=== PATIENT | female | born 1975 | race African-American/Black ===

== ENCOUNTER → 2020-09-08 17:55 | Outpatient (CLI) | payer OTHER, SELFPAY ==
--- NOTE | ~2020-09-08 | MM_ITS ---
EXAMINATION: MM screening [facility] HISTORY: Screening TECHNIQUE: Craniocaudal and mediolateral oblique 3-D tomosynthesis images were obtained and synthetic 2-D images were generated. CAD analysis was submitted and interpreted. COMPARISON: Comparison to multiple prior studies sequentially, with oldest reviewed study dated 06/30. BREAST PARENCHYMAL COMPOSITION: There are scattered areas of fibroglandular density. FINDINGS: There is no evidence of suspicious mass, calcification, or architectural distortion to sugg est malignancy in either breast. There has been no suspicious interval change. IMPRESSION: 1. No mammographic evidence of malignancy. 2. Recommend routine screening mammography in one year. BI-RADS Category 1: Negative Reviewed, dictated and finalized at location A. 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
== END ==
PROVIDERS: PCP Internal Medicine; Visit Provider Obstetrics & Gynecology
DX: Z12.31 Encounter for screening mammogram for malignant neoplasm of breast (principal)
CPT/HCPCS: 77063; 77067

== ENCOUNTER 2021-06-16 19:36 | Emergency (ER) | payer OTHER, SELFPAY ==
[2021-06-16 19:46] VITALS: BP 132/91; PULSE 75; RESP 16; TEMP 36.4; O2SAT 100
[2021-06-16 20:06] LABS: Basophils Percent Auto 0.2 % (0.2-1.2); Eosinophils Percent Auto 0.9 % (0-4.4); Hematocrit 37.8 % (37.0-47.0); Hemoglobin 12.2 g/dL (12.0-15.0); Immature Granulocyte Absolute 0.01 K/mm3 (0.00-0.031); Immature Granulocyte Percent A 0.2 % (0-0.5); Lymphocytes Absolute Auto 1.72 K/mm3 (0.9-3.2); Mean Corpuscular HGB Conc 32.3 g/dl (32-36); Mean Corpuscular Hemoglobin 28.8 pg (26-34); Mean Corpuscular Volume 89.2 fl (80-100); Mean Platelet Volume 10.1 fl (7.4-10.4); Monocytes Absolute Auto 0.5 K/mm3 (0.1-0.6); Monocytes Percent Auto 12.6 % (2.6-8.5); Neutrophils Percent Auto 46.1 % (45.5-73.1); Platelet Count Result 240 k/mm3 (150-375); Red Blood Count 4.24 M/mm3 (4.2-5.4); Red Cell Distribution Width 13.4 % (11.5-14.5); White Blood Count 4.3 K/mm3 (4.5-10.0)
[2021-06-16 20:18] LABS: Alanine Aminotransferase 14 U/L (4-35); Albumin Level 3.9 g/dL (3.5-5.1); Alkaline Phosphatase 72 U/L (38-126); Anion Gap 5 mmol/L (8-16); Aspartate Amino Transferase 19 U/L (14-36); Bilirubin,Total 0.3 mg/dL (0.2-1.3); Blood Urea Nitrogen 12 mg/dL (7-17); Calcium 9.4 mg/dL (8.4-10.2); Carbon Dioxide 25 mmol/L (22-30); Chloride 106 mmol/L (98-107); Estimated CRCL calculation 88 ml/min; Estimated Glomerular Filt Rate > 60; Glucose 99 mg/dL (65-110); Potassium 4.4 mmol/L (3.4-5.0); Sodium 136 mmol/L (137-145)
[2021-06-16 20:57] LABS: INR 0.9
[2021-06-16 20:58] LABS: Partial Thromboplastin Time 25.6 SECONDS (22.3-36.8)
--- NOTE | 2021-06-16 21:57 | ED.GIBLEED ---
HPI - GI Bleed History of Present Illness HPI Narrative: 45 yo female presents to the ED with multiple complaints. She reports that she had unprotected anal sex a few days ago. Since that time she has had rectal pain and some blood in her stools. She also had vaginal intercourse at the same time. She use a condom for this. She is concerned that she may have an STD. No vaginal discharge. Related Data Allergies Allergy/AdvReac Type Severity Reaction Status Date / Time metronidazole Allergy Intermediate Rash Verified 02/15/19 08:55 fluconazole Allergy Unknown Rash Verified 02/15/19 08:55 Penicillins Allergy Unknown Verified 02/15/19 08:55 Review of Systems Review of Systems: All systems reviewed & are unremarkable except as noted in HPI and below Constitutional: Constitutional: Denies fever(s) ENT: Denies dizziness Cardiovascular: Cardiovascular: Denies chest pain Respiratory: Respiratory: Denies dyspnea Gastrointestinal: Gastrointestinal: Denies abdominal pain, Denies nausea and Denies vomiting Genitourinary: Genitourinary: Denies abnormal vaginal bleeding, Denies hematuria, Denies dysuria, Reports pelvic pain and Denies vaginal discharge Neurologic: Denies numbness and Denies weakness [facility] Social History Social History (Updated 06/24/21 @ 14:56 by Jed Houston MD) Gender identity (if verbalized by the patient): Female Sexual Orientation (if Verbalized by the Patient): Straight or Heterosexual Exam Const: General: healthy appearing, no acute distress and alert Orientation/consciousness: patient oriented x3 HENMT: Head: normal to inspection Neck: Neck: normal visual inspection Resp: Effort & Inspection: normal respiratory effort Auscultation: clear to auscultation bilaterally, no rales, no rhonchi and no wheezes Cardio: Jugular venous distension: no JVD Rate: regular rate Rhythm: regular rhythm Heart sounds: no murmurs GI: Inspection: non-distended GI Palp: Yes Soft to palpation and No Tenderness to palpation present (GI) Rectal Exam: No heme positive stool : Speculum Exam - Vagina: abnormal vaginal discharge guan Skin: General skin exam: normal color Neuro: General: patient oriented x3 and moves all extremities Speech: normal speech Extrem: General: no edema Psych: Appearance: well kempt Affect: normal affect Course Vital Signs Vital signs: Vital Signs Temperature 36.4 C L 06/16/21 19:46 Pulse Rate 75 06/16/21 19:46 Respiratory Rate 16 06/16/21 19:46 Blood Pressure 132/91 H 06/16/21 19:46 Pulse Oximetry 100 06/16/21 19:46 Temperature 36.6 C 06/16/21 22:58 Pulse Rate 80 06/17/21 04:11 Respiratory Rate 18 06/17/21 04:11 Blood Pressure 110/80 06/17/21 04:11 Pulse Oximetry 99 06/17/21 04:11 MDM - GI Bleed MDM Narrative Medical decision making narrative: I will treat empirically for STDs. Medical Records Attestation: I reviewed the patient's medical records. Lab Data Attestation: I reviewed the patient's lab results. Result diagrams: 06/16/21 19:59 06/16/21 19:59 Labs: Lab Results 06/16/21 06/16/21 06/16/21 Range/Units 19:59 19:59 19:59 WBC 4.3 L (4.5-10.0) K/mm3 RBC 4.24 (4.2-5.4) M/mm3 Hgb 12.2 (12.0-15.0) g/dL Hct 37.8 (37.0-47.0) % MCV 89.2 (80-100) fl MCH 28.8 (26-34) pg MCHC 32.3 (32-36) g/dl RDW 13.4 (11.5-14.5) % Plt Count 240 (150-375) k/mm3 MPV 10.1 (7.4-10.4) fl Immature Gran % (Auto) 0.2 (0-0.5) % Neut % (Auto) 46.1 (45.5-73.1) % Lymph % (Auto) 40.0 (18.3-44.2) % [place] % (Auto) 12.6 H (2.6-8.5) % Eos % (Auto) 0.9 (0-4.4) % Baso % (Auto) 0.2 (0.2-1.2) % Lymph # (Auto) 1.72 (0.9-3.2) K/mm3 [place] # (Auto) 0.5 (0.1-0.6) K/mm3 Eos # (Auto) 0.0 (0-0.3) K/mm3 Baso # (Auto) 0.0 (0.0-0.1) K/mm3 Abs Immat Gran (auto) 0.01 (0.00-0.031) K/mm3 Absolute Neuts (auto) 2.0 (1.3-6.7) K/mm3 Abs
[2021-06-16 22:58] VITALS: BP 114/77; PULSE 62; RESP 18; TEMP 36.6; O2SAT 99
[2021-06-17 00:18] VITALS: BP 100/58; PULSE 67; RESP 18; O2SAT 99
--- NOTE | 2021-06-17 00:30 | PC.NURSE ---
pelvic setup done by this rn at this time. pt states shes getting antsy. this rn informed pt that the doctor will be in as soon as he can to do the pelvic. md notified.
[2021-06-17 01:45] VITALS: BP 99/58; PULSE 71; RESP 18; O2SAT 100
--- NOTE | 2021-06-17 01:45 | PC.NURSE ---
pt states she still is antsy due to the wait time. states shes nervous. this RN apologized for the wait, updated pt on lab work, informed her all we are waiting on is the pelvic which doctor will do as soon as he can.
--- NOTE | 2021-06-17 02:49 | PC.NURSE ---
Pt up to the desk asking for an update pt states I have been here since seven last night and nothing has been done for me. Do you know me from somewhere or does someone that is working her know me and have a vendetta against me? Is that why nothing has been done? Pt assured that that is not the case and that her lab work is all back and we have been very busy. Pt continues to state she is worried we aren't taking care of her because we know her.
[2021-06-17 03:00] VITALS: BP 102/70; PULSE 80; RESP 18; O2SAT 99
--- NOTE | 2021-06-17 03:00 | PC.NURSE ---
this rn went into room to check on pt, pt angry at this time, asking me for my last name. this rn again apologized for the wait but explains weve been busy. pt states i dont care about the wait. i just dont know why you're treating me this way. do you have a personal vendetta against me? do you know me or something? this rn apologizes to pt, tells her that md will be in as soon as he can. instructs her to use call light if she needs something.
[2021-06-17] MEDS: cefTRIAXone 1 GM VIAL 0.5 GM IM (03:56)
[2021-06-17] MEDS: LIDOCAINE HCL 1% LOCAL INJ 20 ML VIAL (03:56)
[2021-06-17] MEDS: DOXYCYCLINE HYCLATE 100 MG TABLET PO (03:56)
--- NOTE | 2021-06-17 04:02 | PC.NURSE ---
this RN in room 10 giving meds. pt apologizes to this rn for the way she acted. she states a lot of people are mad at me right now and im just paranoid that everyone is mad at me. this rn assures pt that im not mad at her and that theres no reason to apologize.
[2021-06-17 04:11] VITALS: BP 110/80; PULSE 80; RESP 18; O2SAT 99
== END 2021-06-17 04:12 | disposition home or self-care (01) ==
PROVIDERS: Emergency Provider Emergency Medicine; PCP Internal Medicine
DX: N72 Inflammatory disease of cervix uteri (principal); K62.5 Hemorrhage of anus and rectum
CPT/HCPCS: 36415; 80053; 85025; 85610; 85730; 86850; 86900; 86901; 87070; 87491; 87591; 87808; 96372; 99284; A9270; J0696

== ENCOUNTER → 2021-09-10 16:40 | Outpatient (CLI) | payer OTHER, SELFPAY ==
--- NOTE | ~2021-09-10 | MM_ITS ---
EXAMINATION: MM screening [facility] w [facility] HISTORY: Screening TECHNIQUE: Craniocaudal and mediolateral oblique 3-D tomosynthesis images were obtained and synthetic 2-D images were generated. CAD analysis was submitted and interpreted. COMPARISON: Comparison to multiple prior studies sequentially, with oldest reviewed study dated 06/30. BREAST PARENCHYMAL COMPOSITION: There are scattered areas of fibroglandular density. FINDINGS: There is no evidence of suspicious mass, calcification, or architectural distortion to sugg est malignancy in either breast. There has been no suspicious interval change. IMPRESSION: 1. No mammographic evidence of malignancy. 2. Recommend routine screening mammography in one year. BI-RADS Category 1: Negative. Reviewed, dictated and finalized at location A.
== END ==
PROVIDERS: PCP Internal Medicine; Visit Provider Obstetrics & Gynecology
DX: Z12.31 Encounter for screening mammogram for malignant neoplasm of breast (principal)
CPT/HCPCS: 77063; 77067

== ENCOUNTER 2022-05-27 12:26 | Emergency (ER) | payer OTHER, SELFPAY ==
[2022-05-27] VITALS (14 sets, daily range): BP systolic 116–134; BP diastolic 62–81; PULSE 77–88; RESP 16–23; TEMP 36.3; O2SAT 99–100
--- NOTE | ~2022-05-27 | XR_ITS ---
EXAMINATION: XR chest 2V DATE: 05/27/2022 12:58 INDICATION: Chest pain. Shortness of breath. Cough. TECHNIQUE: Frontal and lateral views of the chest were obtained. COMPARISON: Chest 2 views 01/06/2018 FINDINGS: The chest demonstrates clear lungs without pneumonia, pleural effusion, or pneumothorax. Th e heart size is normal. IMPRESSION: 1. No acute cardiopulmonary disease. Reviewed, dictated and finalized at location A.
--- NOTE | 2022-05-27 12:29 | ECG_ITS ---
Measurements Intervals [place] Rate: 82 P: 58 VT: 167 QRS: 13 QRSD: 78 T: 40 QT: 366 QTc: 429 Interpretive Statements SINUS RHYTHM VOLTAGE CRITERIA FOR LVH BASELINE WANDER- V6 BORDERLINE ECG Electronically Signed On 05-27-2022 18:37:51 CDT by Jeremiah Benitez D.O.
[2022-05-27 12:55] LABS: Basophils Percent Auto 0.3 % (0.2-1.2); Eosinophils Percent Auto 0.7 % (0-4.4); Hematocrit 36.5 % (37.0-47.0); Hemoglobin 11.7 g/dL (12.0-15.0); Immature Granulocyte Absolute 0.02 K/mm3 (0.00-0.031); Immature Granulocyte Percent A 0.3 % (0-0.5); Lymphocytes Absolute Auto 1.97 K/mm3 (0.9-3.2); Lymphocytes Percent Auto 33.1 % (18.3-44.2); Mean Corpuscular HGB Conc 32.1 g/dl (32-36); Mean Corpuscular Hemoglobin 28.6 pg (26-34); Mean Corpuscular Volume 89.2 fl (80-100); Mean Platelet Volume 10.5 fl (7.4-10.4); Monocytes Absolute Auto 0.4 K/mm3 (0.1-0.6); Monocytes Percent Auto 7.1 % (2.6-8.5); Neutrophils Absolute Auto 3.5 K/mm3 (1.3-6.7); Neutrophils Percent Auto 58.5 % (45.5-73.1); Platelet Count Result 235 k/mm3 (150-375); Red Blood Count 4.09 M/mm3 (4.2-5.4); Red Cell Distribution Width 13.5 % (11.5-14.5)
[2022-05-27 12:59] LABS: Alanine Aminotransferase 13 U/L (6-35); Albumin Level 4.2 g/dL (3.5-5.1); Alkaline Phosphatase 63 U/L (38-126); Anion Gap 5 mmol/L (8-16); Aspartate Amino Transferase 23 U/L (14-36); Bilirubin,Total 0.5 mg/dL (0.2-1.3); Blood Urea Nitrogen 9 mg/dL (7-17); Calcium 8.5 mg/dL (8.4-10.2); Carbon Dioxide 26 mmol/L (22-30); Chloride 104 mmol/L (98-107); Estimated CRCL calculation 90 ml/min; Estimated Glomerular Filt Rate > 60; Glucose 88 mg/dL (65-110); Lipase 56 U/L (23-300); Potassium 3.7 mmol/L (3.4-5.0); Sodium 135 mmol/L (137-145)
[2022-05-27 13:00] LABS: Partial Thromboplastin Time 26.5 SECONDS (22.3-36.8); Prothrombin Time 12.9 Seconds (11.1-14.7)
[2022-05-27 13:11] LABS: Troponin I < 0.012 ng/mL (0.000-0.034)
[2022-05-27 16:16] LABS: Troponin I < 0.012 ng/mL (0.000-0.034)
--- NOTE | 2022-05-27 16:43 | ED.GENADULT ---
HPI - General Adult General Chief complaint: Chest Pain Stated complaint: shortness of breath Time Seen by Provider: 05/27/22 15:40 History of Present Illness HPI narrative: 46-year-old female presenting to the emergency department for evaluation of intermittent shortness of breath and left-sided chest pain. That has been going on for approximately 1 week. Patient states she is also had intermittent lower extremity swelling. Patient states that her legs were swollen yesterday but have improved. Patient has no current leg swelling. Patient does have intermittent cough as well. Patient describes the left-sided chest pain as short and brief. Patient stated is not worsened with cough is not worsened with deep inspiration and she is unable to do any activities to induce it. She states it happens multiple times a day and is very short lasting. Patient denies any prior history of IN. Patient denies any prior history of PE or DVT. Related Data Allergies Allergy/AdvReac Type Severity Reaction Status Date / Time metronidazole Allergy Intermediate Rash Verified 02/15/19 08:55 fluconazole Allergy Unknown Rash Verified 02/15/19 08:55 Penicillins Allergy Unknown Verified 02/15/19 08:55 Review of Systems Review of Systems: CONSTITUTIONAL: Denies fever, chills, or sweats. EYES: Denies visual changes, redness, or discharge. ENT: Denies rhinorrhea, congestion, sore throat, or otalgia. CARDIOVASCULAR: See HPI RESPIRATORY: See HPI GASTROINTESTINAL: Denies abdominal pain, nausea, vomiting, or diarrhea. GENITOURINARY: Denies dysuria or hematuria. SKIN: Denies rash or itching. MUSCULOSKELETAL: Denies back pain, joint pain, or myalgia. NEUROLOGIC: Denies headache, numbness, or weakness. [facility] Social History Social History (Updated 06/24/21 @ 14:56 by Jed Houston MD) Gender identity (if verbalized by the patient): Female Sexual Orientation (if Verbalized by the Patient): Straight or Heterosexual Exam Narrative: APPEARANCE: Well appearing, no pain, no distress, well-nourished. HEAD: normocephalic, atraumatic. EYES: PERRLA/EOMI, conjunctivae clear. NOSE: Normal no drainage THROAT: Pharynx clear, no exudate. NECK: Supple. No adenopathy, no masses. RESPIRATORY: Airway patent, respirations nonlabored. Clear to auscultation bilaterally, no rales, rhonchi, wheezing. CARDIOVASCULAR: Regular rate and rhythm without murmurs rubs or gallops. ABDOMINAL: Soft, nontender, nondistended, normal bowel sounds MUSCULOSKELETAL: Moves all extremities. Strength/ROM intact, No edema, No calf tenderness. NEURO: Alert. Cranial nerves II through XII intact. Grossly intact SKIN: Warm, dry. Normal Color Course Course Emergency Course: EKG showed normal sinus rhythm with no acute abnormality. Chest x-ray showed no acute cardiopulmonary disease. Patient had negative serial troponins. Patient's D-dimer was not elevated. Patient had no lower extremity edema or tenderness. Patient was afebrile with no leukocytosis. Electrolytes are within normal limits. Vital Signs Vital signs: Vital Signs Temperature 97.4 F L 05/27/22 12:46 Pulse Rate 86 05/27/22 12:46 Respiratory Rate 16 05/27/22 12:46 Blood Pressure 116/81 05/27/22 12:46 Pulse Oximetry 100 05/27/22 12:46 Oxygen Delivery Room Air 05/27/22 12:46 Temperature 97.4 F L 05/27/22 12:46 Pulse Rate 81 05/27/22 17:30 Respiratory Rate 20 05/27/22 17:30 Blood Pressure 130/62 05/27/22 17:30 Pulse Oximetry 99 05/27/22 17:30 Oxygen Delivery Room Air 05/27/22 12:46 Medical Decision Making Vital Signs Vital Signs: Vital Signs Temperature 97.4 F L 05/27/22 12:46 Pulse Rate 86 05/27/22 12:46 Respiratory Rate 16 05/27/22 12:46 Blood Pressure 116/81 05/27/22 12:46 Pulse Oximetry 100 05/27/22 12:46 Oxygen Delivery Room Air 05/27/22 12:46 Temperature 97.4 F L 05/27/22 12:46 Pulse Rate 81 05/27/22 17:30 Respiratory Rate 20 05/27/22
[2022-05-27 17:06] LABS: D Dimer 0.23 ug/mL (<0.48)
== END 2022-05-27 18:07 | disposition home or self-care (01) ==
PROVIDERS: Emergency Provider Emergency Medicine
DX: R07.89 Other chest pain (principal); R94.31 Abnormal electrocardiogram [ECG] [EKG]
CPT/HCPCS: 36415; 71046; 80053; 83690; 84484; 85025; 85380; 85610; 85730; 93005; 99284

== ENCOUNTER 2022-10-20 04:38 | Emergency (ER) | payer OTHER, SELFPAY ==
[2022-10-20 04:43] VITALS: BP 128/72; PULSE 82; RESP 18; TEMP 36.6; O2SAT 100
[2022-10-20 06:51] LABS: Influenza A QL RT-PCR Negative (Negative); Influenza B QL RT-PCR Negative (Negative); SARS-CoV-2 RNA PCR Negative
--- NOTE | 2022-10-20 07:44 | ED.URI ---
HPI - URI/Sore Throat General Chief Complaint: Upper Respiratory Infection Stated Complaint: sore throat, sinus Time Seen by Provider: 10/20/22 07:01 History of Present Illness HPI Narrative: This is a 46-year-old female who denies past medical history, presenting to the emergency department with complaints of sore throat, nasal congestion and diffuse myalgias for the past 2 days. She states her son's classmates have had similar symptoms. She has tried home remedies without significant improvement. She denies nausea vomiting or diarrhea. Related Data Allergies Allergy/AdvReac Type Severity Reaction Status Date / Time metronidazole Allergy Intermediate Rash Verified 02/15/19 08:55 fluconazole Allergy Unknown Rash Verified 02/15/19 08:55 Penicillins Allergy Unknown Verified 02/15/19 08:55 Review of Systems Review of Systems: CONSTITUTIONAL: Denies fever, chills, or sweats. EYES: Denies visual changes, redness, or discharge. ENT: Rhinorrhea, congestion, sore throat, otalgia CARDIOVASCULAR: Denies chest pain, palpitations, or edema. RESPIRATORY: Denies cough or dyspnea. GASTROINTESTINAL: Denies abdominal pain, nausea, vomiting, or diarrhea. GENITOURINARY: Denies dysuria or hematuria. SKIN: Denies rash or itching. MUSCULOSKELETAL: Myalgias denies back pain, joint pain, NEUROLOGIC: Denies headache, numbness, dizziness, or weakness. PSYCHIATRIC: Denies anxiety or depression. [facility] Social History Social History Gender identity (if verbalized by the patient): Female Sexual Orientation (if Verbalized by the Patient): Straight or Heterosexual Exam Narrative: GENERAL: Well-developed, well-nourished, appears uncomfortable HEAD: Normocephalic, atraumatic. EYES: PERRLA and EOMI. ENT: Nares clear, no rhinorrhea or epistaxis. Mucous membranes moist. Oropharynx without tonsillar hypertrophy exudate or other lesions. Right TM with clear fluid and small amount of bulging without purulence or significant erythema, left TM pearly guan nonbulging NECK: Supple. No adenopathy or masses. No carotid bruits or JVD CHEST: Clear to auscultation. No respiratory distress. No wheezes rales or rhonchi HEART: Regular rate and rhythm. No murmur heard. Normal peripheral pulses. ABDOMEN: Soft, nontender, nondistended, normal active bowel sounds. EXTREMITIES: Normal range of motion. No edema. SKIN: Warm, dry, no rash. NEURO: No focal deficits. Alert and oriented x3. PSYCH: Normal mood and affect. Course Course Emergency Course: 09:12 - COVID flu and strep swabs negative. Discussed findings with the patient and recommendations for symptomatic management at home. Discussed return emergent precautions including signs/symptoms of respiratory distress and intractable vomiting. The patient voiced understanding and is comfortable with the plan. All questions answered to her satisfaction. Vital Signs Vital signs: Vital Signs Temperature 97.9 F 10/20/22 04:43 Pulse Rate 82 10/20/22 04:43 Respiratory Rate 18 10/20/22 04:43 Blood Pressure 128/72 10/20/22 04:43 Pulse Oximetry 100 10/20/22 04:43 Oxygen Delivery Room Air 10/20/22 04:43 Temperature 98.3 F 10/20/22 08:42 Pulse Rate 82 10/20/22 04:43 Respiratory Rate 18 10/20/22 04:43 Blood Pressure 128/72 10/20/22 04:43 Pulse Oximetry 100 10/20/22 04:43 Oxygen Delivery Room Air 10/20/22 04:43 MDM - URI/Sore Throat MDM Narrative Medical decision making narrative: Plan: Labs, pain control, reassess Differential Diagnosis Differential diagnosis: Likely upper respiratory infection, influenza and other (COVID, other) Lab Data Labs: Lab Results 10/20/22 10/20/22 Range/Units 06:09 08:10 Influenza A (RT-PCR) Negative (Negative) Influenza B (RT-PCR) Negative (Negative) SARS-CoV-2 RNA (RT-PCR) Negative Group A Strep (PCR) Not detected (Negative) UCG Bedside Result
[2022-10-20 08:04] VITALS: TEMP 36.8
[2022-10-20] MEDS: LIDOCAINE HCL 2% VISC SOLN 15 ML UDC PO (08:12)
[2022-10-20] MEDS: ACETAMINOPHEN 500 MG TABLET 1000 MG PO (08:12)
[2022-10-20 08:42] VITALS: TEMP 36.8
[2022-10-20 08:46] LABS: Strep Group A RT-PCR NOT DETECTED (Negative)
== END 2022-10-20 09:40 | disposition home or self-care (01) ==
PROVIDERS: Emergency Medicine; Emergency Provider Preventive Medicine Aerospace Medicine; PCP Internal Medicine
DX: J06.9 Acute upper respiratory infection, unspecified (principal); H92.01 Otalgia, right ear; Z20.822 Contact with and (suspected) exposure to COVID-19
CPT/HCPCS: 81025; 87636; 87651; 99283; A9270

== ENCOUNTER → 2022-10-23 16:07 | Outpatient (CLI) | payer OTHER, SELFPAY ==
--- NOTE | ~2022-10-23 | MM_ITS ---
EXAMINATION: MM screening [facility] BI w [facility] HISTORY: Screening TECHNIQUE: Craniocaudal and mediolateral oblique 3-D tomosynthesis images were obtained and synthetic 2-D images were generated. CAD analysis was submitted and interpreted. COMPARISON: Comparison to multiple prior studies sequentially, with oldest reviewed study dated 06/30. BREAST PARENCHYMAL COMPOSITION: There are scattered areas of fibroglandular density. FINDINGS: There is no evidence of suspicious mass, calcification, or architectural distortion to sugg est malignancy in either breast. There has been no suspicious interval change. IMPRESSION: 1. No mammographic evidence of malignancy. 2. Recommend routine screening mammography in one year. BI-RADS Category 1: Negative Reviewed, dictated and finalized at location B. 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
== END ==
PROVIDERS: PCP Obstetrics & Gynecology; Visit Provider Obstetrics & Gynecology
DX: Z12.31 Encounter for screening mammogram for malignant neoplasm of breast (principal)
CPT/HCPCS: 77063; 77067

== ENCOUNTER 2023-03-09 18:04 | Emergency (ER) | payer OTHER, SELFPAY ==
[2023-03-09 18:18] VITALS: BP 105/76; PULSE 89; RESP 18; TEMP 36.4; O2SAT 99
--- NOTE | 2023-03-09 18:43 | ED.GENADULT ---
HPI - General Adult General Chief complaint: Upper Respiratory Infection Stated complaint: Sore Throat/Ears Irritation Time Seen by Provider: 03/09/23 18:43 Source: patient, RN notes reviewed and old records reviewed Mode of arrival: ambulatory Limitations: no limitations History of Present Illness HPI narrative: 47-year-old female presents to the [facility] with complaints of a sore throat and right ear discomfort since yesterday. No treatment prior to arrival. Son started with similar symptoms on Friday, 4 days ago. Diagnosed with a virus. Onset (ago): day(s) (1) Related Data Home Medications Medication Instructions Recorded Confirmed epinephrine 0.3 mg/0.3 mL 03/09/23 injection, auto-injector escitalopram oxalate 10 mg tablet mg 03/09/23 mometasone 0.1 % topical ointment topical 03/09/23 Allergies Allergy/AdvReac Type Severity Reaction Status Date / Time metronidazole Allergy Intermediate Rash Verified 02/15/19 08:55 fluconazole Allergy Unknown Rash Verified 02/15/19 08:55 Penicillins Allergy Unknown Unknown Verified 03/09/23 18:17 shellfish derived Allergy Unknown Verified 03/09/23 18:17 Review of Systems Review of Systems: All systems reviewed & are unremarkable except as noted in HPI and below Constitutional: Constitutional: Reports no additional constitutional complaints Eyes: Eyes: Reports no additional eye complaints ENT: Reports as per HPI, Reports otalgia and Reports sore throat Cardiovascular: Cardiovascular: Reports no additional cardiovascular complaints, Denies chest pain and Denies dyspnea Respiratory: Respiratory: Reports no additional respiratory complaints, Denies chest congestion, Denies cough and Denies dyspnea Gastrointestinal: Gastrointestinal: Reports no additional gastrointestinal complaints, Denies abdominal pain, Denies nausea and Denies vomiting Musculoskeletal: Musculoskeletal: Reports no additional musculoskeletal complaints Integumentary/Breasts: Skin/Breast: Reports system reviewed and no additional complaints, except as docu Neurologic: Reports system reviewed and no additional complaints, except as documented Psychiatric: Psychiatric: Reports no additional psychiatric complaints Allergic/Immunologic: Allergic/Immunologic: Reports no additional allergic/immunologic complaints PMFSH Social History Social History Gender identity (if verbalized by the patient): Female Sexual Orientation (if Verbalized by the Patient): Straight or Heterosexual Comments At the time of my signature, I reviewed and agree with the nursing past medical, surgical, social, and family history. There is no relevant family history pertinent to the patient complaint. Exam Const: General: cooperative, healthy appearing, comfortable, no acute distress, well developed, alert and well nourished Nutritional Appearance: well nourished Orientation/consciousness: patient oriented x3 Limitations: no limitations HENMT: Head: normal to inspection Ears: hearing grossly normal bilaterally, external ears normal, EAC's normal and TM abnormal bulging on the right Face/Nose/Sinus: Normal external nose present, Normal nares present, Normal nasal mucous membranes and turbinates present and normal facial exam Face and sinus: normal facial exam, sinuses nontender and face symmetric Mouth: Yes Normal oral and palatal mucosa present, Yes lip normal and Yes moist mucous membranes Throat: posterior oropharynx normal, uvula midline and postnasal drainage Eyes: General: appearance normal, both eyes and all related structures Alignment and Position: alignment normal Periorbital: periorbital findings normal Conjunctivae: conjunctivae normal Pupils: Equal, round and reactive pupils present EOM: EOMs intact bilaterally Neck: Neck: normal visual inspection, full ROM, no lymphadenopathy and no meningeal signs Chest: Chest palpation & inspection: norm
== END 2023-03-09 19:04 | disposition home or self-care (01) ==
PROVIDERS: Emergency Provider Nurse Practitioner; PCP Internal Medicine
DX: J06.9 Acute upper respiratory infection, unspecified (principal); H65.01 Acute serous otitis media, right ear
CPT/HCPCS: 87081; 87880; 99213; G0463

== ENCOUNTER 2023-10-05 04:35 | Emergency (ER) | payer OTHER, SELFPAY ==
[2023-10-05 04:36] VITALS: BP 117/77; PULSE 104; RESP 16; TEMP 36.7; O2SAT 98
--- NOTE | 2023-10-05 05:46 | PC.NURSE ---
Pt approached triage desk and states that she is going to home to lay down and does not want to be seen. Pt ambulated out of ED with steady gait
== END 2023-10-05 06:33 | disposition left against medical advice (07) ==
LOC: ANHED 05:53
PROVIDERS: PCP Internal Medicine
DX: R10.32 Left lower quadrant pain (principal)
CPT/HCPCS: 99199

== ENCOUNTER 2024-01-20 17:57 | Emergency (ER) | payer OTHER, SELFPAY ==
[2024-01-20 18:09] VITALS: BP 131/82; PULSE 95; RESP 16; TEMP 37; O2SAT 99
--- NOTE | 2024-01-20 18:21 | ED.EXTPRO ---
HPI - Extremity Problem General Chief complaint: Extremity Problem,Nontraumatic Stated complaint: Left Ankle Irritation Time Seen by Provider: 01/20/24 18:21 Source: patient Mode of arrival: ambulatory Limitations: no limitations History of Present Illness HPI Narrative: 48 y/o female presented for c/o possible insect bite to the left ankle last night. Endorses improvement in the swelling since last night, but it is not fully resolved and she reports a small black dot and is concerned for insect implanting eggs into her skin. she has applied rubbing alcohol to the site. She has been able to walk on the leg without difficulty today. She has not taken anything for pain. Denies numbness, tingling, weakness or discoloration of the foot. Related Data Home Medications Medication Instructions Recorded Confirmed No Home Medications 01/20/24 01/20/24 Allergies Allergy/AdvReac Type Severity Reaction Status Date / Time metronidazole Allergy Intermediate Rash Verified 01/20/24 18:25 fluconazole Allergy Unknown Rash Verified 01/20/24 18:25 Penicillins Allergy Unknown Unknown Verified 01/20/24 18:25 shellfish derived Allergy Unknown Verified 01/20/24 18:25 Review of Systems Review of Systems: CONSTITUTIONAL: Denies body aches, fever, chills, or sweats. EYES: Denies visual changes, redness, or discharge. ENT: Denies rhinorrhea, congestion CARDIOVASCULAR: Denies chest pain, palpitations, or edema. RESPIRATORY: Denies cough or dyspnea. GASTROINTESTINAL: Denies abdominal pain, nausea, vomiting, or diarrhea. SKIN: reports left ankle swelling, black spot at center MUSCULOSKELETAL: Denies back pain, joint pain, or myalgia. NEUROLOGIC: Denies headache, numbness, tingling, or weakness. [facility] Social History Social History Gender identity (if verbalized by the patient): Female Sexual Orientation (if Verbalized by the Patient): Straight or Heterosexual Comments At time of signature, I have reviewed and agree with nursing past medical, surgical, social and family history unless otherwise noted. Please see nursing chart for further information. There is no relevant family history pertinent to the presenting complaint Exam Narrative: GENERAL: Well-appearing ENT: Mucous membranes moist. Oropharynx without edema, erythema or lesions. NECK: Supple. No lymphadenopathy CHEST: Clear to auscultation. HEART: Regular rate and rhythm. SKIN: Warm, dry. Left lateral ankle with minimal localized swelling, flat darkened round pinpoint lesion at the center; nontender, no warmth, induration or erythema. Full ROM to ankle. Ambulates with steady gait. NEURO: Alert and oriented x3. Extrem: Ankle/foot/toe images: 1. left lateral ankle localized swelling Course Course Emergency Course: Patient is aware of diagnosis, understands and agrees to treatment plan. Anticipatory guidance given. Patient agrees to follow-up as directed and is aware of reasons to seek care at the emergency department. Portions of this record may have been created with voice recognition software Level of Care: Express Care Visit Vital Signs Vital signs: Vital Signs Temperature 98.6 F 01/20/24 18:09 Pulse Rate 95 01/20/24 18:09 Respiratory Rate 16 01/20/24 18:09 Blood Pressure 131/82 01/20/24 18:09 Pulse Oximetry 99 01/20/24 18:09 Oxygen Delivery Room Air 01/20/24 18:09 Temperature 98.6 F 01/20/24 18:09 Pulse Rate 95 01/20/24 18:09 Respiratory Rate 16 01/20/24 18:09 Blood Pressure 131/82 01/20/24 18:09 Pulse Oximetry 99 01/20/24 18:09 Oxygen Delivery Room Air 01/20/24 18:09 Reviewed MDM - Extremity (Nontraumatic) MDM Narrative Medical decision making narrative: Discussed physical exam findings; no signs of infection or indication for abx. Advised supportive measures and signs/symptoms to go to the ER. Pt is appropriate for outpt treatment
== END 2024-01-20 18:35 | disposition home or self-care (01) ==
PROVIDERS: Emergency Provider Nurse Practitioner Family; PCP Internal Medicine
DX: S90.562A Insect bite (nonvenomous), left ankle, initial encounter (principal); W57.XXXA Bitten or stung by nonvenomous insect and other nonvenomous arthropods, initial encounter
CPT/HCPCS: 99211; G0463

== ENCOUNTER 2024-01-26 17:48 | Emergency (ER) | payer OTHER, SELFPAY ==
--- NOTE | ~2024-01-26 | CT_ITS ---
EXAMINATION: CT soft tissue neck w con DATE: 01/26/2024 21:51 INDICATION: Fever, throat pain, evaluate for peritonsillar or retropharyngeal abscess. TECHNIQUE: Computed tomography (CT) of the neck was performed with 75 mL Omnipaque-350 intravenous co ntrast. The dose-length product was 445.12 mGy-cm. COMPARISON: None FINDINGS: Enlarged thyroid gland, no significant nodules. Normal parotid glands. Prominent bilateral submandi bular glands. There is no cervical lymphadenopathy. There are no masses identified. The superior mediastinum is unremarkable. The airway is unremarkable. Parapharyngeal and pre-glottic fat plan es are preserved. Normal enhancing neck vessels. The orbits are unremarkable. Visualized sinuses and mastoid air cells are well aerated. There are lungs. Normal regional bones. IMPRESSION: Mildly enlarged bilateral submandibular glands. Otherwise normal CT soft tissue neck findings. Reviewed, dictated and finalized at location K.
--- NOTE | ~2024-01-26 | CT_ITS ---
EXAMINATION: CTA chest PE protocol DATE: 01/26/2024 21:52 INDICATION: chest pain, eval for PE TECHNIQUE: Computed tomography angiography (CTA) of the chest was performed with 100 mL Omnipaque-350 intravenous contrast timed to evaluate the pulmonary arteries. Coronal maximum intensity projection 3D-reconstructions were created by the technologist. The dose-length product (DLP) was 465.38 mGy-cm. Automated exposure control and iterative reconstruction technique were employed. COMPARISON: X-ray chest, same date. FINDINGS: Lung parenchyma and airways: Clear. Pleura: Unremarkable. Thoracic inlet, axillae and chest wall: Enlarged thyroid. Thoracic aorta: No significant dilation. No dissection. Mediastinum: Normal. Heart and pericardium: Normal. Coronary artery calcifications: Absent. Upper abdomen: No significant finding. Bones: No acute osseous finding. Pulmonary arteries: Study quality: Adequate. No pulmonary emboli detected. IMPRESSION: No CT evidence of acute pulmonary embolus. No acute process detected in the chest. Thyroid goiter. Reviewed, dictated and finalized at location K.
--- NOTE | ~2024-01-26 | XR_ITS ---
EXAMINATION: XR chest 2V Exam Date/Time: 01/26/2024 18:00 CDT HISTORY: dyspnea, COUGH, ELEVATED HR Comparison: 05/28/2022. RESULT: Lines, tubes, and devices: None. Lungs and pleura: Clear. Cardiomediastinal silhouette: Stable. Other: No acute osseous or upper abdominal finding. IMPRESSION: No acute cardiopulmonary process. Reviewed, dictated and finalized at location K.
--- NOTE | 2024-01-26 17:49 | ECG_ITS ---
Measurements Intervals [place] Rate: 116 P: 51 IA: 154 QRS: 6 QRSD: 77 T: 39 QT: 302 QTc: 420 Interpretive Statements SINUS TACHYCARDIA DELAYED PRECORDIAL R/S TRANSITION VOLTAGE CRITERIA FOR LVH ABNORMAL ECG COMPARED TO ECG 05/27/2022 12:33:58 SINUS TACHYCARDIA NOW PRESENT Electronically Signed On 01-26-2024 19:29:26 CDT by Jeremiah Benitez D.O.
[2024-01-26 18:46] VITALS: BP 131/81; PULSE 118; RESP 20; TEMP 38.7; O2SAT 99
--- NOTE | 2024-01-26 18:52 | ED.GENADULT ---
HPI - General Adult General Chief complaint: Chest Pain <Mireya Godfrey, PIN DRAFTING MACHINE TENDER - Last Filed: 01/26/24 19:01> Stated complaint: chest pain, dyspnena <Mireya Godfrey, PIN DRAFTING MACHINE TENDER - Last Filed: 01/26/24 19:01> Time Seen by Provider: 01/26/24 18:52 <Mireya Godfrey, PIN DRAFTING MACHINE TENDER - Last Filed: 01/26/24 19:01> Focused HPI: Rachel Maki is a 48 y/o female who presents with complaints of productive cough/ sore throat / chest pain that started 2-3 days ago. Chest pain is constant to mid chest/ it woke her up out of her sleep last night. She also feels SOB + febrile / + tachycardic went to the and was sent to ER for cardiac work up and told her she might have a blood clot. GENERAL: in no acute distress. HEAD: Normocephalic, atraumatic. CHEST: Clear to auscultation. ?No respiratory distress. HEART: Regular rate and rhythm.? NEURO: ?Alert and oriented x3. Patient screened in triage and initial orders placed.? ?Additional care and disposition to be based upon?diagnostic testing and treatment. <Mireya Mcguire March, PIN DRAFTING MACHINE TENDER - Last Filed: 01/26/24 19:01> History of Present Illness HPI narrative: Patient is a 48-year-old female who presents emergency department with chief complaint of cough sore throat and chest pain. Patient reports been ongoing for about 2-3 days reports that the cough has been getting worse reports he has been having fevers and reports Dr. Primary care provider told her to come to the emergency department the patient then went to urgent care who told her to come to the emergency department the patient reports she feels miserable as body aches and reports that her symptoms have not been improved by anything. <Washington Avalos MD - Last Filed: 01/26/24 22:34> Related Data Allergies/adverse reactions: Allergies Allergy/AdvReac Type Severity Reaction Status Date / Time metronidazole Allergy Intermediate Rash Verified 01/26/24 20:21 fluconazole Allergy Unknown Rash Verified 01/26/24 20:21 Penicillins Allergy Unknown Unknown Verified 01/26/24 20:21 shellfish derived Allergy Unknown Verified 01/26/24 20:21 <Mireya Godfrey APRN - Last Filed: 01/26/24 19:01> Review of Systems Review of Systems: A 10 system review of systems was completed on the patient and is negative except for what is stated in the HPI. Nursing and ancillary documentation was reviewed. <Washington Avalos MD - Last Filed: 01/26/24 22:34> PMFSH Social History Social History: Social History Gender identity (if verbalized by the patient): Female Sexual Orientation (if Verbalized by the Patient): Straight or Heterosexual <Mireya Godfrey APRN - Last Filed: 01/26/24 19:01> Exam Narrative: GENERAL: Well-appearing, well-nourished, and in no acute distress. HEAD: Normocephalic, atraumatic. EYES: PERRLA and EOMI. ENT: Nares clear, no rhinorrhea or epistaxis. Mucous membranes moist. NECK: Supple. CHEST: Clear to auscultation. No respiratory distress. HEART: Regular rate and rhythm. No murmur heard. Normal peripheral pulses. ABDOMEN: Soft, nontender, nondistended, normal active bowel sounds. EXTREMITIES: Normal range of motion. No edema. SKIN: Warm, dry, no rash. NEURO: No focal deficits. Alert and oriented x3. PSYCH: Normal mood and affect. <Washington Avalos MD - Last Filed: 01/26/24 22:34> Course Vital Signs Vital signs: Vital Signs Temperature 38.7 C H 01/26/24 18:46 Pulse Rate 118 H 01/26/24 18:46 Respiratory Rate 20 01/26/24 18:46 Blood Pressure 131/81 01/26/24 18:46 Pulse Oximetry 99 01/26/24 18:46 Temperature 38.7 C H 01/26/24 18:46 Pulse Rate 118 H 01/26/24 18:46 Respiratory Rate 20 01/26/24 18:46 Blood Pressure 131/81 01/26/24 18:46 Pulse Oximetry 99 01/26/24 18:46 Oxygen Delivery Room Air 01/26/24 20:20 <Mireya Godfrey APRN - Last Filed: 01/26/24 19:01> Vital Signs Temperatur
[2024-01-26 18:54] LABS: Basophils Percent Auto 0.1 % (0.2-1.2); Eosinophils Absolute Auto 0.1 K/mm3 (0-0.3); Eosinophils Percent Auto 0.9 % (0-4.4); Hematocrit 37.5 % (37.0-47.0); Hemoglobin 12.3 g/dL (12.0-15.0); Immature Granulocyte Absolute 0.01 K/mm3 (0.00-0.031); Immature Granulocyte Percent A 0.1 % (0-0.5); Lymphocytes Absolute Auto 0.85 K/mm3 (0.9-3.2); Lymphocytes Percent Auto 12.4 % (18.3-44.2); Mean Corpuscular HGB Conc 32.8 g/dl (32-36); Mean Corpuscular Hemoglobin 28.7 pg (26-34); Mean Corpuscular Volume 87.4 fl (80-100); Mean Platelet Volume 9.8 fl (7.4-10.4); Monocytes Absolute Auto 0.4 K/mm3 (0.1-0.6); Monocytes Percent Auto 6.3 % (2.6-8.5); Neutrophils Absolute Auto 5.5 K/mm3 (1.3-6.7); Neutrophils Percent Auto 80.2 % (45.5-73.1); Platelet Count Result 221 k/mm3 (150-375); Red Blood Count 4.29 M/mm3 (4.2-5.4); Red Cell Distribution Width 13.8 % (11.5-14.5); White Blood Count 6.8 K/mm3 (4.5-10.0)
[2024-01-26 19:04] LABS: Prothrombin Time 13.1 Seconds (11.1-14.7)
[2024-01-26 19:05] LABS: Alanine Aminotransferase 13 U/L (6-35); Albumin Level 4.1 g/dL (3.5-5.1); Alkaline Phosphatase 67 U/L (38-126); Anion Gap 6 mmol/L (8-16); Aspartate Amino Transferase 19 U/L (14-36); Bilirubin,Total 0.5 mg/dL (0.2-1.3); Blood Urea Nitrogen 10 mg/dL (7-17); Calcium 9.2 mg/dL (8.4-10.2); Carbon Dioxide 25 mmol/L (22-30); Chloride 103 mmol/L (98-107); Estimated CRCL calculation 90 ml/min; Estimated Glomerular Filt Rate > 60; Glucose 107 mg/dL (65-110); Lipase 60 U/L (23-300); Partial Thromboplastin Time 27.1 Seconds (22.3-36.8); Potassium 3.8 mmol/L (3.4-5.0); Sodium 134 mmol/L (137-145)
[2024-01-26 19:16] LABS: Troponin I < 0.012 ng/mL (0.000-0.034)
[2024-01-26 19:20] LABS: Strep Group A RT-PCR NOT DETECTED (Negative)
[2024-01-26 19:32] LABS: Influenza A QL RT-PCR Negative (Negative); Influenza B QL RT-PCR Negative (Negative); RSV RNA, RT-PCR Negative (Negative); SARS-CoV-2 RNA PCR Negative (Negative)
[2024-01-26] MEDS: ACETAMINOPHEN 500 MG TABLET 1000 MG PO (20:22)
--- NOTE | 2024-01-26 20:35 | ECG_ITS ---
Measurements Intervals [place] Rate: 115 P: 58 IA: 161 QRS: 9 QRSD: 76 T: 45 QT: 342 QTc: 474 Interpretive Statements SINUS TACHYCARDIA POSSIBLE LEFT ATRIAL ENLARGEMENT ABNORMAL ECG COMPARED TO ECG 01/26/2024 18:37:28 NO SIGNIFICANT CHANGES Electronically Signed On 01-27-2024 6:24:29 CDT by Jeremiah Benitez D.O.
[2024-01-26 21:23] LABS: D Dimer 0.31 ug/mL (<0.48)
[2024-01-26] MEDS: SODIUM CHLORIDE 0.9% IV 1,000 ML 999 ML IV CONT (21:23)
[2024-01-26 22:43] VITALS: BP 130/70; PULSE 101; RESP 20; TEMP 37.3; O2SAT 99
== END 2024-01-26 22:53 | disposition home or self-care (01) ==
PROVIDERS: Emergency Medicine; Nurse Practitioner Family; Emergency Provider Emergency Medicine; PCP Internal Medicine
DX: K11.20 Sialoadenitis, unspecified (principal); Z20.822 Contact with and (suspected) exposure to COVID-19; R00.0 Tachycardia, unspecified; R94.31 Abnormal electrocardiogram [ECG] [EKG]
CPT/HCPCS: 36415; 70491; 71046; 71275; 80053; 83690; 84484; 85025; 85380; 85610; 85730; 87637; 87651; 93005; 96360; 99284; A9270; J7030; Q9967

== ENCOUNTER 2024-02-21 07:59 | Outpatient (CLI) | payer OTHER, SELFPAY ==
--- NOTE | ~2024-02-21 | MM_ITS ---
EXAMINATION: MM screening bashir BI w scott HISTORY: Screening TECHNIQUE: Craniocaudal and mediolateral oblique 3-D tomosynthesis images were obtained and synthetic 2-D images were generated. CAD analysis was submitted and interpreted. COMPARISON: Comparison to multiple prior studies sequentially, with oldest reviewed study dated 11/2020. BREAST PARENCHYMAL COMPOSITION: Not dense: There are scattered areas of fibroglandular density. FINDINGS: There is no evidence of suspicious mass, calcification, or architectural distortion to sugg est malignancy in either breast. There has been no suspicious interval change. IMPRESSION: 1. No mammographic evidence of malignancy. 2. Recommend routine screening mammography in one year. BI-RADS Category 1: Negative Reviewed, dictated and finalized at location A.
== END 2024-02-21 08:00 ==
LOC: MICIMG 08:00
PROVIDERS: PCP Obstetrics & Gynecology; Visit Provider Obstetrics & Gynecology
DX: Z12.31 Encounter for screening mammogram for malignant neoplasm of breast (principal)
CPT/HCPCS: 77063; 77067

== ENCOUNTER 2024-06-02 08:51 | Emergency (ER) | payer OTHER, SELFPAY ==
[2024-06-02] VITALS (24 sets, daily range): BP systolic 113–142; BP diastolic 75–92; PULSE 70–106; RESP 9–28; TEMP 36.6–36.8; O2SAT 97–100
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
--- NOTE | 2024-06-02 08:53 | ECG_ITS ---
Test Date: 2024-06-02 08:58:10 Measurements Intervals [place] Rate: 75 P: 53 MA: 156 QRS: 4 QRSD: 78 T: 29 QT: 378 QTc: 422 Interpretive Statements SINUS RHYTHM VOLTAGE CRITERIA FOR LVH BORDERLINE ST-T WAVE ABNORMALITY- INFERIOR LEADS BORDERLINE ECG No previous ECG available for comparison Electronically Signed On 06-02-2024 09:01:09 CDT by Jeremiah Benitez D.O.
[2024-06-02 09:02] LABS: Glucose Point of Care 108 mg/dl (65-105)
--- NOTE | 2024-06-02 09:13 | ED.SYNCOPE ---
HPI - Syncope General Chief Complaint: Syncope Stated Complaint: syncope Time Seen by Provider: 06/02/24 09:07 Source: patient Mode of arrival: wheelchair Limitations: other (Patient does not fully remember incident) History of Present Illness HPI narrative: This is a 48-year-old female that presents to the emergency department after a syncopal episode. 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 She was talking with 1 of her coworkers. She started to feel very lightheaded as if she was going to pass out. She believes her co-worker helped her onto the grass. Reports brief loss of consciousness. Reports currently she feels weird . Otherwise has no complaints. Denies chest pain, shortness of breath, palpitations. Related Data Allergies Allergy/AdvReac Type Severity Reaction Status Date / Time metronidazole Allergy Intermediate Rash Verified 01/26/24 20:21 fluconazole Allergy Unknown Rash Verified 01/26/24 20:21 Penicillins Allergy Unknown Unknown Verified 01/26/24 20:21 shellfish derived Allergy Unknown Verified 01/26/24 20:21 Review of Systems Review of Systems: CONSTITUTIONAL: Denies fever EYES: Denies visual changes, CARDIOVASCULAR: Denies chest pain, palpitations RESPIRATORY: Denies dyspnea. GASTROINTESTINAL: Denies vomiting NEUROLOGIC: Denies numbness, or weakness. All systems reviewed & are unremarkable except as noted in HPI and below PMFSH Past Medical History Medical History (Updated 06/02/24 @ 12:17 by Johana Chicas PA-C) No active medical problems Social History Social History (Updated 06/02/24 @ 09:24 by Johana Chicas PA-C) Smoking status: Never smoker Gender identity (if verbalized by the patient): Female Sexual Orientation (if Verbalized by the Patient): Straight or Heterosexual Exam Narrative: GENERAL: Well-appearing, well-nourished, and in no acute distress. HEAD: Normocephalic, atraumatic. EYES: PERRLA and EOMI. ENT: Nares clear, no rhinorrhea or epistaxis. Mucous membranes moist. Oropharynx without tonsillar hypertrophy exudate or other lesions. Bilateral TMs pearly guan non-bulging NECK: Supple. No adenopathy or masses. CHEST: Clear to auscultation. No respiratory distress. No wheezes rales or rhonchi HEART: Regular rate and rhythm. No murmur heard. Normal peripheral pulses. EXTREMITIES: Normal range of motion. No edema. Strength equal in bilateral upper and lower extremities (5/5) SKIN: Warm, dry, no rash. NEURO: No focal deficits. Alert and oriented x3. Cranial nerves 2-12 grossly intact PSYCH: Normal mood and affect Course Course Emergency Course: Patient updated on workup and agrees with plan of care. Vital Signs Vital signs: Vital Signs Temperature 98.3 F 06/02/24 08:57 Pulse Rate 74 06/02/24 08:57 Respiratory Rate 16 06/02/24 08:57 Blood Pressure 133/80 06/02/24 08:57 Pulse Oximetry 100 06/02/24 08:57 Oxygen Delivery Room Air 06/02/24 08:57 Temperature 97.8 F 06/02/24 10:30 Pulse Rate 91 06/02/24 11:49 Respiratory Rate 22 H 06/02/24 11:49 Blood Pressure 133/75 06/02/24 11:49 Pulse Oximetry 100 06/02/24 11:49 Oxygen Delivery Room Air 06/02/24 08:57 MDM - Syncope MDM Narrative Medical decision making narrative: Patient presents to the emergency department after syncopal episode at work today. She is afebrile and nontoxic appearing. Her vitals are stable. She is neurologically intact. Cbc without leukocytosis. Hemoglobin is normal. Metabolic panel without concerning findings. EKG without concerning changes in baseline troponin is negative. UA without evidence of infection. Chest x-ray without acute cardiopulmonary abnormality. CT brain is normal. A [place] syncope risk score of make her very low risk. Patient is updated on her workup and agrees with plan of care. Ambulating in the ED with a steady gait. She is instructed to follow up with her primary provider. She was given warnings to return to the ER Different
[2024-06-02 09:20] LABS: Basophils Percent Auto 0.6 % (0.2-1.2); Eosinophils Absolute Auto 0.1 K/mm3 (0-0.3); Eosinophils Percent Auto 1.7 % (0-4.4); Hematocrit 37.4 % (37.0-47.0); Hemoglobin 12.4 g/dL (12.0-15.0); Immature Granulocyte Absolute 0.02 K/mm3 (0.00-0.031); Immature Granulocyte Percent A 0.4 % (0-0.5); Lymphocytes Absolute Auto 1.48 K/mm3 (0.9-3.2); Lymphocytes Percent Auto 31.4 % (18.3-44.2); Mean Corpuscular HGB Conc 33.2 g/dl (32-36); Mean Corpuscular Hemoglobin 29.2 pg (26-34); Mean Platelet Volume 10.5 fl (7.4-10.4); Monocytes Absolute Auto 0.3 K/mm3 (0.1-0.6); Monocytes Percent Auto 7.2 % (2.6-8.5); Neutrophils Absolute Auto 2.8 K/mm3 (1.3-6.7); Neutrophils Percent Auto 58.7 % (45.5-73.1); Platelet Count Result 208 k/mm3 (150-375); Red Blood Count 4.25 M/mm3 (4.2-5.4); Red Cell Distribution Width 13.8 % (11.5-14.5); White Blood Count 4.7 K/mm3 (4.5-10.0)
[2024-06-02 09:40] LABS: Alanine Aminotransferase 12 U/L (6-35); Alkaline Phosphatase 57 U/L (38-126); Anion Gap 8 mmol/L (4-12); Aspartate Amino Transferase 18 U/L (14-36); Bilirubin,Total 0.6 mg/dL (0.2-1.3); Blood Urea Nitrogen 8 mg/dL (7-17); Calcium 8.6 mg/dL (8.4-10.2); Carbon Dioxide 25 mmol/L (22-30); Chloride 102 mmol/L (98-107); Creatine Kinase 70 U/L (30-135); Estimated CRCL calculation 105 ml/min; Estimated Glomerular Filt Rate > 60; Glucose 100 mg/dL (65-110); Potassium 3.7 mmol/L (3.4-5.0); Sodium 135 mmol/L (137-145)
[2024-06-02] MEDS: SODIUM CHLORIDE 0.9% IV 1,000 ML 999 ML IV CONT (09:46)
[2024-06-02 09:51] LABS: Troponin I < 0.012 ng/mL (0.000-0.034)
[2024-06-02 10:12] LABS: Appearance Urine Clear (Clear); Bacteria Urine None Seen /hpf; Bilirubin Urine Negative (Negative); Blood Urine 1+ (Negative); Color Urine Yellow (Yellow); Glucose Urine UA Negative (Negative); Ketones Urine Negative (Negative); Leukocyte Esterase Ur Negative LEU/UL (Negative); Nitrate Urine Negative (Negative); Non Pathogenic Casts 0-2; Protein Urine Negative (Negative); RBC Urine 0-2 /hpf (0-2); Specific Grav Ur 1.006 (1.001-1.035); Squamous Epithelial Cell Urine None Seen /hpf (Few); Urobilinogen Urine 0.2 mg/dL (<2.0); WBC Urine 0-5 /hpf (0-3); pH Urine 6.5 (5.0-9.0)
[2024-06-02 10:15] LABS: Add Urine Microscopic? YES
[2024-06-02 10:22] LABS: Benzodiazepines Screen Urine Negative (Negative); Ethanol < 10 mg/dL (<10)
[2024-06-02 10:26] LABS: Amphetamine Screen Urine Negative (Negative); Cannabinoid Screen Urine Negative (Negative)
[2024-06-02 10:46] LABS: Phencyclidine Screen Urine Negative (Negative)
[2024-06-02 10:55] LABS: Barbiturate Screen Urine Negative (Negative)
[2024-06-02 11:01] LABS: Methadone Screen Urine Negative (Negative); Opiate Screen Urine Negative (Negative)
[2024-06-02 11:27] LABS: Cocaine Screen Urine Negative (Negative)
--- NOTE | 2024-06-02 11:45 | PC.NURSE ---
patient ambulated to the bathroom- patient was steady although weak and states feeling off
--- NOTE | 2024-06-02 12:11 | PC.NURSE ---
pt sister (chema) called for an update on the patient, discussed this with the patient who stated that it was okay to discuss treatment and updates with sister chema sister phone number [phone]
[2024-06-02 17:04] LABS: BEDSIDEPREGUCG Negative
== END 2024-06-02 12:50 | disposition home or self-care (01) ==
PROVIDERS: Emergency Medicine; Emergency Provider Physician Assistant; PCP Obstetrics & Gynecology
DX: R55 Syncope and collapse (principal); R94.31 Abnormal electrocardiogram [ECG] [EKG]
CPT/HCPCS: 36415; 70450; 71046; 80053; 80307; 81001; 81025; 82550; 82948; 84484; 85025; 93005; 96360; 96361; 99284; J7030

== ENCOUNTER 2024-09-18 10:35 | Emergency (ER) | payer OTHER, SELFPAY ==
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
[2024-09-18 10:39] VITALS: BP 98/65; PULSE 81; RESP 20; TEMP 36.6; O2SAT 98
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
== END 2024-09-18 13:01 | disposition home or self-care (01) ==
PROVIDERS: Emergency Provider Emergency Medicine
DX: S29.012A Strain of muscle and tendon of back wall of thorax, initial encounter (principal); M19.022 Primary osteoarthritis, left elbow; M47.814 Spondylosis without myelopathy or radiculopathy, thoracic region; V40.5XXA Car driver injured in collision with pedestrian or animal in traffic accident, initial encounter
CPT/HCPCS: 71046; 71100; 72072; 73080; 73110; 99284

== ENCOUNTER 2024-11-28 06:22 | Emergency (ER) | payer OTHER, SELFPAY ==
--- NOTE | ~2024-11-28 | XR_ITS ---
CHEST RADIOGRAPH CLINICAL HISTORY: SOB/COVID . COMPARISON: None available TECHNIQUE: Single portable view of the chest. FINDINGS The cardiomediastinal silhouette is unremarkable. The lungs are clear. Visualized osseous structures and soft tissues are unremarkable. IMPRESSION: No focal infiltrate or effusion. Reviewed, dictated and finalized at location A. [employer]PRES[employer]ATIVE
[2024-11-28 06:32] VITALS: BP 111/71; PULSE 97; RESP 15; TEMP 36.6; O2SAT 96
[2024-11-28 06:38] VITALS: PULSE 92; O2SAT 96
[2024-11-28 06:41] VITALS: O2SAT 97
[2024-11-28 07:42] LABS: Strep Group A RT-PCR NOT DETECTED (Negative)
--- NOTE | 2024-11-28 08:23 | ED.GENADULT ---
HPI - General Adult General Chief complaint: Upper Respiratory Infection Stated complaint: Shortness of breath, COVID +11/22/24 Time Seen by Provider: 11/28/24 06:52 History of Present Illness HPI narrative: 48-year-old female presents to the emergency department for evaluation for ear pain, sinus congestion, shortness of breath and body aches after being diagnosed with COVID. Patient was diagnosed with COVID on Friday but was concerned because she is still having symptoms. Related Data Home Medications ?Medication ?Instructions ?Recorded ?Confirmed ?Last Taken ?Type benzonatate 200 mg capsule mg PO 11/28/24 11/28/24 History Allergies Allergy/AdvReac Type Severity Reaction Status Date / Time metronidazole Allergy Intermediate Rash Verified 11/28/24 06:36 fluconazole Allergy Unknown Rash Verified 11/28/24 06:36 Penicillins Allergy Unknown Unknown Verified 11/28/24 06:36 shellfish derived Allergy Unknown Verified 11/28/24 06:36 Review of Systems Review of Systems: All systems reviewed & are unremarkable except as noted in HPI and below PMFSH Past Medical History Medical History No active medical problems Social History Social History Smoking status: Never smoker Gender identity (if verbalized by the patient): Female Sexual Orientation (if Verbalized by the Patient): Straight or Heterosexual Exam Narrative: APPEARANCE: Well appearing, no pain, no distress, well-nourished. HEAD: normocephalic, atraumatic. Mouth: Multiple fractured teeth with poor dentition EYES: PERRLA/EOMI, conjunctivae clear. NOSE: Normal no drainage EARS: Bilateral TM erythema THROAT: Pharynx clear, no exudate. NECK: Supple. No adenopathy, no masses. RESPIRATORY: Airway patent, respirations nonlabored. Clear to auscultation bilaterally, no rales, rhonchi, wheezing. CARDIOVASCULAR: Regular rate and rhythm without murmurs rubs or gallops. ABDOMINAL: Soft, nontender, nondistended, normal bowel sounds MUSCULOSKELETAL: Moves all extremities. Strength/ROM intact, No edema, No calf tenderness. NEURO: Alert. Cranial nerves II through XII intact. Good gait. Good coordination SKIN: Warm, dry. Normal Color Course Vital Signs Vital signs: Vital Signs Temperature 97.8 F 11/28/24 06:32 Pulse Rate 97 11/28/24 06:32 Respiratory Rate 15 11/28/24 06:32 Blood Pressure 111/71 11/28/24 06:32 Pulse Oximetry 96 11/28/24 06:32 Oxygen Delivery Room Air 11/28/24 06:32 Temperature 97.9 F 11/28/24 09:33 Pulse Rate 76 11/28/24 09:33 Respiratory Rate 16 11/28/24 09:33 Blood Pressure 118/68 11/28/24 09:33 Pulse Oximetry 100 11/28/24 09:33 Oxygen Delivery Room Air 11/28/24 06:41 Medical Decision Making MDM Narrative Medical decision making narrative: 48-year-old female presents to the emergency department for evaluation sinus pressure and ear pain. Patient was started on Augmentin in the emergency department for suspected otitis media and patient will be provided medication for pain control. Differential Diagnosis Differential Diagnosis: Abscess, dental fractures, dental caries, gingivitis Vital Signs Vital Signs: Vital Signs Temperature 97.8 F 11/28/24 06:32 Pulse Rate 97 11/28/24 06:32 Respiratory Rate 15 11/28/24 06:32 Blood Pressure 111/71 11/28/24 06:32 Pulse Oximetry 96 11/28/24 06:32 Oxygen Delivery Room Air 11/28/24 06:32 Temperature 97.9 F 11/28/24 09:33 Pulse Rate 76 11/28/24 09:33 Respiratory Rate 16 11/28/24 09:33 Blood Pressure 118/68 11/28/24 09:33 Pulse Oximetry 100 11/28/24 09:33 Oxygen Delivery Room Air 11/28/24 06:41 Lab Data Lab results reviewed: Yes I reviewed the patient's lab results. Labs: Lab Results 11/28/24 Range/Units 06:49 Group A Strep (PCR) Not detected (Negative) Discharge Plan Discharge Clinical Impression: COVID, Otitis media Patient Disposition: Home, Self-Care Condition: Stable Instructions: Antibiotic Form, Ear Infection (ED), Viral Syndrome (ED) Additional Instructions: Antibiotic as directed until completed. Tylenol for pain control. For additional pain control replace the Tylenol with [place]. Do not take Tylenol and [place] at the same time as both contain acetaminophen. Have close follow-up with your primary care physician. Drink plenty of fluids. Patient Language: Hebrew Prescriptions: New benzonatate 100 mg capsule 100 mg PO TID PRN (Reason: cough) Qty: 14 0RF albuterol sulfate 90 mcg/actuation HFA aerosol inhaler 1 puff inhalation QID Qty: 6.7 0RF amoxicillin-pot clavulanate 875-125 mg tablet 1 tablet PO Q12H 7 Days Qty: 14 0RF No Action benzonatate 200 mg capsule PO Follow-up/Referrals: PHYSICIAN NOT ON STAFF,NONSTAFF [Primary Care Provider] -
[2024-11-28] MEDS: HYDROcodone/acetaminophen (*CRX) 5-325 MG TABLET 1 TAB PO (08:37)
[2024-11-28] MEDS: AMOXICILLIN/CLAVULANATE K 875-125 MG TAB 1 TABLET PO (08:37)
[2024-11-28] MEDS: ONDANSETRON HCL ODT 4 MG TABLET PO (08:37)
[2024-11-28] MEDS: ALBUTEROL SULFATE NEB 2.5 MG/3 ML INH INHALATION (08:45)
[2024-11-28 08:47] VITALS: PULSE 78; RESP 18
[2024-11-28 08:53] VITALS: PULSE 74; RESP 18
[2024-11-28 09:33] VITALS: BP 118/68; PULSE 76; RESP 16; TEMP 36.6; O2SAT 100
--- OUTSIDE RECORDS SUMMARY | 2024-12-02 09:56 | XMS_ITS | Clinical Summary ---
Author Organization [facility] [employer] Address [address] [place] [address] Care Team Providers Care Cytogenetic Technologist Name Role Phone Unavailable Primary Care Provider Unavailabl e Source Comments [facility],non-owned Affiliates and Associated Physician Practices is amultiple site organization consisting of ambulatory clinics and hospital sitesin [place], [place], [place] and [place]. This disclosure is being madepursuant to the Care Everywhere program and may not contain all information available regarding this patient. Last updated 18.[facility] [employer] Social History Tobacco Use Types Packs/Day Years Used Date Smoking Tobacco: Never Assessed Sex and Gender Information Value Date Recorded Sex Assigned at Not on file Gender Identity Not on file Sexual Orientation Not on file Plan of Treatment Health Maintenance Due Date Last Done Comments COLOGUARD (AGES 45-75) - COL ON CA SCREENING 1973 COLON MONITORING 1973 COLONOSCOPY - COLON CA SCREENING 1973 CT COLONOGRAPHY - COLON CA SCREENING 1973 Colorectal Cancer Screening 1973 FIT - COLON CA SCREENING 1973 FLEX SIG - COLON CA SCREENING 1973 LIPID TESTING 1973 MAMMOGRAM 1973 PAP SMEAR 1973 HIV SCREENING 1988 HEPATITIS C SCREENING 12/19/1991 DTAP/TDAP/TD VACCINES (1 - Tdap) 1992 HEPATITIS B VACCINE (1 of 3 - 19+ 3-dose series) 1992 PNEUMOCOCCAL VACCINE 50+ (1 of 1 - PCV) 2023 ZOSTER VACCINE (1 of 2) 2023 COVID-19 VACCINE (1 - 2023-2 5 season) 2024 INFLUENZA VACCINE (#1) 2024 DEPRESSION SCREENING 11/10/2024 HIB VACCINE Aged Out No longer eligi ble based on patient's age to complete this topic HPV VACCINE Aged Out No longer eligi ble based on patient's age to complete this topic MENINGOCOCCAL (Group B) VACCINE Aged Out No longer eligible based on patient's age to complete this topic MENINGOCOCCAL VACCINE Aged Out No isaías alea eligible based on patient's age to complete this topic PNEUMOCOCCAL VACCINE Aged Out No long er eligible based on patient's age to complete this topic
--- OUTSIDE RECORDS SUMMARY | 2024-12-02 09:56 | XMS_ITS | Referral Summary ---
Author Organization [facility] Address [address] [place] [address] Care Team Providers Care Entry Level Accounting Clerk Name Role Phone Desiree Moody MD Primary Care Provider [phone] Romel Marrero MD Unavailable [phone] Vladislav Nieves MD Unavailable [phone] Nakul Fisher MD Unavailable [phone] Juan Noyola MD Unavailable [phone] Dylan Christine DPM Unavailable [phone] Encounters Date Type Department Care Team Description 11/24/2024 11:15 AM SUSTAINABLE DEVELOPMENT POLICY ANALYST Telemedicine [address] [phone] Chayo Osborne NP COVID-19 (Primary Dx) 11/24/2024 Nurse Triage [facility] Primary Care [address] [place] [phone] Desiree Moody MD 11/01/2024 4:45 PM SUSTAINABLE DEVELOPMENT POLICY ANALYST Office Visit [facility] Care at [address] [phone] Joanie Vasquez NP Onychomycosis (Primary Dx) 10/11/2024 4:32 PM SUSTAINABLE DEVELOPMENT POLICY ANALYST - 10/11/2024 11:59 PM SUSTAINABLE DEVELOPMENT POLICY ANALYST Hospital [facility] [address] [place] [address] Nontoxic single thyroid nodule Discharge Disposition: Discharge to home or self care 09/06/2024 8:16 AM CDT - 09/06/2024 11:59 PM CDT Hospital Encounter [facility] [address] [place] [address] Lumbar pain Discharge Disposition: Discharge to home or self care 09/06/2024 8:30 AM CDT Office Visit [facility] Orthopedics and Sports Medicine [facility] [address] [place] [phone] Christine Goetz, VALDEZ Chronic bilateral low back pain with right-sided sciatica; Lumbar facet arthropathy, moderate inferior; Retrolisthesis of lumbar vertebrae,mild L5 on S1; It band syndrome, right; Myalgia, other site from Last 3 Months Allergies Active Allergy Reactions Criticality Noted Date Comments Metronidazole Hives Medium 06/16/2019 Nsaids (Non-Steroidal Anti-Inflammatory Drug) Stomach upset Low 11/17/2016 GI upset Penicillins Rash Medium 11/17/2016 Reaction: Rash, ?? Rash Shrimp Rash Medium 03/18/2019 rash, swelling Medications valACYclovir (VALTREX) 500 mg tabletIndications :HSV (herpes simplex virus) anogenital infection Take 1 tablet (500 mg total) by mouth daily as needed (outbreak) 30 tablet 2 0 Active cetirizine (ZyrTEC) 10 mg tabletIndications :Wasp sting, accidental or unintentional, initial encounter Take 1 tablet (10 mg total) by mouth daily 30 tablet 4 025 Active EPINEPHrine 0.3 mg/0.3 mL auto-injection syringeIndication s:Anaphylaxis Inject 0.3 mL (0.3 mg total) into the muscle as instructed as needed for anaphylaxis Call 911 after use. 1 each 1 4 025 Active albuterol HFA (PROVENTIL HFA,VENTOLIN HFA,PROAIR HFA) 90 mcg/actuation inhalerIndication s:Acute Asthma Attack Inhale 2 puffs every 4 (four) hours as needed for wheezing 6.7 g 3 4 Active methocarbamoL (ROBAXIN) 500 mg tabletIndications :Chronic bilateral low back pain with right-sided sciatica Take 1 tablet (500 mg total) by mouth nightly as needed for muscle spasms 30 tablet 4 Active efinaconazole 10 % solution with applicatorIndicat ions:toenail onychomycosis Apply 1 Application topically daily 8 mL 4 Active Active Problems Problem Noted Date Diagnosed Date Allergy to shellfish 07/19/2024 Assessment & Plan (07/19/2024 7:59 AM CDT): EpiPen prescription provided Acute pain of right knee 07/19/2024 Assessment & Plan (07/19/2024 8:03 AM CDT): New problem, over 3 wks now, nki Affecting her gait, limping Worse when sits too long and tries to get up it catches her step due to pain Prob has a meniscus tear or early stages of arthritis Xray R knee Family history of colon cancer in mother 024 Overview (07/19/2024): Colonoscopy 11/2023 Dr Noyola, due q 5 yrs Assessment & Plan (07/19/2024 8:18 AM CDT): Under care of GI Get colonoscopy q 5 yr intervals Recurrent herpes simplex 07/19/2024 Assessment & Plan (07/19/2024 8:24 AM CDT): Gets oral sores, rectal sores and genital sores, flares up intermittently Cont valacyclovir daily for suppression Family history of breast cancer in mother 2023 Assessment & Plan (07/19/2024 8:17 AM CDT): At risk for breast cancer Cont annual mammogram screenings 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 Work on wt loss Assessment & Plan (04/12/2024 5:16 PM CDT): At risk for breast cancer Work on wt loss Diverticulitis of colon 08/26/2023 Overview (08/26/2023): 06/2012 flare up, Dr Dennys DAY 08/19/2023 flare up, in ER, CT confirmed, did ff up with Dr Noyola Assessment & Plan (08/26/2023 10:34 AM CDT): 2011 flare up, Dr Dennys DAY 08/19/2023 flare up, in ER, CT confirmed, did ff up with Dr Noyola Diverticulosis diet: find triggers prob corn and maybe peanuts/nuts Keep bowels moving, daily metamucil, hydration and dulcolax 2 tabs tonight (oxycodone constipated her) Change avelox to levaquin instead due to persistent pain and for better coverage ER if sx worsens, high fever, worsening abd pains Thyroid nodule 07/24/2023 Overview (07/24/2023): US: Right lobe demonstrates a 1.9 cm nodule with biopsy suggested per guidelines. Acute bilateral low back pain without sciatica 0 03/11/2023 Assessment & Plan (03/11/2023 4:32 PM CDT): Likely musculoskeletal related to viral illness/coughing Can use tylenol per package instructions, heating pad, lidocaine patches, rest Follow up with PCP for persisting symptoms If severe back pain, loss of bowel or bladder, high fever, numbness or weakness go to ER Moderate episode of recurrent major depressive d isorder 12/31/2022 Overview (07/10/2023): 12/31/22 PHQ 9 - 9, GAD7 - 15, started lexapro 10mg and counseling with Yumiko Pelayo 01/29/23 PHQ 9 - 9, GAD7 - 6 04/25/2023 PHQ9 - 14, GAD7 - 15 07/10/2023 PHQ9 - 11, GAD7 8 on lexapro 10 mg Assessment & Plan (07/19/2024 8:32 AM CDT): Due to her job situation Had been on lexapro therapy, no longer needing Return to counseling, did help Assessment & Plan (07/10/2023 8:29 AM CDT): Job still a problem, at risk for losing her job Cont lexapro 10 mg daily, remember to take daily 12/31/22 PHQ 9 - 9, GAD7 - 15, started lexapro 10mg and counseling with Yumiko Pelayo 01/29/23 PHQ 9 - 9, GAD7 - 6 04/25/2023 PHQ9 - 14, GAD7 - 15 07/10/2023 PHQ9 - 11, GAD7 8 on lexapro 10 mg Assessment & Plan (04/25/2023 10:40 AM CDT): Worsening 04/25/2023 PHQ9 - 14, GAD7 - 15 Scores were 9 and 6 respectively 3 mos ago despite lexapro 10mg and counseling, patient stopped taking 3 wks ago Recommend psychiatry to manage Start back on lexapro 10 mg daily, patient stopped taking it Assessment & Plan (03/18/2023 4:19 PM CDT): Worsening sx Already with counselor Yumiko Pelayo Had to stop the rx Lexapro with recent viral illness Just restarted the rx Lexapro at 10mg daily When was taking lexapro was tolerating Take rx lexapro in AM Assessment & Plan (01/29/2023 12:02 PM CDT): 12/31/22 PHQ 9 - 9, GAD7 - 15, started lexapro 10mg and counseling with Yumiko Pelayo 01/29/23 PHQ 9 - 9, GAD7 - 6 Take the lexapro daily, take with food Needs more motivation Cont counseling depression is not worse but not better Assessment & Plan (12/31/2022 10:47 AM SUSTAINABLE DEVELOPMENT POLICY ANALYST): Moderate depression Refer to a counselor Check thyroid Start lexapro 10 mg VIET (generalized anxiety disorder) 12/31/2022 Overview (07/10/2023): 12/31/22 PHQ 9 - 9, VIET - 15 01/28/23 PHQ 9, VIET - 6 03/18/23 PHQ 10, VIET - 13 04/25/2023 PHQ9 - 14, GAD7 - 15 07/10/2023 PHQ9 - 11, GAD7 8 on lexapro 10 mg Assessment & Plan (07/10/2023 8:29 AM CDT): Job still a problem, at risk for losing her job Cont lexapro 10 mg daily, remember to take daily 12/31/22 PHQ 9 - 9, GAD7 - 15, started lexapro 10mg and counseling with Yumiko Pelayo 01/29/23 PHQ 9 - 9, GAD7 - 6 04/25/2023 PHQ9 - 14, GAD7 - 15 07/10/2023 PHQ9 - 11, GAD7 8 on lexapro 10 mg Assessment & Plan (04/25/2023 10:41 AM CDT): Worsening 04/25/2023 PHQ9 - 14, GAD7 - 15 Scores were 10 and 13, respectively Despite counseling with Yumiko Pelayo and lexapro therapy but quit taking 3 wks ago Start back on lexapro 10 mg daily, patient stopped taking it Refer to psychiatry to manage Assessment & Plan (03/18/2023 4:20 PM CDT): VIET score is up to 13 again but was at 6 But had to hold the rx lexapro during viral illness Cont under counselor Yumiko Pelayo Just restarted lexapro yesterday Wait another 4 wks before we make a dose adjustment Assessment & Plan (01/29/2023 12:02 PM CDT): 12/31/22 PHQ 9 - 9, GAD7 - 15, started lexapro 10mg and counseling with Yumiko Pelayo 01/29/23 PHQ 9 - 9, GAD7 - 6 Anxiety is better Cont rx lexapro but take daily Cont counseling Assessment & Plan (12/31/2022 10:43 AM SUSTAINABLE DEVELOPMENT POLICY ANALYST): Check TSH and free T4 Start lexapro 10 mg daily To relax her and think clearly Refer to counselor Brooke Melendez Pain of both breasts 11/15/2022 Assessment & Plan (04/12/2024 4:52 PM CDT): Bilateral New, worsening over the past 2 wks Mammogram done 02/2023 Prob FBD Start evening primrose oil for breast pain 1000 mg bid Avoid underwire bra Sense of smell altered 07/09/2022 Overview (12/31/2022): Altered taste as well Not covid related Since 12/2019 Hx of benigh mass removed nasal passage Dr Erick Gifford in 12/2020 Assessment & Plan (07/09/2022 8:22 AM CDT): Permanent Learn to live with it Altered taste as well Not covid related Since 12/2019 Hx of benigh mas removed nasal passage Dr Erick Gifford in 12/2020 Altered taste 07/09/2022 Overview (07/09/2022): Altered smell as well Not covid related Since 12/2019 Hx of benigh mas removed nasal passage Dr Erick Gifford in 12/2020 Assessment & Plan (07/09/2022 8:22 AM CDT): Permanent Learn to adjust Altered taste and smell as well Not covid related Since 12/2019 Hx of benigh mas removed nasal passage Dr Erick Gifford in 12/2020 Class 1 obesity due to exces s calories without serious comorbidity with body mass index (BMI) of 34.0 to 34.9 in adult 07/05/2021 Assessment & Plan (07/19/2024 8:14 AM CDT): Work on wt loss Due to wait at risk for complications from most illnesses Assessment & Plan (11/05/2023 2:23 PM SUSTAINABLE DEVELOPMENT POLICY ANALYST): Work on wt loss Due to wait at risk for complications from most illnesses Assessment & Plan (08/26/2023 10:24 AM CDT): Work on wt loss Find time to exercise Eat healthy Assessment & Plan (07/10/2023 8:26 AM CDT): Work on wt loss Find time to exercise Eat healthy Assessment & Plan (04/25/2023 10:28 AM CDT): Wt is up Work out regularly to decrease wt and to increase natural endorphins and elevate mood Assessment & Plan (03/18/2023 4:09 PM CDT): Work on attempts to lose weight about 1 lb a week. Join a wt loss program if necessary. Try to reach for BMI under 30. Exercise regularly, Limit carbs and sugars. Control portion intake. Consume 6-8 8oz glasses of water daily. BMI Follow-up includes: nutrition counseling, exercise counseling and education provided. Assessment & Plan (07/09/2022 8:19 AM CDT): Work on wt loss Exercise regulary Altered taste and smell should help her lose weight Assessment & Plan (07/05/2021 8:32 AM CDT): Work on wt loss, exercise regularly Get BMI under 30 Primary narcolepsy without cataplexy 02/07/2021 Psychophysiological insomnia 02/07/2021 Anxiety 02/07/2021 Teeth grinding 02/07/2021 Nonsmoker 02/07/2021 Anosmia 06/22/2020 Assessment & Plan (06/22/2020 2:51 PM CDT): Had IgG test for Covid this was negative Patient had high IgE on her allergy work-up in 2018 Given her asthma history, this seasons allergens I highly suspect her symptoms are related to this and needs to use the medications prescribed Annual physical exam 06/16/2019 Assessment & Plan (07/19/2024 8:14 AM CDT): Reviewed previous labs and diagnostic test results. Chronic medical problems evaluated and management plans discussed with the patient. Prescription medications, supplements, vitamins and immunizations reviewed. Wear seatbelts. Use sunscreen. Discussed healthy diet and disease prevention. Recommend moving towards a plant based diet. Discussed importance of scheduling recommended screening tests. Discussed importance of regular physical examinations for health maintenance. Assessment & Plan (07/10/2023 8:26 AM CDT): Reviewed previous labs and diagnostic test results. Chronic medical problems evaluated and management plans discussed with the patient. Prescription medications, supplements, vitamins and immunizations reviewed. Wear seatbelts. Use sunscreen. Discussed healthy diet and disease prevention. Recommend moving towards a plant based diet. Discussed importance of scheduling recommended screening tests. Discussed importance of regular physical examinations for health maintenance. Assessment & Plan (07/09/2022 8:29 AM CDT): Wear sunscreen with SPF over 50 while outdoors. Wear sun protective head wear and clothing if planning to stay outdoors exposed to the direct sunlight for extended hours. Wear seatbelts while in a vehicle. Do not TEXT and DRIVE Do not DRINK and DRIVE. Drink responsibly Follow a heart healthy diet and lifestyle. Consume 5-7 servings of fruits and vegetables a day.. Such as the Mediterranean Diet. Maintain/attain normal body weight. Exercise regularly, minimum 20 mins 3 days a week to reduce cardiovascular healthy. Maintain good sleep schedule and sleep habits I recommend that all patients follow a diet that is high in fruits and vegetables and low in processed foods such as sugar and foods that are made with white flour. I recommend using beneficial fats such as olive oil, nuts, seeds and berries and avoiding saturated animal fats. Please stay physically active to the extent that you are physically able to. Test results: if you have not received communication about test results within 7 days of the test being performed, please contact the office. I strongly encourage [employer] sign ups. It can facilitate communication flow. Please contact the office for instructions on signing up. Assessment & Plan (07/05/2021 8:16 AM CDT): Reviewed previous labs and diagnostic test results. Chronic medical problems evaluated and management plans discussed with the patient. Prescription medications, supplements, vitamins and immunizations reviewed. Wear seatbelts. Use sunscreen. Discussed healthy diet and disease prevention. Recommend moving towards a plant based diet. Discussed importance of scheduling recommended screening tests. Discussed importance of regular physical examinations for health maintenance. Discussed importance of a living will, advanced directives and establishing or updating healthcare power of contracts attorney document and providing our office with a copy. Assessment & Plan (06/16/2019 10:12 AM CDT): Labs due soon: cbc, cmp, lipids, tsh, a1c, hep c ab screen, hiv ab screen, ua Wear sunscreen while outdoors. Wear seatbelts while in a vehicle. Do not text and drive. Follow a heart healthy diet and lifestyle. Consume 5-7 servings of fruits and vegetables a day. Maintain/attain normal body weight. Maintain good sleep schedule and sleep habits. MONIQUE on CPAP 08/10/2018 Overview (03/18/2019): Patient underwent sleep study. Started on CPAP 10 CM H2O Assessment & Plan (12/31/2022 10:46 AM SUSTAINABLE DEVELOPMENT POLICY ANALYST): Compliance poor Start using CPAP more regularlyl Clean tubing regularly Assessment & Plan (07/05/2021 8:33 AM CDT): Cont to use the CPAP nightly. Assessment & Plan (06/16/2019 10:04 AM CDT): Cont to use the CPAP nightly. Laryngopharyngeal reflux 08/10/2018 Non-seasonal allergic rhinitis due to pollen 11/2017 Assessment & Plan (03/18/2023 4:24 PM CDT): Has an epi pen Does not take daily antihistamine, recommend Does not use flonase, but is supposed to, encouraged to keep allergies controlled Recommend she do both of these and it would likely help her symptoms of no smell Use zyrtec nightly Assessment & Plan (07/05/2021 8:35 AM CDT): Needs an epi pen Does not take daily antihistamine, recommend Does not use flonase, but is supposed to, encouraged to keep allergies controlled Recommend she do both of these and it would likely help her symptoms of no smell Assessment & Plan (06/22/2020 2:50 PM CDT): Does not take daily antihistamine Does not use flonase Recommend she do both of these and it would likely help her symptoms of no smell Cough variant asthma 06/09/2018 Overview (07/19/2024): Intermittent, allergy induced, season Causes dry cough Assessment & Plan (07/19/2024 7:36 AM CDT): Intermittent, allergies, seasonal Likely the cause of her intermittent dry cough. Continue Zyrtec p.r.n. allergies Continue albuterol rescue inhaler p.r.n. Recommend annual flu vaccine Assessment & Plan (03/18/2023 4:24 PM CDT): Does not take her inhaler much Cont zyrtec otc during springtime nightly stable Assessment & Plan (07/05/2021 8:35 AM CDT): Does not take her inhaler much stable Assessment & Plan (06/22/2020 2:49 PM CDT): Does not take her inhaler much stable History of giardia infection 06/19/2016 Fecal incontinence 06/19/2016 Overview (03/18/2019): since childbirth Sickle cell trait ([facility]) 03/26/2016 Assessment & Plan (07/19/2024 7:36 AM CDT): Up-to-date on pneumonia vaccine No recent flare-ups Stable Assessment & Plan (07/09/2022 8:33 AM CDT): prevnar 20 today Assessment & Plan (07/05/2021 8:33 AM CDT): Reports she was told having this as a child We will check CBC Assessment & Plan (06/22/2020 2:52 PM CDT): Reports she was told having this as a child We will check CBC Pulmonary nodule 03/26/2016 Overview (03/18/2019): Right middle lobe IBS (irritable bowel syndrome) 03/26/2016 Assessment & Plan (07/05/2021 8:34 AM CDT): Stress induced Certain food triggers Identify food sources and avoid triggers HSV (herpes simplex virus) anogenital infection 03/26/2016 Diverticulosis 03/26/2016 Overview (08/26/2023): Colonoscopy Dr Noyola 02/26/2021 normal, internal hemorrhoids, repeat 10 yrs 06/2012 flare up, in ER, Dr Noyola GI 08/19/2023 flare up, in ER, CT confirmed, did ff up with Dr Noyola Trigger: ? Wayne, nuts Ovarian cyst 03/26/2016 Resolved Problems Problem Noted Date Diagnosed Date Resolved Date Viral URI 11/05/2023 07/19/2024 Assessment & Plan (02/04/2024 9:03 AM CDT): Improving. She is encouraged to continue to take cough medication as directed as needed. She can continue prednisone if SOB ongoing. She should finish doxycycline as directed. Dayquil or Nyquil for multi-symptom relief Cough: Mucinex and throat lozenges, as well as adequate hydration. Runny nose, sneezing, congestion: Antihistamines like zyrtec, claritan, garrison, or nighttime benadryl can help dry up secretions. Avoid medications with the D like garrison-D if you have high blood pressure Nasal rinses with a neti-pot or saline can help thin secretions. Flonase or Nasacort to help reduce inflammation in your sinuses. This can be used once daily, but caution if you have glaucoma. Sore Throat Chloraseptic sprays, throat lozenges, and adequate hydration are the most helpful. Body Aches/Fevers/Pain Tylenol 1000mg three times daily or Ibuprofen 200mg to 400mg three times daily are okay as long as you have not been instructed to avoid NSAID medications Try to get 60-90 ounces of liquid in per day, specifically water. If struggling to drink, it is okay to add gatorade, powerade, propel, body armour, or pedialyte for hydration. Assessment & Plan (11/05/2023 2:36 PM SUSTAINABLE DEVELOPMENT POLICY ANALYST): Prob covid as well since son is positive today Tested negative today for covid flu a and flu b But covid test can be negative initially, early into illness, recommend re testing again in 2-3 d if symptoms worsen Get plenty of rest and hydrate well Get to the ER if symptoms worsen Remain off work today and for next few days Rtw on Nov 11, 2023 Presume covid positive, isolate and mask Dizziness 2022 04/25/2023 Upper respiratory tract infection 10/22/2022 04/25/2023 Assessment & Plan (03/11/2023 4:30 PM CDT): Rapid covid and flu negative, PCR pending Tessalon prn for cough Medrol pack Tylenol for aches, pains. Take per package directions Antihistamines like Claritin or Zyrtec as needed for drainage. Take per package directions Delsym (cough suppressant) and Mucinex (cough expectorant) as needed for coughing. Follow package directions Frequent cough drops and lozenges Flonase, 2 sprays each nostril daily Avoid spreading the virus by remaining at home and away from others until you are fever-free (temperature below 100) for 24 hours. Good handwashing and covering your mouth when coughing are also important. If you are not improving or worsening in the next 5-7 days you must RETURN to the clinic, go to your PCP, or Urgent Care/ER to be SEEN and reevaluated. No further prescriptions or refills will be given by phone without another evaluation. If you develop a high fever 103+, neck stiffness, trouble breathing, chest pain, or other life threatening symptoms GO TO THE ER IMMEDIATELY. Assessment & Plan (10/22/2022 2:00 PM SUSTAINABLE DEVELOPMENT POLICY ANALYST): Rapid covid and flu negative PCR pending Benzonatate 100 mg up to three times daily for cough Nasal saline or flonase daily -Tylenol or Ibuprofen for aches, pains. Take per package directions -Antihistamines like Claritin or Benadryl as needed for drainage. Take per package directions -Frequent cough drops and lozenges -Increase fluids, especially decaffeinated ones -Sleep with head of bed raised to promote drainage -Flonase to promote drainage -Avoid spreading the virus by remaining at home and away from others until you are fever-free (temperature below 100) for 24 hours. Good handwashing and covering your mouth when coughing are also important. If you are not improving or worsening in the next 5-7 days you must RETURN to the clinic, go to your PCP, or Urgent Care/ER to be SEEN and reevaluated. No further prescriptions or refills will be given by phone without another evaluation. If you develop a high fever 103+, neck stiffness, trouble breathing, chest pain, or other life threatening symptoms GO TO THE ER IMMEDIATELY. Acute non-recurrent maxillary sinusitis 01/07/2022 07/09/2022 Assessment & Plan (01/07/2022 2:07 PM SUSTAINABLE DEVELOPMENT POLICY ANALYST): Cont doxycline, refill if needed Add flonase ns Add prednisone Cont Inhaler Cont tessalon perles Nasal saline every four hours over the counter, prescriptions sent to pharmacy, may use over the counter allergy or sinus medication, Maintain adequate fluid intake. May use [id number] acetaminophen or ibuprofen. Medication instructions were provided to the patient. The risks and benefits of the treatment plan were discussed with the patient. Signs and symptoms of emergency were discussed with the patient. Minimize close contact with other individuals. Nasal mass 12/18/2020 07/09/2022 Acute pancreatitis 03/26/2016 9 Immunizations Name Administration Dates Next Due DTP 08/23/1987, 7,10/17/1978,10/17,10/12/1974,10/12/1974,06/23/1974 ,06/23/1974 Influenza, Quadrivalent, Spl it, Preservative Free, Intramuscular 12/31/2022,07/22/2019,07/22/2019,09/08 Influenza, Trivalent, IM (MDV) 08/09/2021 Influenza, Unspecified 10/10/2023(Deferr ed: Patient Refused),09/10/2023(Deferred: Patient Refused) MMR 09/17/1978,09/17/1978 OPV 09/17/1978, 8,10/12/1974,10/12,06/23/1974,06/23/1974 Pneumococcal Conjugate Pcv20 07/09/2022 Tdap 07/05/2021,11/20/2009 Social History Tobacco Use Types Packs/Day Years Used Date Smoking Tobacco: Never Smokeless Tobacco: Never Tobacco Cessation:Counseling Given: Not Answered Alcohol Use Standard Drinks/Week Comments Not Currently 0 (1 standard drink = 0.6 oz pur e alcohol) AUDIT-C Answer Date Recorded Frequency of Alcohol Consumption Not on file 02/04/2024 Q2: How many drinks containi ng alcohol do you have on a typical day when you are drinking? Patient does not drink Frequency of Binge Drinking Not on file 01/09 PHQ-2 Answer Date Recorded PHQ-2 Total Score (If total score is 3 or more points, staff should administer the PHQ-9) 3 07/19/2024 Personal Safety Answer Date Recorded Have you ever been in or are you currently in a harmful physical or emotional relationship or is someone making you feel afraid or unsafe? 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 Not on file Not on file [employer] Not on file Not on file N ot on file Last Filed Vital Signs Vital Sign Reading Time Taken Comments Blood Pressure 118/83 11/01/2024 4:53 PM SUSTAINABLE DEVELOPMENT POLICY ANALYST Pulse 100 11/01/2024 4:53 PM SUSTAINABLE DEVELOPMENT POLICY ANALYST Temperature 36.8 ??C (98.2 ??F) 11/01/2024 4:53 PM CS T Respiratory Rate 20 11/01/2024 4:53 PM SUSTAINABLE DEVELOPMENT POLICY ANALYST Oxygen Saturation 98% 11/01/2024 4:53 PM SUSTAINABLE DEVELOPMENT POLICY ANALYST Inhaled Oxygen Concentration - - Weight 92.5 kg (204 lb) 11/01/2024 4:53 PM SUSTAINABLE DEVELOPMENT POLICY ANALYST Height 162.6 cm (5' 4 ) 09/06/2024 8:27 AM CDT Body Mass Index 35.02 09/06/2024 8:27 AM CDT Plan of Treatment Not on file Procedures Procedure Name Priority Date/Time Associated Diagnosis Comments US THYROID Schedule Routine, Read Routine (OP Routine) 10/11/2024 5:15 PM SUSTAINABLE DEVELOPMENT POLICY ANALYST Nontoxic single thyroid nodule CT INJECTION SINGLE/INVOICING MACHINE OPERATOR TRIGGER POINT 1/2 MUSCLES Routine 09/06/2024 8:30 AM CDT Myalgia, other site XR SPINE LUMBAR W BENDING 6 OR MORE VIEWS Schedule Routine, Read Routine (OP Routine) 09/06/2024 8:26 AM CDT Lumbar pain DIAGNOSTIC MAMMOGRAM BILATERAL W HOMER Schedule Routine, Read Routine (OP Routine) 06/10/2024 2:07 PM CDT Pain of both breasts HM COLONOSCOPY Routine 03/22/2022 HEPATITIS C ANTIBODY Routine 07/13/2021 12:28 PM CDT Encounter for hepatitis C screening test for low risk patient HM PAP SMEAR WITH HPV Routine 12/29/2018 from Last 3 Months or Most Recently Relevant to Health Maintenance Results * US Thyroid (10/11/2024 5:15 PM SUSTAINABLE DEVELOPMENT POLICY ANALYST) Anatomical Region Laterality Modality Head and Neck N/A Ultrasound 10/13/2024 9:55 AM SUSTAINABLE DEVELOPMENT POLICY ANALYST Narrative 10/13/2024 9:59 AM SUSTAINABLE DEVELOPMENT POLICY ANALYST EXAM DESCRIPTION: ?? US THYROID REASON FOR STUDY: ?? Nontoxic single thyroid nodule TECHNIQUE: Ultrasound of the thyroid was performed with grayscale and color doppler. COMPARISON: Ultrasound dated July 22, 2023. FINDINGS: RIGHT: The right thyroid lobe measures ??5.5 x 2.6 x 2.0 ??cm. ??The right thyroid lobe is normal in echotexture. Within the superior aspect of the right lobe of the thyroid there is a solid hypoechoic nodule that is wider than tall with smooth margins without concerning calcifications measuring a maximum of 0.7 x 0.5 x 0.5 cm (previously 0.7 cm). ??TIRADS 4, unchanged. A similar appearing nodule is present within the interpolar region measuring maximum of 0.7 cm, stable. ??TIRADS 4. A 3rd lesion within the inferior pole posteriorly seen measuring maximum of 1.1 x 1.4 x 0.9 cm (previously 1.9 x 1.1 x 1.1 cm). ??TIRADS 4. ??This is status post FNA. LEFT: The left thyroid lobe measures ??5.4 x 2.1 x 1.9 ??cm. ??The left thyroid lobe is normal in echotexture. In the interpolar region there is a solid hypoechoic nodule that is wider than tall with smooth margins without concerning calcifications measuring maximum of 0.6 x 0.5 x 0.5 cm, stable. ??TIRADS 4. ??No new thyroid nodules are seen. ISTHMUS: The isthmus measures ??0.3 cm ??in AP dimension. ??The isthmus is normal in echotexture. VASCULARITY: ??Normal. OTHER: ??No other significant finding. IMPRESSION: 1. ?? Bilateral thyroid nodules as above, stable. ??Follow-up as per guidelines below. ACR TI-RADS Risk Category: ??TIRADS 4 REFERENCE: According to the ACR Thyroid Imaging, Reporting and Data System (TI-RADS): White Paper of the ACR TI-RADS Committee Mar, 2017 recommendations regarding the management of thyroid nodules are as follows: 1. ?? TI-RADS 1: Risk of malignancy <2%, no FNA or follow up required. 2. ?? TI-RADS 2: Risk of malignancy <2%, no FNA or follow up required. 3. ?? TI-RADS 3: Risk of malignancy 2%-5%. Nodules 1.5 cm or greater follow up at 1, 3 and 5 years recommended, for nodules 2.5 cm or greater FNA recommended. 4. ?? TI-RADS 4: Risk of malignancy 5%-20% Nodules 1.0 cm or greater follow up at 1, 2, 3 and 5 years recommended, for nodules 1.5 cm or greater FNA recommended 5. ?? TI-RADS 5: Risk of malignancy >20%. Nodules 0.5 cm or greater annual follow up for 5 years recommended, for nodules 1.0 cm or greater FNA recommended. The ACT TI-RADS committee recommends targeting no more than two nodules for FNA. ??If three or more nodules meet criteria for FNA, the two with the most suspicious appearance based on ACR TI-RADS points should be sampled. THIS IS AN ELECTRONICALLY VERIFIED FINAL REPORT 10/13/2024 9:59 AM - Electronically signed by ??Fuad Pandey M.D. JA: WADE D: ??10/13/2024 9:59 AM T: ??10/13/2024 9:59 AM Report ID: [id number] Reading Location: ??[id number] Procedure Note Fuad Pandey MD - 10/13/2024 EXAM DESCRIPTION: US THYROID REASON FOR STUDY: Nontoxic single thyroid nodule TECHNIQUE: Ultrasound of the thyroid was performed with grayscale andcolor doppler. COMPARISON: Ultrasound dated July 22, 2023. FINDINGS: RIGHT: The right thyroid lobe measures 5.5 x 2.6 x 2.0 cm.The right thyroid lobe is normal in echotexture. Within the superior aspect of the right lobe of the thyroid there is asolid hypoechoic nodule that is wider than tall with smooth margins without concerning calcifications measuring a maximum of 0.7 x 0.5 x 0.5 cm (previously 0.7 cm). TIRADS 4, unchanged. A similar appearing nodule is present within the interpolar regionmeasuring maximum of 0.7 cm, stable. TIRADS 4. A 3rd lesion within the inferior pole posteriorly seen measuring maximumof 1.1 x 1.4 x 0.9 cm (previously 1.9 x 1.1 x 1.1 cm). TIRADS 4. This isstatus post FNA. LEFT: The left thyroid lobe measures 5.4 x 2.1 x 1.9 cm. The leftthyroid lobe is normal in echotexture. In the interpolar region there is a solid hypoechoic nodule that is widerthan tall with smooth margins without concerning calcifications measuringmaximum of 0.6 x 0.5 x 0.5 cm, stable. TIRADS 4. No new thyroid nodules areseen. ISTHMUS: The isthmus measures 0.3 cm in AP dimension. The isthmus isnormal in echotexture. VASCULARITY: Normal. OTHER: No other significant finding. IMPRESSION: 1. Bilateral thyroid nodules as above, stable. Follow-up as perguidelines below. ACR TI-RADS Risk Category: TIRADS 4 REFERENCE: According to the ACR Thyroid Imaging, Reporting and Data System (TI-RADS): White Paper of the ACR TI-RADS Committee Mar, 2017recommendations regarding the management of thyroid nodules are as follows: 1. TI-RADS 1: Risk of malignancy <2%, no FNA or follow up required. 2. TI-RADS 2: Risk of malignancy <2%, no FNA or follow up required. 3. TI-RADS 3: Risk of malignancy 2%-5%. Nodules 1.5 cm or greater followup at 1, 3 and 5 years recommended, for nodules 2.5 cm or greater FNArecommended. 4. TI-RADS 4: Risk of malignancy 5%-20% Nodules 1.0 cm or greater followup at 1, 2, 3 and 5 years recommended, for nodules 1.5 cm or greater FNA recommended 5. TI-RADS 5: Risk of malignancy >20%. Nodules 0.5 cm or greater annual follow up for 5 years recommended, for nodules 1.0 cm or greater FNA recommended. The ACT TI-RADS committee recommends targeting no more than two nodulesfor FNA. If three or more nodules meet criteria for FNA, the two with themost suspicious appearance based on ACR TI-RADS points should be sampled. THIS IS AN ELECTRONICALLY VERIFIED FINAL REPORT 10/13/2024 9:59 AM - Electronically signed by Fuad Pandey M.D. JA: WADE Report ID: [id number] Reading Location: [id number] us Miguel Angel Lockwood MD IMG US PROCEDURES Final Resu lt * CT INJECTION SINGLE/INVOICING MACHINE OPERATOR TRIGGER POINT 1/2 MUSCLES (09/06/2024 8:30 AM CDT) Narrative Christine Goetz NP - 09/06/2024 8:30 AM CDT Christine Goetz NP ? 09/06/2024 ??8:23 PM Trigger Point Injection Performed by: Christine Goetz NP Authorized by: Christine Goetz NP ?? Consent Given by: ??Patient Site marked: the procedure site was marked ?? Timeout: prior to procedure the correct patient, procedure, and site was verified ?? Consent obtained:: ??Verbal Risks discussed, including, but not limited to:: ??Pain Alternatives discussed:: ??Alternative treatment Site/side marked: Yes ?? Indications: ??Myalgia Location: ??R gluteus paige Local anesthetic: ??Ethyl chloride spray Ultrasound guidance: No ?? Needle size: ??22 G Number of muscles: ??1 or 2 Approach: ??Posterior Medications: ??60 mg ketorolac 30 mg/mL Patient tolerance: ??Patient tolerated the procedure well with no immediate complications us Christine Goetz TOOL GRINDING MACHINE OPERATOR IN CLINIC/BEDSIDE ORDERABLE S Final Result * XR Spine Lumbar W Bending 6 or More Views (09/06/2024 8:26 AM CDT) Anatomical Region Laterality Modality Spine N/A Computed Radiogr aphy 09/06/2024 9:13 AM CDT Narrative 09/06/2024 9:15 AM CDT EXAM DESCRIPTION: XR SPINE LUMBAR W BENDING 6 OR MORE VIEWS REASON FOR STUDY: pain ?? Increased pain in low back and right leg for 6 months., no injury ? FINDINGS: 6 views submitted with comparison 10/07/2023. No acute fractures are identified. ??There is mild retrolisthesis of L5 on S1. ?? The intervertebral disc space heights are normal. ??Moderate inferior lumbar facet osteoarthritis is present. ??Flexion-extension views demonstrate no abnormal translation. IMPRESSION: Mild retrolisthesis of L5 on S1. Moderate inferior lumbar facet osteoarthritis. THIS IS AN ELECTRONICALLY VERIFIED FINAL REPORT 09/06/2024 9:15 AM - Electronically signed by ??Jose Eduardo Mendez M.D. D: ??09/06/2024 9:15 AM T: Report ID: [id number] Reading Location: ??[id number] Procedure Note Jose Eduardo Mendez MD - 09/06/2024 EXAM DESCRIPTION: XR SPINE LUMBAR W BENDING 6 OR MORE VIEWS REASON FOR STUDY: pain Increased pain in low back and right leg for 6 months., no injury FINDINGS: 6 views submitted with comparison 10/07/2023. No acute fractures are identified. There is mild retrolisthesis of L5 onS1. The intervertebral disc space heights are normal. Moderate inferiorlumbar facet osteoarthritis is present. Flexion-extension views demonstrate no abnormal translation. IMPRESSION: Mild retrolisthesis of L5 on S1. Moderate inferior lumbar facet osteoarthritis. THIS IS AN ELECTRONICALLY VERIFIED FINAL REPORT 09/06/2024 9:15 AM - Electronically signed by Jose Eduardo Mendez M.D. T: Report ID: [id number] Reading Location: [place] [address] Christine Goetz NP IMG XR PROCEDURES Final Res ult * Diagnostic Mammogram Bilateral W Homer (06/10/2024 2:07 PM CDT) Anatomical Region Laterality Modality Breast Bilateral Mammography 06/10/2024 2:12 PM CDT Narrative 06/10/2024 2:15 PM CDT EXAM DESCRIPTION: DIAGNOSTIC MAMMOGRAM BILATERAL W HOMER REASON FOR STUDY: 48-year-old female presents for evaluation of nonfocal pain involving the lateral aspect of each breast. TECHNIQUE: ??CC and MLO views of the bilateral breasts were obtained with digital technique using breast tomosynthesis with C view. ?? COMPARISON: Mammograms from [facility] ([place], [place]) dated 02/21/2024, 10/23/2022, 09/10/2021, and 09/08/2020 FINDINGS: DENSITY: The breasts have scattered areas of fibroglandular density. MAMMOGRAM FINDINGS: No suspicious masses, suspicious calcifications, or other suspicious findings are seen in either breast. ??There is no new suspicious finding in either breast on mammogram. IMPRESSION: 1. ?? No suspicious finding on mammogram to account for the patient's nonfocal bilateral breast pain. ??Clinical follow-up is recommended. ??Any further evaluation regarding this pain should be based on clinical grounds. 2. ?? No mammographic evidence of malignancy in either breast. ??Screening mammogram in 1 year is recommended. BIRADS: 1 ??Negative The patient was notified of these findings and recommendations at the time of the examination. ??She was offered a breast pain informational handout prior to leaving the breast center. THIS IS AN ELECTRONICALLY VERIFIED FINAL REPORT 06/10/2024 2:15 PM - Electronically signed by ??Clay Castro M.D., MD: D: ??06/10/2024 2:15 PM T: ??06/10/2024 2:15 PM Report ID: [id number] Reading Location: ??MAMMMHE us Desiree Moody MD IMG MAMMO PROCEDURES Final R esult * (ABNORMAL) COLONOSCOPY (03/22/2022) [facility] Scribed Colonoscopy Abnormal Comment:5yrs us Juan Noyola MD HEALTH MAINTENANCE Final Result * Hepatitis C antibody (07/13/2021 12:28 PM CDT) Pathologist [facility] [place] Hep C Ab <0.1 0.0 - 0.9 s/co ratio [facility] - 01 Comment: ?Negative: ? < 0.8 ? Indeterminate: 0.8 - 0.9 ?Positive: ? > 0.9 The CDC recommends that a positive HCV antibody result be followed up with a HCV Nucleic Acid Amplification test ([id number]). Blood specimen (specimen) 07/13/2021 12:28 PM CDT 07/13/2021 Narrative [facility] - 07/14/2021 9:36 AM CDT Performed at: ??01 - [facility] [address] [place], [place] ??[id number] Craft Artist: Dilshad Nunez PhD, Phone: ??[phone] Desiree Moody MD LAB MICROBIOLOGY - GENERAL O RDERABLES Final Result [facility] - 01 * PAP SMEAR WITH HPV (12/29/2018) HM Pap smear Unknown us Historical Provider HEALTH MAINTENANCE Final Result from Last 3 Months or Most Recently Relevant to Health Maintenance Insurance [facility]/PPO Address: [id number] [place] [address] [facility] Address: [address] [address] [place] [address] Care Teams Entry Level Accounting Clerk Relationship Specialty Start Date End Date Desiree Moody MD [facility] [phone] PCP - General Internal Medicine 01/30/19 Romel Marrero MD [address] [facility] [address] [place] [address] [place] [address] Consulting Physician Pulmonary Disease 06/16/19 Vladislav Nieves MD [address] [facility] [address] [place] [address] [place] [address] Consulting Physician Sleep Medicine 06/16/19 Nakul Fisher MD [address] [facility] [address] [facility] [address] [place] [address] Referring Physician Obstetrics and Gynecology 06/16/19 Juan Noyola MD [address] [place] [address] Referring Physician Gastroenterology 06/16/19 Dylan Christine, DPM [address] [place] [address] Consulting Physician Podiatry 07/19/24
--- OUTSIDE RECORDS SUMMARY | 2024-12-02 09:56 | XMS_ITS | Encounter Summary ---
Author Organization [facility] Facility Care Team Providers Care Gyroscopic Instrument Tester Name Role Phone Desiree Moody MD Primary Care Provider + [phone] Sushil Ching MD Unavailable [phone] Romel Marrero MD Unavailable [phone] Vladislav Nieves MD Unavailable [phone] Nakul Fisher MD Unavailable [phone] Juan Noyola MD Unavailable [phone] Dylan Christine DPM Unavailable [phone] Encounter Details Date Type Department Care Team (Latest Contact Info) Description 04/27/2018 Orders Only [facility] CLINCONV Provider, MD Letitia [address] [place] [id number] Social History Tobacco Use Types Packs/Day Years Used Date Smoking Tobacco: Never Assessed Comments Unknown Sex and Gender Information Value Date Recorded Sex Assigned at Not on file Legal Sex Female 10:22 PM FOOD CART ATTENDANT Gender Identity Not on file Sexual Orientation Not on file documented as of this encounter Plan of Treatment Not on file documented as of this encounter Procedures Procedure Name Priority Date/Time Associated Diagnosis Comments SCAN - LABS 04/28/2018 12:00 AM CDT documented in this encounter Results * SCAN - LABS (04/28/2018 12:00 AM CDT) Narrative 04/28/2018 12:00 AM CDT Ordered by an unspecified provider. us Historical Provider Final Res ult documented in this encounter Visit Diagnoses Not on filedocumented in this encounter Additional Health Concerns Infection Onset Date Last Indicated Resolved Time COVID: Suspected 05/01/2021 05/01/2021 05/02/2021 6:18 AM CDT COVID: Suspected 10/22/2022 10/22/2022 10/22/2022 1:29 PM FOOD CART ATTENDANT COVID: Suspected 10/22/2022 10/22/2022 10/22/2022 7:35 PM FOOD CART ATTENDANT COVID: Suspected 03/11/2023 03/11/2023 03/11/2023 2:26 PM CDT COVID: Suspected 03/11/2023 03/11/2023 03/11/2023 8:42 PM CDT COVID: Suspected 11/05/2023 11/05/2023 11/05/2023 2:38 PM FOOD CART ATTENDANT COVID: Suspected 01/28/2024 01/28/2024 01/28/2024 9:32 AM CDT COVID: Suspected 01/30/2024 01/30/2024 01/30/2024 9:12 AM CDT documented as of this encounter Care Teams Gyroscopic Instrument Tester Relationship Specialty Start Date End Date Desiree Moody MD [address] [place] [id number] PCP - General Internal Medicine 01/30/19 Sushil Ching MD [address] [place] [address] Consulting Physician Otolaryngology 06/16/19 07/08/22 Romel Marrero MD [address] [place] [address] Consulting Physician Pulmonary Disease 06/16/19 Vladislav Nieves MD [address] [facility] [address] [place] [address] Consulting Physician Sleep Medicine 06/16/19 Nakul Fisher MD [address] [facility] [address] [place] [address] Referring Physician Obstetrics and Gynecology 06/16/19 Juan Noyola MD [address] [place] [address] Referring Physician Gastroenterology 06/16/19 Dylan Christine, DPM [address] [place] [address] Consulting Physician Podiatry 07/19/24 documented as of this encounter
--- OUTSIDE RECORDS SUMMARY | 2024-12-02 09:56 | XMS_ITS | Encounter Summary ---
Author Organization [facility] Facility Care Team Providers Care Decay Control Operator Name Role Phone Desiree Moody MD Primary Care Provider + [phone] Sushil Ching MD Unavailable [phone] Romel Marrero MD Unavailable [phone] Vladislav Nieves MD Unavailable [phone] Nakul Fisher MD Unavailable [phone] Juan Noyola MD Unavailable [phone] Dylan Christine DPM Unavailable [phone] Encounter Details Date Type Department Care Team (Latest Contact Info) Description 05/27/2018 Orders Only [facility] CLINCONV ProviderLetitia MD [address] [place] [address] Social History Tobacco Use Types Packs/Day Years Used Date Smoking Tobacco: Never Assessed Comments Unknown Sex and Gender Information Value Date Recorded Sex Assigned at Not on file Legal Sex Female 10:22 PM STATISTICS TEACHER Gender Identity Not on file Sexual Orientation Not on file documented as of this encounter Plan of Treatment Not on file documented as of this encounter Procedures Procedure Name Priority Date/Time Associated Diagnosis Comments COLONOSCOPY - SCAN 05/27/2018 12 :00 AM CDT documented in this encounter Results * COLONOSCOPY - SCAN (05/27/2018 12:00 AM CDT) Narrative 05/27/2018 12:00 AM CDT Ordered by an unspecified provider. us Historical Provider Final Res ult documented in this encounter Visit Diagnoses Not on filedocumented in this encounter Additional Health Concerns Infection Onset Date Last Indicated Resolved Time COVID: Suspected 05/01/2021 05/01/2021 05/02/2021 6:18 AM CDT COVID: Suspected 10/22/2022 10/22/2022 10/22/2022 1:29 PM STATISTICS TEACHER COVID: Suspected 10/22/2022 10/22/2022 10/22/2022 7:35 PM STATISTICS TEACHER COVID: Suspected 03/11/2023 03/11/2023 03/11/2023 2:26 PM CDT COVID: Suspected 03/11/2023 03/11/2023 03/11/2023 8:42 PM CDT COVID: Suspected 11/05/2023 11/05/2023 11/05/2023 2:38 PM STATISTICS TEACHER COVID: Suspected 01/28/2024 01/28/2024 01/28/2024 9:32 AM CDT COVID: Suspected 01/30/2024 01/30/2024 01/30/2024 9:12 AM CDT documented as of this encounter Care Teams Decay Control Operator Relationship Specialty Start Date End Date Desiree Moody MD [address] [place] [address] PCP - General Internal Medicine 01/30/19 Sushil Ching MD [address] [place] [address] Consulting Physician Otolaryngology 06/16/19 07/08/22 Romel Marrero MD [address] [place] [address] Consulting Physician Pulmonary Disease 06/16/19 Vladislav Nieves MD [address] [facility] [address] [place] [address] Consulting Physician Sleep Medicine 06/16/19 Nakul Fisher MD [address] [facility] [address] [place] [address] Referring Physician Obstetrics and Gynecology 06/16/19 Juan Noyola MD [address] [place] [address] Referring Physician Gastroenterology 06/16/19 Dylan Christine, DPM [address] [place] [address] Consulting Physician Podiatry 07/19/24 documented as of this encounter
--- OUTSIDE RECORDS SUMMARY | 2024-12-02 09:56 | XMS_ITS | Clinical Summary ---
Author Organization [facility] Address [address] [place] [address] Care Team Providers Care Meat Specialist Name Role Phone Desiree Moody MD Primary Care Provider [phone] Romel Marrero MD Unavailable [phone] Vladislav Nieves MD Unavailable [phone] Nakul Fisher MD Unavailable [phone] Juan Noyola MD Unavailable [phone] Dylan Christine DPM Unavailable [phone] Allergies Active Allergy Reactions Criticality Noted Date [...] cancer Cont annual mammogram screenings Cont under NEWSCAST DIRECTOR Work on wt loss Assessment & Plan [...] better Assessment & Plan (12/31/2022 10:47 AM PLATFORM MATERIAL HANDLING SUPERVISOR): Moderate depression Refer to a counselor Check [...] counseling Assessment & Plan (12/31/2022 10:43 AM PLATFORM MATERIAL HANDLING SUPERVISOR): Check TSH and free T4 Start lexapro [...] illnesses Assessment & Plan (11/05/2023 2:23 PM PLATFORM MATERIAL HANDLING SUPERVISOR): Work on wt loss Due to wait [...] please contact the office. I strongly encourage myChart sign ups. It can facilitate communication flow. [...] and establishing or updating healthcare power of estate attorney document and providing our office with [...] H2O Assessment & Plan (12/31/2022 10:46 AM PLATFORM MATERIAL HANDLING SUPERVISOR): Compliance poor Start using CPAP more regularlyl [...] Overview (03/18/2019): since childbirth Sickle cell trait ([facility]) 03/26/2016 Assessment & Plan (07/19/2024 7:36 AM [...] ff up with Dr Noyola Trigger: ? Maljamar, nuts Ovarian cyst 03/26/2016 Resolved Problems Problem [...] hydration. Assessment & Plan (11/05/2023 2:36 PM PLATFORM MATERIAL HANDLING SUPERVISOR): Prob covid as well since son is [...] IMMEDIATELY. Assessment & Plan (10/22/2022 2:00 PM PLATFORM MATERIAL HANDLING SUPERVISOR): Rapid covid and flu negative PCR pending [...] 07/09/2022 Assessment & Plan (01/07/2022 2:07 PM PLATFORM MATERIAL HANDLING SUPERVISOR): Cont doxycline, refill if needed Add flonase ns Add prednisone Cont Inhaler Cont tessalon perles Nasal saline every four hours over the counter, prescriptions sent to pharmacy, may use over the counter allergy or sinus medication, Maintain adequate fluid intake. May use vwel-flc-dtpnnph acetaminophen or ibuprofen. Medication instructions were provided to the patient. The risks and benefits of the treatment plan were discussed with the patient. Signs and symptoms of emergency were discussed with the patient. Minimize close contact with other individuals. Nasal mass 12/18/2020 07/09/2022 Acute pancreatitis 03/26/2016 9 Encounters Date Type Department Care Team Description 11/24/2024 11:15 AM PLATFORM MATERIAL HANDLING SUPERVISOR Telemedicine [facility] [address] [place] [phone] Chayo Osboren NP COVID-19 (Primary Dx) 11/24/2024 Nurse Triage [facility] [address] [facility] [address] [place] [phone] Desiree Moody MD 11/01/2024 4:45 PM PLATFORM MATERIAL HANDLING SUPERVISOR Office Visit [facility] at [address] [address] Joanie Vasquez NP Onychomycosis (Primary Dx) 10/11/2024 4:32 PM PLATFORM MATERIAL HANDLING SUPERVISOR - 10/11/2024 11:59 PM PLATFORM MATERIAL HANDLING SUPERVISOR Hospital Encounter [facility] [address] [place] [address] Nontoxic single thyroid nodule Discharge Disposition: Discharge to home or self care 09/06/2024 8:30 AM CDT Office Visit [facility] [address] [facility] [address] [place] [phone] Christine Goetz NP Chronic bilateral low back pain with right-sided sciatica; Lumbar facet arthropathy, moderate inferior; Retrolisthesis of lumbar vertebrae,mild L5 on S1; It band syndrome, right; Myalgia, other site 09/06/2024 8:16 AM CDT - 09/06/2024 11:59 PM CDT Hospital Encounter [facility] [address] [place] [address] Lumbar pain Discharge Disposition: Discharge to home or self care from Last 3 Months Immunizations Name Administration Dates Next Due DTP 08/23/1987, 7,10/17/1978,10/17,10/12/1974,10/12/1974,06/23/1974 ,06/23/1974 Influenza, Quadrivalent, Spl it, Preservative Free, Intramuscular 12/31/2022,07/22/2019,07/22/2019,09/08 Influenza, Trivalent, IM (MDV) 08/09/2021 Influenza, Unspecified 10/10/2023(Deferr ed: Patient Refused),09/10/2023(Deferred: Patient Refused) MMR 09/17/1978,09/17/1978 OPV 09/17/1978, 8,10/12/1974,10/12,06/23/1974,06/23/1974 Pneumococcal Conjugate Pcv20 07/09/2022 Tdap 07/05/2021,11/20/2009 Surgical History Surgery Date Site/Laterality Comments ECTOPIC COLONOSCOPY 11/10/2017 - 11/09/2018 ESOPHAGOGASTRODUODENOSCOPY unknown NOSE SURGERY 12/11/2020 - 01/07/2021 Dr Robert Gifford, benign mass removed Medical History Medical History Date Comments Acute pancreatitis 03/26/2016 Pulmonary nodule Allergic IBS (irritable bowel syndrome) Diverticulosis HSV (herpes simplex virus) anogenital infection Obesity Sickle cell trait (CMS/HCC) (HCC) Anal sphincter incompetence MONIQUE (obstructive sleep apnea) Nasal mass 12/18/2020 Anxiety Infection 08-19-23 Lumbar facet arthropathy Retrolisthesis of lumbar vertebrae Family History Medical History Relation Name Comments Breast cancer Mother [facility] Cancer Mother [facility] GI tract and pelvc cancer Colon cancer Other 1 Malignant Neopl asm, Colon - (Added by TW Conv) Rectal cancer Other 2 Rectal Cancer - (Added by TW Conv) Anesthesia problems Neg Hx Relation Name Status Comments Father Mother [facility] Alive Other 1 Other 2 Social History Tobacco Use Types Packs/Day Years [...] on file Legal Sex Female 10:22 PM PLATFORM MATERIAL HANDLING SUPERVISOR Gender Identity Not on file Sexual Orientation Not on file 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 file Not on file N ot on file Obstetrics History Last Filed Vital Signs Vital Sign Reading Time Taken Comments Blood Pressure 118/83 11/01/2024 4:53 PM PLATFORM MATERIAL HANDLING SUPERVISOR Pulse 100 11/01/2024 4:53 PM PLATFORM MATERIAL HANDLING SUPERVISOR Temperature 36.8 ??C (98.2 ??F) 11/01/2024 4:53 PM CS T Respiratory Rate 20 11/01/2024 4:53 PM PLATFORM MATERIAL HANDLING SUPERVISOR Oxygen Saturation 98% 11/01/2024 4:53 PM PLATFORM MATERIAL HANDLING SUPERVISOR Inhaled Oxygen Concentration - - Weight 92.5 kg (204 lb) 11/01/2024 4:53 PM PLATFORM MATERIAL HANDLING SUPERVISOR Height 162.6 cm (5' 4 ) 09/06/2024 8:27 AM CDT Body Mass Index 35.02 09/06/2024 8:27 AM CDT Plan of Treatment Health Maintenance Due Date Last Done Comments Hepatitis B Screening 1991 Cervical Cancer Screening 12/29/2019 12/29/2018 Zoster Vaccine (1 of 2) 2023 Influenza Vaccine (#1) 2024 , 08/09/2021, 07/22/2019, Additional history exists Breast Cancer Screening-Mammogram 06/10/2025 06/10/2024, 02/21/2024, 10/23/2022, Additional history exists Depression Screening 07/19/2025 07/19/2024, 07/19/2024, 04/12/2024, Additional history exists Regular Well Visit/Exam 18-64 07/19/2025, 07/10/2023, 07/09/2022, Additional history exists DTaP/Tdap/Td Vaccine (8 - Td or Tdap) 07/05/2031 07/05/2021, 11/20/2009, 08/23/1987, Additional history exists Colon Cancer Screening-Colonoscopy 03/22/2032 03/22/2022, 01/24/2021, 01/11/2021 Hepatitis C Screening Completed 07/13/2021 , 06/19/2019, 06/25/2017 Pneumococcal vaccine <65 Completed 07/09/2022 Procedures Procedure Name Priority Date/Time Associated Diagnosis Comments US THYROID Schedule Routine, Read Routine (OP Routine) 10/11/2024 5:15 PM PLATFORM MATERIAL HANDLING SUPERVISOR Nontoxic single thyroid nodule [place] INJECTION SINGLE/CALIBRATION LABORATORY TECHNICIAN TRIGGER POINT 1/2 MUSCLES Routine 09/06/2024 8:30 [...] Results * US Thyroid (10/11/2024 5:15 PM PLATFORM MATERIAL HANDLING SUPERVISOR) Anatomical Region Laterality Modality Head and Neck N/A Ultrasound 10/13/2024 9:55 AM PLATFORM MATERIAL HANDLING SUPERVISOR Narrative 10/13/2024 9:59 AM PLATFORM MATERIAL HANDLING SUPERVISOR EXAM DESCRIPTION: ?? US THYROID REASON FOR [...] AM T: ??10/13/2024 9:59 AM Report ID: [id number] Reading Location: ??[id number] Procedure Note Fuad Pandey MD - 10/13/2024 [...] Fuad Pandey M.D. JA: WADE Report ID: [id number] Reading Location: [id number] us Miguel Angel Lockwood MD IMG US PROCEDURES Final Resu lt * [place] INJECTION SINGLE/CALIBRATION LABORATORY TECHNICIAN TRIGGER POINT 1/2 MUSCLES (09/06/2024 8:30 AM [...] with no immediate complications us Christine Goetz MANAGER PACKAGE IN CLINIC/BEDSIDE ORDERABLE S Final Result * [...] D: ??09/06/2024 9:15 AM T: Report ID: [id number] Reading Location: ??[id number] Procedure Note Jose Eduardo Mendez MD - [...] Jose Eduardo Mendez M.D. T: Report ID: [id number] Reading Location: [place] [address] Christine Goetz NP IMG XR PROCEDURES Final [...] with C view. ?? COMPARISON: Mammograms from [facility] ([place], [place]) dated 02/21/2024, 10/23/2022, 09/10/2021, and 09/08/2020 [...] PM T: ??06/10/2024 2:15 PM Report ID: [id number] Reading Location: ??MAMMMHE us Desiree Moody MD IMG MAMMO PROCEDURES Final R esult * (ABNORMAL) COLONOSCOPY (03/22/2022) [facility] Scribed Colonoscopy Abnormal Comment:5yrs us Juan Noyola MD HEALTH MAINTENANCE Final Result * Hepatitis C antibody (07/13/2021 12:28 PM CDT) Pathologist [facility] Hep C Ab <0.1 0.0 - 0.9 s/co ratio [facility] - 01 Comment: ?Negative: ? < 0.8 ? Indeterminate: 0.8 - 0.9 ?Positive: ? > 0.9 The CDC recommends that a positive HCV antibody result be followed up with a HCV Nucleic Acid Amplification test (798576). Blood specimen (specimen) 07/13/2021 12:28 PM CDT 07/13/2021 Narrative [facility] - 07/14/2021 9:36 AM CDT Performed at: ??01 - [facility] [address] [place], [place] ??[id number] Oven Operator Automatic: Dilshad Nunez PhD, Phone: ??[phone] Desiree Moody MD LAB MICROBIOLOGY - GENERAL O RDERABLES Final Result [facility] - 01 * PAP SMEAR WITH HPV (12/29/2018) HM Pap smear Unknown us Historical Provider HEALTH MAINTENANCE Final Result from Last 3 Months or Most Recently Relevant to Health Maintenance Insurance Care Teams Meat Specialist Relationship Specialty Start Date End Date Desiree Moody MD [facility] [phone] PCP - General Internal Medicine 01/30/19 Romel Marrero MD [address] [facility] [address] [place] [address] [place] [address] Consulting Physician Pulmonary Disease 06/16/19 Vladislav Nieves MD [address] [facility] [address] [address] [place] [address] Consulting Physician Sleep Medicine 06/16/19 Nakul Fisher MD [address] [facility] [address] [facility] [address] [place] [address] Referring Physician Obstetrics and Gynecology 06/16/19 Juan Noyola MD [address] [place] [address] Referring Physician Gastroenterology 06/16/19 Dylan Christine, DPM [address] [facility] [place] [address] Consulting Physician Podiatry 07/19/24
--- OUTSIDE RECORDS SUMMARY | 2024-12-02 09:56 | XMS_ITS | Encounter Summary ---
Author Organization [facility] Address [address] [place] [address] Care Team Providers Care Car Seat Coverer Name Role Phone Desiree Moody MD Primary Care Provider [phone] Romel Marrero MD Unavailable [phone] Vladislav Nieves MD Unavailable [phone] Nakul Fisher MD Unavailable [phone] Juan Noyola MD Unavailable [phone] Dylan Christine DPM Unavailable [phone] Encounter Details Date Type Department Care Team (Late st Contact Info) Description 12/24/2023 Orders Only [facility] Information Management [address] [place] [address] Scanning, Provider Social History Tobacco Use Types Packs/Day Years Used Date Smoking Tobacco: Never Smokeless Tobacco: Never Alcohol Use Standard Drinks/Week Comments Not Currently 0 (1 standard drink = 0.6 oz pur e alcohol) AUDIT-C Answer Date Recorded Q1: How often do you have a drink containing alcohol? Never 11/05/2023 Q2: How many drinks containi ng alcohol do you have on a typical day when you are drinking? Patient does not drink Q3: How often do you have si x or more drinks on one occasion? Never 11/05/2023 PHQ-2 Answer Date Recorded PHQ-2 Total Score (If total score is 3 or more points, staff should administer the PHQ-9) 3 11/24/2023 Personal Safety Answer Date Recorded Have you ever been in or are you currently in a harmful physical or emotional relationship or is someone making you feel afraid or unsafe? 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 Not on file N ot on file documented as of this encounter Plan of Treatment Not on file documented as of this encounter Procedures Procedure Name Priority Date/Time Associated Diagnosis Comments SCAN - RADIOLOGY/IMAGING 12/24/2023 documented in this encounter Results * SCAN - RADIOLOGY/IMAGING (12/24/2023) Anatomical Region Laterality Modality Other us Provider Scanning Final Result documented in this encounter Visit Diagnoses Not on filedocumented in this encounter Additional Health Concerns Infection Onset Date Last Indicated Resolved Time COVID: Suspected 01/28/2024 01/28/2024 01/28/2024 9:32 AM CDT COVID: Suspected 01/30/2024 01/30/2024 01/30/2024 9:12 AM CDT documented as of this encounter Care Teams Car Seat Coverer Relationship Specialty Start Date End Date Desiree Moody MD [address] [place] [id number] PCP - General Internal Medicine 01/30/19 Romel Marrero MD [address] [facility] [address] [place] [address] [place] [address] Consulting Physician Pulmonary Disease 06/16/19 Vladislav Nieves MD [address] [facility] [address] [place] [address] Consulting Physician Sleep Medicine 06/16/19 Nakul Fisher MD [address] [facility] [address] [place] [address] Referring Physician Obstetrics and Gynecology 06/16/19 Juan Noyola MD [address] [place] [address] Referring Physician Gastroenterology 06/16/19 Dylan Christine, YOU [address] [place] [address] Consulting Physician Podiatry 07/19/24 documented as of this encounter
--- OUTSIDE RECORDS SUMMARY | 2024-12-02 09:56 | XMS_ITS | Referral Summary ---
Author Organization [facility] Address [address] [facility] [place] [address] Care Team Providers Care Automatic Buffer Name Role Phone Unavailable Primary Care Provider Unavailabl e Source Comments [facility],non-owned Affiliates and Associated Physician Practices is amultiple site organization consisting of ambulatory clinics and hospital sitesin [place], [place], [place] and [place]. This disclosure is being madepursuant to the Care Everywhere program and may not contain all information available regarding this patient. Last updated 18.[facility] Social History Tobacco Use Types Packs/Day Years Used Date Smoking Tobacco: Never Assessed Sex and Gender Information Value Date Recorded Sex Assigned at Not on file Gender Identity Not on file Sexual Orientation Not on file Plan of Treatment Not on file
--- OUTSIDE RECORDS SUMMARY | 2024-12-02 09:56 | XMS_ITS | Clinical Summary ---
Author Organization [facility] Address [address] [place] [address]. [place], [place] [address] [place] [address] Care Team Providers Care Powerhouse Mechanic Supervisor Name Role Phone Unavailable Primary Care Provider Unavailabl e Social History Tobacco Use Types Packs/Day Years Used Date Smoking Tobacco: Never Assessed Comments Unknown Sex and Gender Information Value Date Recorded Sex Assigned at Not on file Legal Sex Female 6:38 PM CDT Gender Identity Not on file Sexual Orientation Not on file Plan of Treatment Health Maintenance Due Date Last Done Comments Cervical Cancer Screening Pa p Smear (Age 30 to 64) Every 3 Years 1973 Colorectal Cancer Screening Colonoscopy (10 Years) 1973 Annual Physical 1976 Hepatitis C 1991 DTaP, Tdap and Td Vaccines ( 1 - Tdap) 1992 Hepatitis B Vaccines (1 of 3 - 19+ 3-dose series) 1992 Cervical Cancer Screening Pa p with HPV Testing (Age 30 to 64) Every 5 Years 2003 Cervical Cancer Screening with HPV 2003 Mammogram Screening 2013 Zoster Vaccines (1 of 2) 2023 COVID-19 Vaccine (2023-2 5 season) 2024 Influenza Adult (#1) 2024 Meningococcal Vaccine Aged Out No isaías alea eligible based on patient's age to complete this topic Pneumococcal Vaccine: Pediat rics (0 to 5 Years) and At-Risk Patients (6 to 64 Years) Aged Out No longer eligible b ased on patient's age to complete this topic RSV Immunizations Under 20 Months Aged Out No longer eligible based on patient's age to complete this topic
--- OUTSIDE RECORDS SUMMARY | 2024-12-02 09:56 | XMS_ITS | Patient Health Summary ---
Author Organization [facility] Address [address] [facility] [place] [address] Care Team Providers Care Ice Cream Freezer Helper Name Role Phone Unavailable Primary Care Provider Unavailabl e Note from [facility],non-owned Affiliates and Associated Physician Practices is amultiple site organization consisting of ambulatory clinics and hospital sitesin [place], [place], [place] and [place]. This disclosure is being madepursuant to the Care Everywhere program and may not contain all information available regarding this patient. Last updated 18.[facility] Social History Tobacco Use Types Packs/Day Years Used Date Smoking Tobacco: Never Assessed Sex and Gender Information Value Date Recorded Sex Assigned at Not on file Gender Identity Not on file Sexual Orientation Not on file Procedures * CULTURE STREP GROUP A(Performed 10/15/2014) Results * CULTURE STREP GROUP A (10/15/2014 7:40 PM RELISH BLENDER) Culture Beta Strep No Growth of Groups A, C or G Beta Streptococc us. [facility] Throat swab (specimen) ENTIRE THROAT (SURFACE REGION OF NECK) / Unknown 10/15/2014 7:40 PM RELISH BLENDER 10/17/2014 9:01 AM RELISH BLENDER Narrative [facility] - 10/18/2014 3:08 PM RELISH BLENDER JaySpecimen#[id number] Jay Loc/Rm/Bed: ED// Historical Provider MD LAB - MICROBIOLOG Y ORDERABLES [address] [address], [facility] [phone]
--- OUTSIDE RECORDS SUMMARY | 2024-12-02 09:56 | XMS_ITS | Encounter Summary ---
Author Organization [facility] Care Team Providers Care Mold Hoister Name Role Phone Desiree Moody MD Primary Care Provider [phone] Sushil Ching MD Unavailable [phone] Romel Marrero MD Unavailable [phone] Vladislav Nieves MD Unavailable [phone] Nakul Fisher MD Unavailable [phone] Juan Noyola MD Unavailable [phone] Dylan Christine DPM Unavailable [phone] Encounter Details Date Type Department Care Team (Latest Contact Info) Description 06/25/2018 Orders Only [facility] Provider, MD Letitia [address] [place] [address] Social History Tobacco Use Types Packs/Day Years Used Date Smoking Tobacco: Never Assessed Comments Unknown Sex and Gender Information Value Date Recorded Sex Assigned at Not on file Legal Sex Female 10:22 PM [employer] AX CONSULTANT Gender Identity Not on file Sexual Orientation Not on file documented as of this encounter Plan of Treatment Not on file documented as of this encounter Procedures Procedure Name Priority Date/Time Associated Diagnosis Comments PROCEDURE - RESULT 07/03/2018 12 :00 AM CDT documented in this encounter Results * PROCEDURE - RESULT (07/03/2018 12:00 AM CDT) Narrative 07/03/2018 12:00 AM CDT Ordered by an unspecified provider. us Historical Provider Final Res ult documented in this encounter Visit Diagnoses Not on filedocumented in this encounter Additional Health Concerns Infection Onset Date Last Indicated Resolved Time COVID: Suspected 05/01/2021 05/01/2021 05/02/2021 6:18 AM CDT COVID: Suspected 10/22/2022 10/22/2022 10/22/2022 1:29 PM [employer] D[employer] AX CONSULTANT COVID: Suspected 10/22/2022 10/22/2022 10/22/2022 7:35 PM [employer] D[employer] AX CONSULTANT COVID: Suspected 03/11/2023 03/11/2023 03/11/2023 2:26 PM CDT COVID: Suspected 03/11/2023 03/11/2023 03/11/2023 8:42 PM CDT COVID: Suspected 11/05/2023 11/05/2023 11/05/2023 2:38 PM [employer] D[employer] AX CONSULTANT COVID: Suspected 01/28/2024 01/28/2024 01/28/2024 9:32 AM CDT COVID: Suspected 01/30/2024 01/30/2024 01/30/2024 9:12 AM CDT documented as of this encounter Care Teams Mold Hoister Relationship Specialty Start Date End Date Desiree Moody MD [address] [place] [address] PCP - General Internal Medicine 01/30/19 Sushil Ching MD [address] [place] [address] Consulting Physician Otolaryngology 06/16/19 07/08/22 Romel Marrero MD [address] [place] [address] Consulting Physician Pulmonary Disease 06/16/19 Vladislav Nieves MD [address] [facility] [address] [place] [address] Consulting Physician Sleep Medicine 06/16/19 Nakul Fisher MD [address] [facility] [address] [place] [address] Referring Physician Obstetrics and Gynecology 06/16/19 Juan Noyola MD [address] [place] [address] Referring Physician Gastroenterology 06/16/19 Dylan Christine, DPM [address] [place] [address] Consulting Physician Podiatry 07/19/24 documented as of this encounter
--- OUTSIDE RECORDS SUMMARY | 2024-12-02 09:56 | XMS_ITS | Encounter Summary ---
Author Organization [facility] Healthcare Address [address] [place] [address] Care Team Providers Care Locomotive Engineer Electric Name Role Phone Desiree Moody MD Primary Care Provider [phone] Romel Marrero MD Unavailable [phone] Vladislav Nieves MD Unavailable [phone] Nakul Fisher MD Unavailable [phone] Juan Noyola MD Unavailable [phone] Dylan Christine DPBin Unavailable [phone] Encounter Details Date Type Department Care Team (Late st Contact Info) Description 12/15/2023 Orders Only [facility] [place] [address] [place] [address] Desiree Moody MD [facility] [address] Social History Tobacco Use Types Packs/Day Years [...] you are drinking? 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[employer] Not on file Not on file N ot on file documented as of this encounter Plan of Treatment Not on file documented as of this encounter Procedures Procedure Name Priority Date/Time Associated Diagnosis Comments SCAN - PATHOLOGY 12/15/2023 documented in this encounter Results * SCAN - PATHOLOGY (12/15/2023) us Desiree Moody MD Final Result documented in this encounter Visit Diagnoses Not on filedocumented in this encounter Additional Health Concerns Infection Onset Date Last Indicated Resolved Time COVID: Suspected 01/28/2024 01/28/2024 01/28/2024 9:32 AM CDT COVID: Suspected 01/30/2024 01/30/2024 01/30/2024 9:12 AM CDT documented as of this encounter Care Teams Locomotive Engineer Electric Relationship Specialty Start Date End Date Desiree Moody MD [address] [place] [address] PCP - General Internal Medicine 01/30/19 [place] [address] [place] [address] [address]RI[address]SON [address] [place] [address] Consulting Physician Pulmonary Disease 06/16/19 Vladislav Nieves MD [address] [facility] [address] [place] [address] Consulting Physician Sleep Medicine 06/16/19 Nakul Fisher MD [address] [facility] [address] [place] [address] Referring Physician Obstetrics and Gynecology 06/16/19 Juan Noyola MD [address] [place] [address] Referring Physician Gastroenterology 06/16/19 Dylan Christine, YOU [address] [place] [address] Consulting Physician Podiatry 07/19/24 documented as of this encounter
--- OUTSIDE RECORDS SUMMARY | 2024-12-02 09:56 | XMS_ITS | Encounter Summary ---
Author Organization [facility] Facility Care Team Providers Care Industry Segment Specialist Name Role Phone Desiree Moody MD Primary Care Provider + [phone] Sushil Ching MD Unavailable [phone] Romel Marrero MD Unavailable [phone] Vladislav Nieves MD Unavailable [phone] Nakul Fisher MD Unavailable [phone] Juan Noyola MD Unavailable [phone] Dylan Christine DPM Unavailable [phone] Encounter Details Date Type Department Care Team (Latest Contact Info) Description 02/11/2017 Orders Only [facility] Provider, MD Letitia [address] [place] [address] Social History Tobacco Use Types Packs/Day Years Used Date Smoking Tobacco: Never Assessed Comments Unknown Sex and Gender Information Value Date Recorded Sex Assigned at Not on file Legal Sex Female 10:22 PM BUTTER GRADER Gender Identity Not on file Sexual Orientation Not on file documented as of this encounter Plan of Treatment Not on file documented as of this encounter Procedures Procedure Name Priority Date/Time Associated Diagnosis Comments PROCEDURE - RESULT 02/18/2017 12 :00 AM CDT documented in this encounter Results * PROCEDURE - RESULT (02/18/2017 12:00 AM CDT) Narrative 02/18/2017 12:00 AM CDT Ordered by an unspecified provider. us Historical Provider Final Res ult documented in this encounter Visit Diagnoses Not on filedocumented in this encounter Additional Health Concerns Infection Onset Date Last Indicated Resolved Time COVID: Suspected 05/01/2021 05/01/2021 05/02/2021 6:18 AM CDT COVID: Suspected 10/22/2022 10/22/2022 10/22/2022 1:29 PM BUTTER GRADER COVID: Suspected 10/22/2022 10/22/2022 10/22/2022 7:35 PM BUTTER GRADER COVID: Suspected 03/11/2023 03/11/2023 03/11/2023 2:26 PM CDT COVID: Suspected 03/11/2023 03/11/2023 03/11/2023 8:42 PM CDT COVID: Suspected 11/05/2023 11/05/2023 11/05/2023 2:38 PM BUTTER GRADER COVID: Suspected 01/28/2024 01/28/2024 01/28/2024 9:32 AM CDT COVID: Suspected 01/30/2024 01/30/2024 01/30/2024 9:12 AM CDT documented as of this encounter Care Teams Industry Segment Specialist Relationship Specialty Start Date End Date Desiree Moody MD [address] [place] [address] PCP - General Internal Medicine 01/30/19 Sushil Ching MD [address] [place] [address] Consulting Physician Otolaryngology 06/16/19 07/08/22 Romel Marrero MD [address] [place] [address] Consulting Physician Pulmonary Disease 06/16/19 Vladislav Nieves MD 4600 [facility] 200 [place] [address] Consulting Physician Sleep Medicine 06/16/19 Nakul Fisher MD [address] [facility] 301 [place] [address] Referring Physician Obstetrics and Gynecology 06/16/19 Juan Noyola MD [address] [place] [address] Referring Physician Gastroenterology 06/16/19 Dylan Christine, DPM [address] [place] [address] Consulting Physician Podiatry 07/19/24 documented as of this encounter
--- OUTSIDE RECORDS SUMMARY | 2024-12-02 09:56 | XMS_ITS | Encounter Summary ---
Author Organization [facility] Facility Care Team Providers Care Law Instructor Name Role Phone Desiree Moody MD Primary Care Provider + [phone] Sushil Ching MD Unavailable [phone] Romel Marrero MD Unavailable [phone] Vladislav Nieves MD Unavailable [phone] Nakul Fisher MD Unavailable [phone] Juan Noyola MD Unavailable [phone] Dylan Christine DPM Unavailable [phone] Encounter Details Date Type Department Care Team (Latest Contact Info) Description 03/18/2018 Orders Only [facility] Provider, MD Letitia [address] [place] [address] Social History Tobacco Use Types Packs/Day Years Used Date Smoking Tobacco: Never Assessed Comments Unknown Sex and Gender Information Value Date Recorded Sex Assigned at Not on file Legal Sex Female 10:22 PM GENERAL SERVICE OFFICER Gender Identity Not on file Sexual Orientation Not on file documented as of this encounter Plan of Treatment Not on file documented as of this encounter Procedures Procedure Name Priority Date/Time Associated Diagnosis Comments COLONOSCOPY - SCAN 03/18/2018 12 :00 AM CDT documented in this encounter Results * COLONOSCOPY - SCAN (03/18/2018 12:00 AM CDT) Narrative 03/18/2018 12:00 AM CDT Ordered by an unspecified provider. us Historical Provider Final Res ult documented in this encounter Visit Diagnoses Not on filedocumented in this encounter Additional Health Concerns Infection Onset Date Last Indicated Resolved Time COVID: Suspected 05/01/2021 05/01/2021 05/02/2021 6:18 AM CDT COVID: Suspected 10/22/2022 10/22/2022 10/22/2022 1:29 PM GENERAL SERVICE OFFICER COVID: Suspected 10/22/2022 10/22/2022 10/22/2022 7:35 PM GENERAL SERVICE OFFICER COVID: Suspected 03/11/2023 03/11/2023 03/11/2023 2:26 PM CDT COVID: Suspected 03/11/2023 03/11/2023 03/11/2023 8:42 PM CDT COVID: Suspected 11/05/2023 11/05/2023 11/05/2023 2:38 PM GENERAL SERVICE OFFICER COVID: Suspected 01/28/2024 01/28/2024 01/28/2024 9:32 AM CDT COVID: Suspected 01/30/2024 01/30/2024 01/30/2024 9:12 AM CDT documented as of this encounter Care Teams Law Instructor Relationship Specialty Start Date End Date Desiree Moody MD [address] [place] [address] PCP - General Internal Medicine 01/30/19 Sushil Ching MD [address] [place] [address] Consulting Physician Otolaryngology 06/16/19 07/08/22 Romel Marrero MD [address] [place] [address] Consulting Physician Pulmonary Disease 06/16/19 Vladislav Nieves MD 4600 [facility] 200 [place] [address] Consulting Physician Sleep Medicine 06/16/19 Nakul Fisher MD [address] [facility] 301 [place] [address] Referring Physician Obstetrics and Gynecology 06/16/19 Juan Noyola MD [address] [place] [address] Referring Physician Gastroenterology 06/16/19 Dylan Christine, DPM [address] [place] [address] Consulting Physician Podiatry 07/19/24 documented as of this encounter
--- OUTSIDE RECORDS SUMMARY | 2024-12-02 09:56 | XMS_ITS | Encounter Summary ---
Author Organization [facility] Healthcare Address [address] [place] [address] Care Team Providers Care Schedule Analyst Name Role Phone Desiree Moody MD Primary Care Provider [phone] Romel Marrero MD Unavailable [phone] Vladislav Nieves MD Unavailable [phone] Nakul Fisher MD Unavailable [phone] Juan Noyola MD Unavailable [phone] Dylan Christine DPM Unavailable [phone] Encounter Details Date Type Department Care Team (Late st Contact Info) Description 12/01/2023 Orders Only [facility] [place] Health Information Management [address] [place] [address] Scanning, Provider Social History Tobacco Use [...] on file Legal Sex Female 10:22 PM TOOLSMITH Gender Identity Not on file Sexual Orientation Not on file 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 Not on file Not on file 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 Not on file Not on file N ot on file documented as of this encounter Plan of Treatment Not on file documented as of this encounter Procedures Procedure Name Priority Date/Time Associated Diagnosis Comments GI - RESULT 12/01/2023 documented in this encounter Results * GI - RESULT (12/01/2023) Anatomical Region Laterality Modality Other us Provider Scanning Final Result documented in this encounter Visit Diagnoses Not on filedocumented in this encounter Additional Health Concerns Infection Onset Date Last Indicated Resolved Time COVID: Suspected 01/28/2024 01/28/2024 01/28/2024 9:32 AM CDT COVID: Suspected 01/30/2024 01/30/2024 01/30/2024 9:12 AM CDT documented as of this encounter Care Teams Schedule Analyst Relationship Specialty Start Date End Date Desiree Moody MD [address] [place] [address] PCP - General Internal Medicine 01/30/19 Romel Marrero MD [address] [facility] [address]ST[address] [place] [address] Consulting Physician Pulmonary Disease 06/16/19 Vladislav Nieves MD [address] [facility] [address] [place] [address] Consulting Physician Sleep Medicine 06/16/19 Nakul Fisher MD [address] [facility] [address] [place] [address] Referring Physician Obstetrics and Gynecology 06/16/19 Juan Noyola MD [address] [place] [address] Referring Physician Gastroenterology 06/16/19 Dylan Christine, YOU [address] [place] [address] Consulting Physician Podiatry 07/19/24 documented as of this encounter
--- OUTSIDE RECORDS SUMMARY | 2024-12-02 09:57 | XMS_ITS | Continuity of Care Document ---
Author Organization [facility] Address [address] [place] [address] Phone Care Team Providers Care Salesperson Burial Plots Name Role Phone Janene Ortiz DO Unavailable Unavailable Allergies, Adverse Reactions, Alerts Substance Reaction Status Criticality Penicillins Unknown Active No Information Procedures Procedure Date Special Narrative Report Supplemental Report Office/outpatient visit,est, mod 2015 Supplemental Report Office/outpatient visit,est, mod 2015 Supplemental Report Office/outpatient visit,est, mod 2015 Supplemental Report Office/outpatient visit,est, mod 2015 Office/outpatient visit,new, mod 2015 Advance Directives Directive Yes / No Effective Date File Name No Information Encounters Encounter Description Practice Location Reason(s) For Visit Diagnoses Date Provider Providers Copied on Encounter [facility], [address], [id number], [place] tel:[phone] Crowd[employer] No Information Diana Watters. [address] [facility], [address], [place], [place], [id number] , [place]. tel: [phone] Office/outpat ient visit,est, mod [facility], [address] [place] [address], [place], [place], [id number], [place] tel:[phone] Crowd[employer] cervical thoracic lumbar abdomen (chief complaint) Sprain of ligaments of cervical spine, subsequent encounterSprain of ligaments of thoracic spine, subsequent encounterSprain of ligaments of lumbar spine, subsequent encounter 6 Diana Watters. [address] [facility], [address] [place] [address], [id number] , [place]. tel: [phone] Office/outpat ient visit,est, [facility], [address] [place] [address], [id number], [place] [phone] [facility] Follow Up of Cervical, thoracic, lumbar & chest (chief complaint) Sprain of ligaments of cervical spine, subsequent encounterSprain of ligaments of lumbar spine, subsequent encounterSprain of ligaments of thoracic spine, subsequent encounterStrain of fascia of abdomen, subsequent encounter 6 Diana Watters. [address] [facility], [place] [address], [place], [place], [id number] , [place]. tel: [phone] Office/outpat ient visit,est, [facility], [address] [place] [address], [id number], [place] [phone] [facility] Follow Up of Cervical, thoracic, lumbar, chest and left (chief complaint) Sprain of ligaments of cervical spine, subsequent encounterSprain of ligaments of lumbar spine, subsequent encounterSprain of ligaments of thoracic spine, subsequent encounterStrain of fascia of abdomen, subsequent encounter 6 Diana Watters. [address] [facility], [address], [id number] , [place]. tel: [phone] Office/outpat ient visit,est, [facility], [address] [place] [address], [id number], [place] [phone] [facility] Follow Up of Cervical, Thoracic, Lumbar, chest & left a (chief complaint) Sprain of ligaments of cervical spine, subsequent encounterSprain of ligaments of lumbar spine, subsequent encounterSprain of ligaments of thoracic spine, subsequent encounterStrain of fascia of abdomen, subsequent encounter 6 Diana Watters. [address] [facility], [address], [id number] , [place]. tel: [phone] Office/outpat ient visit,new, mod [facility], [address] [facility], [place], [place], [id number], [place] tel:[phone] [facility] Cervical (chief complaint) Sprain of ligaments of cervical spine, initial encounterSprain of ligaments of lumbar spine, initial encounterSprain of ligaments of thoracic spine, initial encounterStrain of muscle of abdomen, initial encounter Jul- 6 Diana Watters. [address] [facility], [address], [place], [place], [id number] , [place]. tel: [phone] Family History Family Member Type Diagnosis Age At Onset Maternal aunt Problem (finding) Cancer, unknown Maternal grandmother Problem (finding) Diabetes mellit Payers Payer name Insurance type Covered democrat ID Nilson hamilton(s) Corporate Claims Management [id number] Social History Type Description Quantity Date Captured Comments Sex Female Smoking Status No Information Chief Complaint And Reason For Visit No Information Reason For Referral Reason For Referral No Information History Of Present Illness Encounter Date Complaint History Of Prese nt Illness cervical thoracic lumbar abdomen Follow Up of Cervica l, thoracic, lumbar & chest Cervical, thoracic, lumbar, chest and left Follow Up of Cervica l, thoracic, lumbar, chest and left Cervical, Thoracic, Lumbar, chest & left a Follow Up of Cervica l, Thoracic, Lumbar, chest & left a Cervical patient complain s of cervical, thoracic, lumbar, left arm & lower abdominal pain Functional Status Date Functional Assessmen t No Information Instructions Date Instruction Additional Infor mation No Information Assessments Type Assessment Date No Information Patient Care Teams Name Effective Dates (start - stop) Status Members No Information
--- OUTSIDE RECORDS SUMMARY | 2024-12-02 09:57 | XMS_ITS | Encounter Summary ---
Author Organization [facility] Facility Care Team Providers Care Utility Aircrewman Name Role Phone Desiree Moody MD Primary Care Provider + [phone] Sushil Ching MD Unavailable [phone] Romel Marrero MD Unavailable [phone] Vladislav Nieves MD Unavailable [phone] Nakul Fisher MD Unavailable [phone] Juan Noyola MD Unavailable [phone] Dylan Christine DPM Unavailable [phone] Encounter Details Date Type Department Care Team (Latest Contact Info) Description 06/27/2016 Orders Only [facility] Provider, MD Letitia [address] [place] [address] Social History Tobacco Use Types Packs/Day Years Used Date Smoking Tobacco: Never Assessed Comments Unknown Sex and Gender Information Value Date Recorded Sex Assigned at Not on file Legal Sex Female 10:22 PM 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 us Historical Provider Final Res ult documented in this encounter Visit Diagnoses Not on filedocumented in this encounter Additional Health Concerns Infection Onset Date Last Indicated Resolved Time COVID: Suspected 05/01/2021 05/01/2021 05/02/2021 6:18 AM CDT COVID: Suspected 10/22/2022 10/22/2022 10/22/2022 1:29 PM MICROSOFT WINDOWS ENGINEER COVID: Suspected 10/22/2022 10/22/2022 10/22/2022 7:35 PM MICROSOFT WINDOWS ENGINEER COVID: Suspected 03/11/2023 03/11/2023 03/11/2023 2:26 PM CDT COVID: Suspected 03/11/2023 03/11/2023 03/11/2023 8:42 PM CDT COVID: Suspected 11/05/2023 11/05/2023 11/05/2023 2:38 PM MICROSOFT WINDOWS ENGINEER COVID: Suspected 01/28/2024 01/28/2024 01/28/2024 9:32 AM CDT COVID: Suspected 01/30/2024 01/30/2024 01/30/2024 9:12 AM CDT documented as of this encounter Care Teams Utility Aircrewman Relationship Specialty Start Date End Date Desiree Moody MD [address] [place] [address] PCP - General Internal Medicine 01/30/19 Sushil Ching MD [address] [place] [address] Consulting Physician Otolaryngology 06/16/19 07/08/22 Romel Marrero MD [address] [place] [address] Consulting Physician Pulmonary Disease 06/16/19 Vladislav Nieves MD 4600 [facility] 200 [place] [address] Consulting Physician Sleep Medicine 06/16/19 Nakul Fisher MD [address] [facility] 301 [place] [address] Referring Physician Obstetrics and Gynecology 06/16/19 Juan Noyola MD [address] [place] [address] Referring Physician Gastroenterology 06/16/19 Dylan Christine, DPM [address] [place] [address] Consulting Physician Podiatry 07/19/24 documented as of this encounter
--- OUTSIDE RECORDS SUMMARY | 2024-12-02 09:57 | XMS_ITS | Encounter Summary ---
Author Organization [facility] Facility Care Team Providers Care Veterinary Technician Name Role Phone Desiree Moody MD Primary Care Provider + [phone] Sushil Ching MD Unavailable [phone] Romel Marrero MD Unavailable [phone] Vladislav Nieves MD Unavailable [phone] Nakul Fisher MD Unavailable [phone] Juan Noyola MD Unavailable [phone] Dylan Christine DPM Unavailable [phone] Encounter Details Date Type Department Care Team (Latest Contact Info) Description 08/05/2015 Orders Only [facility] Provider, MD Letitia [address] [place] [address] Social History Tobacco Use Types Packs/Day Years Used Date Smoking Tobacco: Never Assessed Comments Unknown Sex and Gender Information Value Date Recorded Sex Assigned at Not on file Legal Sex Female 10:22 PM SCIENTIFIC RESEARCH ASSOCIATE Gender Identity Not on file Sexual Orientation Not on file documented as of this encounter Plan of Treatment Not on file documented as of this encounter Procedures Procedure Name Priority Date/Time Associated Diagnosis Comments SCAN - LABS 06/19/2016 12:00 AM CDT documented in this encounter Results * SCAN - LABS (06/19/2016 12:00 AM CDT) Narrative 06/19/2016 12:00 AM CDT Ordered by an unspecified provider. us Historical Provider Final Res ult documented in this encounter Visit Diagnoses Not on filedocumented in this encounter Additional Health Concerns Infection Onset Date Last Indicated Resolved Time COVID: Suspected 05/01/2021 05/01/2021 05/02/2021 6:18 AM CDT COVID: Suspected 10/22/2022 10/22/2022 10/22/2022 1:29 PM SCIENTIFIC RESEARCH ASSOCIATE COVID: Suspected 10/22/2022 10/22/2022 10/22/2022 7:35 PM SCIENTIFIC RESEARCH ASSOCIATE COVID: Suspected 03/11/2023 03/11/2023 03/11/2023 2:26 PM CDT COVID: Suspected 03/11/2023 03/11/2023 03/11/2023 8:42 PM CDT COVID: Suspected 11/05/2023 11/05/2023 11/05/2023 2:38 PM SCIENTIFIC RESEARCH ASSOCIATE COVID: Suspected 01/28/2024 01/28/2024 01/28/2024 9:32 AM CDT COVID: Suspected 01/30/2024 01/30/2024 01/30/2024 9:12 AM CDT documented as of this encounter Care Teams Veterinary Technician Relationship Specialty Start Date End Date Desiree Moody MD [address] [place] [address] PCP - General Internal Medicine 01/30/19 Sushil Ching MD [address] [place] [address] Consulting Physician Otolaryngology 06/16/19 07/08/22 Romel Marrero MD [address] [place] [address] Consulting Physician Pulmonary Disease 06/16/19 Vladislav Nieves MD 46[address] [facility] 200 [place] [address] Consulting Physician Sleep Medicine 06/16/19 Nakul Fisher MD [address] [facility] 301 [place] [address] Referring Physician Obstetrics and Gynecology 06/16/19 Juan Noyola MD 50[address] [place] [address] Referring Physician Gastroenterology 06/16/19 Dylan Christine, DPM [address] [place] [address] Consulting Physician Podiatry 07/19/24 documented as of this encounter
--- OUTSIDE RECORDS SUMMARY | 2024-12-02 09:57 | XMS_ITS | Encounter Summary ---
Author Organization [facility] Facility Care Team Providers Care Manager Project Name Role Phone Desiree Moody MD Primary Care Provider + [phone] Sushil Ching MD Unavailable [phone] Romel Marrero MD Unavailable [phone] Vladislav Nieves MD Unavailable [phone] Nakul Fisher MD Unavailable [phone] Juan Noyola MD Unavailable [phone] Dylan Christine DPM Unavailable [phone] Encounter Details Date Type Department Care Team (Latest Contact Info) Description 12/25/2016 Orders Only [facility]IN[facility] Provider, MD Letitia [address] [place] [address] Social History Tobacco Use Types Packs/Day Years Used Date Smoking Tobacco: Never Assessed Comments Unknown Sex and Gender Information Value Date Recorded Sex Assigned at Not on file Legal Sex Female 10:22 PM ELEMENTARY ELL 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 us Historical Provider Final Res ult documented in this encounter Visit Diagnoses Not on filedocumented in this encounter Additional Health Concerns Infection Onset Date Last Indicated Resolved Time COVID: Suspected 05/01/2021 05/01/2021 05/02/2021 6:18 AM CDT COVID: Suspected 10/22/2022 10/22/2022 10/22/2022 1:29 PM ELEMENTARY ELL TEACHER COVID: Suspected 10/22/2022 10/22/2022 10/22/2022 7:35 PM ELEMENTARY ELL TEACHER COVID: Suspected 03/11/2023 03/11/2023 03/11/2023 2:26 PM CDT COVID: Suspected 03/11/2023 03/11/2023 03/11/2023 8:42 PM CDT COVID: Suspected 11/05/2023 11/05/2023 11/05/2023 2:38 PM ELEMENTARY ELL TEACHER COVID: Suspected 01/28/2024 01/28/2024 01/28/2024 9:32 AM CDT COVID: Suspected 01/30/2024 01/30/2024 01/30/2024 9:12 AM CDT documented as of this encounter Care Teams Manager Project Relationship Specialty Start Date End Date Desiree Moody MD [address] [place] [address] PCP - General Internal Medicine 01/30/19 Sushil Ching MD [address] [place] [address] Consulting Physician Otolaryngology 06/16/19 07/08/22 Romel Marrero MD [address] [place] [address] Consulting Physician Pulmonary Disease 06/16/19 Vladislav Nieves MD [address] [facility] 200 [place] [address] Consulting Physician Sleep Medicine 06/16/19 Nakul Fisher MD [address] [facility] 301 [place] [address] Referring Physician Obstetrics and Gynecology 06/16/19 Juan Noyola MD 5023 [place] [address] Referring Physician Gastroenterology 06/16/19 Dylan Christine, DPM 4905 [place] [address] Consulting Physician Podiatry 07/19/24 documented as of this encounter
--- OUTSIDE RECORDS SUMMARY | 2024-12-02 09:57 | XMS_ITS | Encounter Summary ---
Author Organization [facility] Facility Care Team Providers Care General Dentist Name Role Phone Desiree Moody MD Primary Care Provider + [phone] Sushil Ching MD Unavailable [phone] Romel Marrero MD Unavailable [phone] Vladislav Nieves MD Unavailable [phone] Nakul Fisher MD Unavailable [phone] Juan Noyola MD Unavailable [phone] Dylan Christine DPM Unavailable [phone] Encounter Details Date Type Department Care Team (Latest Contact Info) Description 10/28/2013 Orders Only [facility] CLINCONV Provider, MD Letitia [address] [place] [address] Social History Tobacco Use Types Packs/Day Years Used Date Smoking Tobacco: Never Assessed Comments Unknown Sex and Gender Information Value Date Recorded Sex Assigned at Not on file Legal Sex Female 10:22 PM ANIMAL DAYCARE PROVIDER Gender Identity Not on file Sexual Orientation [...] COVID: Suspected 10/22/2022 10/22/2022 10/22/2022 1:29 PM ANIMAL DAYCARE PROVIDER COVID: Suspected 10/22/2022 10/22/2022 10/22/2022 7:35 PM ANIMAL DAYCARE PROVIDER COVID: Suspected 03/11/2023 03/11/2023 03/11/2023 2:26 PM CDT COVID: Suspected 03/11/2023 03/11/2023 03/11/2023 8:42 PM CDT COVID: Suspected 11/05/2023 11/05/2023 11/05/2023 2:38 PM ANIMAL DAYCARE PROVIDER COVID: Suspected 01/28/2024 01/28/2024 01/28/2024 9:32 AM CDT COVID: Suspected 01/30/2024 01/30/2024 01/30/2024 9:12 AM CDT documented as of this encounter Care Teams General Dentist Relationship Specialty Start Date End Date Desiree Moody MD [address] [place] [address] PCP - General Internal Medicine 01/30/19 Sushil Ching MD [address] [place] [address] Consulting Physician Otolaryngology 06/16/19 07/08/22 Romel Marrero MD [address] [place] [address] Consulting Physician Pulmonary Disease 06/16/19 Vladislav Nieves MD [address] [facility] 200 [place] [address] Consulting Physician Sleep Medicine 06/16/19 Nakul Fisher MD [address] [facility] 301 [place] [address] Referring Physician Obstetrics and Gynecology 06/16/19 Juan Noyola MD 50[address] [place] [address] Referring Physician Gastroenterology 06/16/19 Dylan Christine, DPM 4905 [place] [address] Consulting Physician Podiatry 07/19/24 documented as of this encounter
--- OUTSIDE RECORDS SUMMARY | 2024-12-02 09:57 | XMS_ITS | Encounter Summary ---
Author Organization [facility] Facility Care Team Providers Care Wrong Address Clerk Name Role Phone Desiree Moody MD Primary Care Provider + [phone] Sushil Ching MD Unavailable [phone] Romel Marrero MD Unavailable [phone] Vladislav Nieves MD Unavailable [phone] Nakul Fisher MD Unavailable [phone] Juan Noyola MD Unavailable [phone] Dylan Christine DPM Unavailable [phone] Encounter Details Date Type Department Care Team (Latest Contact Info) Description 06/20/2016 Orders Only [facility] CLINCONV Provider, MD Letitia [address] [place] [address] Social History Tobacco Use Types Packs/Day Years Used Date Smoking Tobacco: Never Assessed Comments Unknown Sex and Gender Information Value Date Recorded Sex Assigned at Not on file Legal Sex Female 10:22 PM 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 us Historical Provider Final Res ult documented in this encounter Visit Diagnoses Not on filedocumented in this encounter Additional Health Concerns Infection Onset Date Last Indicated Resolved Time COVID: Suspected 05/01/2021 05/01/2021 05/02/2021 6:18 AM CDT COVID: Suspected 10/22/2022 10/22/2022 10/22/2022 1:29 PM HANDCREW FOREMAN COVID: Suspected 10/22/2022 10/22/2022 10/22/2022 7:35 PM HANDCREW FOREMAN COVID: Suspected 03/11/2023 03/11/2023 03/11/2023 2:26 PM CDT COVID: Suspected 03/11/2023 03/11/2023 03/11/2023 8:42 PM CDT COVID: Suspected 11/05/2023 11/05/2023 11/05/2023 2:38 PM HANDCREW FOREMAN COVID: Suspected 01/28/2024 01/28/2024 01/28/2024 9:32 AM CDT COVID: Suspected 01/30/2024 01/30/2024 01/30/2024 9:12 AM CDT documented as of this encounter Care Teams Wrong Address Clerk Relationship Specialty Start Date End Date Desiree Moody MD [address] [place] [address] PCP - General Internal Medicine 01/30/19 Sushil Ching MD [address] [place] [address] Consulting Physician Otolaryngology 06/16/19 07/08/22 Romel Marrero MD [address] [place] [address] Consulting Physician Pulmonary Disease 06/16/19 Vladislav Nieves MD [address] [facility] 200 [place] [address] Consulting Physician Sleep Medicine 06/16/19 Nakul Fisher MD [address] [facility] 301 [place] [address] Referring Physician Obstetrics and Gynecology 06/16/19 Juan Noyola MD 50[address] [place] [address] Referring Physician Gastroenterology 06/16/19 Dylan Christine, DPM 4905 [place] [address] Consulting Physician Podiatry 07/19/24 documented as of this encounter
--- OUTSIDE RECORDS SUMMARY | 2024-12-02 09:58 | XMS_ITS | Continuity of Care Document ---
Author Organization [facility] Address [address] [place] [address] Phone Care Team Providers Care Supervisor Brake Repair Name Role Phone Janene Ortiz DO Unavailable [...] Date Provider Providers Copied on Encounter [facility], [address], [id number], [place] tel:[phone] [employer] No Information Diana Watters. [address] [facility], [address], [place], [place], [id number] , [place]. tel: [phone] Office/outpat ient visit,est, mod [facility], [address] [place] [address], [place], [place], [id number], [place] tel:[phone] [employer] Windows cervical thoracic lumbar abdomen (chief complaint) Sprain of ligaments of cervical spine, subsequent encounterSprain of ligaments of thoracic spine, subsequent encounterSprain of ligaments of lumbar spine, subsequent encounter 6 Diana Watters. [address] [facility], [address] [place] [address], [id number] , [place]. tel: [phone] Office/outpat ient visit,est, [facility], [address] [place] [address], [id number], [place] [phone] [facility] Follow Up of Cervical, thoracic, lumbar & chest (chief complaint) Sprain of ligaments of cervical spine, subsequent encounterSprain of ligaments of lumbar spine, subsequent encounterSprain of ligaments of thoracic spine, subsequent encounterStrain of fascia of abdomen, subsequent encounter 6 Diana Watters. [address] [facility], [place] [address], [place], [place], [id number] , [place]. tel: [phone] Office/outpat ient visit,est, [facility], [address] [place] [address], [id number], [place] [phone] [facility] Follow Up of Cervical, thoracic, lumbar, chest and left (chief complaint) Sprain of ligaments of cervical spine, subsequent encounterSprain of ligaments of lumbar spine, subsequent encounterSprain of ligaments of thoracic spine, subsequent encounterStrain of fascia of abdomen, subsequent encounter 6 Diana Watters. [address] [facility], [address], [id number] , [place]. tel: [phone] Office/outpat ient visit,est, [facility], [address] [place] [address], [id number], [place] [phone] [facility] Follow Up of Cervical, Thoracic, Lumbar, chest & left a (chief complaint) Sprain of ligaments of cervical spine, subsequent encounterSprain of ligaments of lumbar spine, subsequent encounterSprain of ligaments of thoracic spine, subsequent encounterStrain of fascia of abdomen, subsequent encounter 6 Diana Watters. [address] [facility], [address], [id number] , [place]. tel: [phone] Office/outpat ient visit,new, mod [facility], [address] [facility] [address], [place], [place], [id number], [place] tel:[phone] [facility] Cervical (chief complaint) Sprain of ligaments of cervical spine, initial encounterSprain of ligaments of lumbar spine, initial encounterSprain of ligaments of thoracic spine, initial encounterStrain of muscle of abdomen, initial encounter Jul- 6 Diana Watters. [address] [facility], [address], [place], [place], [id number] , [place]. tel: [phone] Family History Family Member Type Diagnosis Age At Onset Maternal aunt Problem (finding) Cancer, unknown Maternal grandmother Problem (finding) Diabetes mellit Payers Payer name Insurance type Covered democrat ID Nilson hamilton(s) Corporate Claims Management [id number] Social History Type Description Quantity Date Captured [...]
== END 2024-11-28 10:22 | disposition home or self-care (01) ==
PROVIDERS: Emergency Medicine; Emergency Provider Emergency Medicine
DX: U07.1 COVID-19 (principal); H66.93 Otitis media, unspecified, bilateral
CPT/HCPCS: 71045; 87651; 94640; 99283; A9270

== ENCOUNTER 2025-02-26 07:43 | Outpatient (CLI) | payer OTHER, SELFPAY ==
--- NOTE | ~2025-02-26 | MM_ITS ---
EXAMINATION: MM screening bashir BI w scott HISTORY: Screening TECHNIQUE: Craniocaudal and mediolateral oblique 3-D tomosynthesis images were obtained and synthetic 2-D images were generated. CAD analysis was submitted and interpreted. COMPARISON: No prior mammogram is available for comparison at this institution. BREAST PARENCHYMAL COMPOSITION: Not dense: There are scattered areas of fibroglandular density. FINDINGS: There is no evidence of suspicious mass, calcification, or architectural distortion to sugg est malignancy in either breast. There has been no suspicious interval change. IMPRESSION: 1. No mammographic evidence of malignancy. 2. Recommend routine screening mammography in one year. BI-RADS Category 1: Negative Reviewed, dictated and finalized at location A.
== END 2025-02-26 07:44 | disposition home or self-care (01) ==
PROVIDERS: PCP Internal Medicine; Visit Provider Obstetrics & Gynecology
DX: Z12.31 Encounter for screening mammogram for malignant neoplasm of breast (principal)
CPT/HCPCS: 77063; 77067

== ENCOUNTER 2025-03-19 06:28 | Emergency (ER) | payer OTHER, SELFPAY ==
[2025-03-19] VITALS (10 sets, daily range): BP systolic 117–136; BP diastolic 67–78; PULSE 65–98; RESP 14–20; TEMP 36.8; O2SAT 97–100
--- NOTE | ~2025-03-19 | CT_ITS ---
EXAMINATION: CT abdomen pelvis w con DATE: 03/19/2025 09:39 INDICATION: Right abdominal pain TECHNIQUE: Computed tomography (CT) of the abdomen and pelvis was performed with 100 mL Omnipaque-350 intravenous contrast. Automated exposure control and iterative reconstruction technique were employe d. The dose-length product was 650.44 mGy-cm. COMPARISON: 02/20/2013 FINDINGS: Mild dependent atelectasis in bilateral lower lobes. Heart size is normal. No pericardial or pleural effusion. Small sliding-type hiatal hernia. Diverticulum at the gastric fundus. Liver, gallbladder, s pleen, pancreas, bilateral adrenal glands and kidneys are normal. There is mild colonic diverticulosi s with a sigmoid predominance. There is no adjacent inflammatory change to suggest diverticulitis. Small bowel and appendix are normal. Bladder, anteverted uterus and right adnexa are unremarkable. 2 cm left ovarian cyst/follicle. 1.4 cm nabothian cyst at the cervix. No free intraperitoneal gas or fl uid. No pathologically enlarged abdominal or pelvic lymphadenopathy. Mild to moderate lower lumbar pr edominant facet osteoarthritis. IMPRESSION: 1. No acute intra-abdominal/pelvic process. Reviewed, dictated and finalized at location A.
--- OUTSIDE RECORDS SUMMARY | 2025-03-19 06:31 | XMS_ITS | Referral Summary ---
Author Organization [facility] Address [address] [place] [address] Care Team Providers Care Cloud Consultant Name Role Phone Desiree Moody MD Primary Care Provider [phone] Roeml Marrero MD Unavailable [phone] Vladislav Nieves MD Unavailable [phone] Nakul Fisher MD Unavailable [phone] Juan Noyola MD Unavailable [phone] Dylan Christine DPM Unavailable [phone] Encounters Date Type Department Care Team Description 03/16/2025 8:00 AM CDT Office Visit [facility] Pul[facility] [facility] [address] [place] [address] Vladislav Nieves MD MONIQUE on CPAP (Primary Dx); Cough variant asthma; Non-seasonal allergic rhinitis due to pollen; Psychophysiological insomnia; Primary narcolepsy without cataplexy; Nonsmoker; Teeth grinding; BMI 36.0-36.9,adult 01/14/2025 Orders Only [facility] Health Information Management [address] [place] [address] Scanning, Provider from Last 3 Months Allergies Active Allergy Reactions Criticality Noted Date Comments Metronidazole Hives Medium 06/16/2019 Nsaids (Non-Steroidal Anti-Inflammatory Drug) Stomach upset Low 11/17/2016 GI upset Penicillins Rash Medium 11/17/2016 Reaction: Rash, Rash Shrimp Rash Medium 03/18/2019 rash, swelling [...] Active Problems Problem Noted Date Diagnosed Date BMI 36.0-36.9,adult 12/08/2024 Allergy to shellfish 07/19/2024 Assessment & Plan [...] cancer Cont annual mammogram screenings Cont under PARKER Work on wt loss Assessment & Plan (04/12/2024 5:16 PM CDT): At risk for breast cancer Work on wt loss Diverticulitis of colon 08/26/2023 Overview (08/26/2023): 06/2012 flare up, Dr Noyola GI 08/19/2023 flare up, in ER, CT confirmed, did ff up with Dr Noyola Assessment & Plan (08/26/2023 10:34 AM CDT): 2011 flare up, Dr Noyola GI 08/19/2023 flare up, in [...] better Assessment & Plan (12/31/2022 10:47 AM MANAGER MATERIAL): Moderate depression Refer to a counselor Check [...] counseling Assessment & Plan (12/31/2022 10:43 AM MANAGER MATERIAL): Check TSH and free T4 Start lexapro [...] Not covid related Since 12/2019 Hx of deborah denney removed nasal passage Dr Erick Gifford in 12/2020 Assessment & Plan (07/09/2022 8:22 AM CDT): Permanent Learn to adjust Altered taste and smell as well Not covid related Since 12/2019 Hx of deborah denney removed nasal passage Dr Erick Gifford in 12/2020 Class 1 obesity due to exces s calories without serious comorbidity with body mass index (BMI) of 34.0 to 34.9 in adult 07/05/2021 Assessment & Plan (07/19/2024 8:14 AM CDT): Work on wt loss Due to wait at risk for complications from most illnesses Assessment & Plan (11/05/2023 2:23 PM MANAGER MATERIAL): Work on wt loss Due to wait [...] please contact the office. I strongly encourage [employer] sign ups. It can facilitate communication flow. [...] and establishing or updating healthcare power of dna sequencing associate document and providing our office with a [...] H2O Assessment & Plan (12/31/2022 10:46 AM MANAGER MATERIAL): Compliance poor Start using CPAP more regularlyl [...] Overview (03/18/2019): since childbirth Sickle cell trait 03/26/2016 Assessment & Plan (07/19/2024 7:36 AM [...] ff up with Dr Noyola Trigger: ? Pequea, nuts Ovarian cyst 03/26/2016 Resolved Problems Problem [...] hydration. Assessment & Plan (11/05/2023 2:36 PM MANAGER MATERIAL): Prob covid as well since son is [...] IMMEDIATELY. Assessment & Plan (10/22/2022 2:00 PM MANAGER MATERIAL): Rapid covid and flu negative PCR pending [...] 07/09/2022 Assessment & Plan (01/07/2022 2:07 PM MANAGER MATERIAL): Cont doxycline, refill if needed Add flonase ns Add prednisone Cont Inhaler Cont tessalon perles Nasal saline every four hours over the counter, prescriptions sent to pharmacy, may use over the counter allergy or sinus medication, Maintain adequate fluid intake. May use [id number] acetaminophen or ibuprofen. Medication instructions were provided to the patient. The risks and benefits of the treatment plan were discussed with the patient. Signs and symptoms of emergency were discussed with the patient. Minimize close contact with other individuals. Nasal mass 12/18/2020 07/09/2022 Acute pancreatitis 03/26/2016 9 Immunizations Immunization Administration Dates Next Due DTP 08/23/1987, 7,10/17/1978,10/17,10/12/1974,10/12/1974,06/23/1974 [...] often do you have a drink containing alc ohol? Never 12/08/2024 Average Number of Drinks Not on file 025 Frequency of Binge Drinking Not on file 11/11 PHQ-2 Answer Date Recorded PHQ-2 Total Score (If total score is 3 or more points, staff should administer the PHQ-9) 3 07/19/2024 PHQ-9 Answer Date Recorded PHQ-9 Total Score 12 07/19/2024 Personal Safety Answer Date Recorded Have you ever been in or are you currently in a harmful physical or emotional relationship or is someone making you feel afraid or unsafe? 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[employer] Not on file Not on file N ot on file Last Filed Vital Signs Vital Sign Reading Time Taken Comments Blood Pressure 128/54 03/16/2025 7:50 AM CDT Pulse 86 03/16/2025 7:50 AM CDT Temperature 36.9 C (98.4 F) 03/16/2025 7:50 AM CDT Respiratory Rate 18 03/16/2025 7:50 AM CDT Oxygen Saturation 98% 03/16/2025 7:50 AM CDT Inhaled Oxygen Concentration - - Weight 95.7 kg (211 lb) 03/16/2025 7:50 AM CDT Height 162.6 cm (5' 4 ) 03/16/2025 7:50 AM CDT Body Mass Index 36.22 03/16/2025 7:50 AM CDT Plan of Treatment Not on file Procedures Procedure Name Priority Date/Time Associated Diagnosis Comments GI - RESULT 01/14/2025 DIAGNOSTIC MAMMOGRAM BILATERAL W HOMER Schedule Routine, Read Routine (OP Routine) 06/10/2024 2:07 PM CDT Pain of both breasts COLONOSCOPY Routine 03/22/2022 HEPATITIS C ANTIBODY Routine 07/13/2021 12:28 PM CDT Encounter for hepatitis C screening test for low risk patient PAP SMEAR WITH HPV Routine 12/29/2018 from Last 3 Months or Most Recently Relevant to Health Maintenance Results * GI - RESULT (01/14/2025) Anatomical Region Laterality Modality Other us Provider Scanning Final Result * Diagnostic Mammogram Bilateral W Homer (06/10/2024 2:07 PM CDT) Anatomical Region Laterality Modality Breast Bilateral Mammography 06/10/2024 2:12 PM CDT Narrative 06/10/2024 2:15 PM CDT EXAM DESCRIPTION: DIAGNOSTIC MAMMOGRAM BILATERAL W HOMER REASON FOR STUDY: 48-year-old female presents for evaluation of nonfocal pain involving the lateral aspect of each breast. TECHNIQUE: CC and MLO views of the bilateral breasts were obtained with digital technique using breast tomosynthesis with C view. COMPARISON: Mammograms from [facility] ([place], [place]) dated 02/21/2024, 10/23/2022, 09/10/2021, and 09/08/2020 FINDINGS: DENSITY: The breasts have scattered areas of fibroglandular density. MAMMOGRAM FINDINGS: No suspicious masses, suspicious calcifications, or other suspicious findings are seen in either breast. There is no new suspicious finding in either breast on mammogram. IMPRESSION: 1. No suspicious finding on mammogram to account for the patient's nonfocal bilateral breast pain. Clinical follow-up is recommended. Any further evaluation regarding this pain should be based on clinical grounds. 2. No mammographic evidence of malignancy in either breast. Screening mammogram in 1 year is recommended. BIRADS: 1 Negative The patient was notified of these findings and recommendations at the time of the examination. She was offered a breast pain informational handout prior to leaving the breast center. THIS IS AN ELECTRONICALLY VERIFIED FINAL REPORT 06/10/2024 2:15 PM - Electronically signed by Clay Castro M.D., MD: Report ID: [id number] Reading Location: [facility] us Desiree Moody MD IMG MAMMO PROCEDURES Final R esult * (ABNORMAL) COLONOSCOPY (03/22/2022) Scribed Colonoscopy Abnormal Comment:5yrs us Juan Noyola MD HEALTH MAINTENANCE Final Result * Hepatitis C antibody (07/13/2021 12:28 PM CDT) Hep C Ab <0.1 0.0 - 0.9 s/co ratio [facility] - 01 Comment: Negative: < 0.8 Indeterminate: 0.8 - 0.9 Positive: > 0.9 The CDC recommends that a positive HCV antibody result be followed up with a HCV Nucleic Acid Amplification test ([id number]). Blood specimen (specimen) 07/13/2021 12:28 PM CDT 07/13/2021 Narrative [facility] - 07/14/2021 9:36 AM CDT Performed at: - [facility] [address] [id number] Roll Bucker: Dilshad Nunez PhD, Phone: [phone] Desiree Moody MD LAB MICROBIOLOGY - GENERAL O RDERABLES Final Result [facility] - 01 * PAP SMEAR WITH HPV (12/29/2018) HM Pap smear Unknown Historical Provider HEALTH MAINTENANCE Final Result from Last 3 Months or Most Recently Relevant to Health Maintenance Insurance [employer] [place] [address] [employer] Care Teams Cloud Consultant Relationship Specialty Start Date End Date Desiree Moody MD [address] [place] [address] PCP - General Internal Medicine 01/30/19 Romel Marrero MD [address] [facility] [address] [place] [address] [place] [address] Consulting Physician Pulmonary Disease 06/16/19 Vladislav Nieves MD [address] [facility] [address] [place] [address] [place] [address] Consulting Physician Sleep Medicine 06/16/19 Nakul Fisher MD [address] [address] Referring Physician Obstetrics and Gynecology 06/16/19 Juan Noyola MD [address] [place] [address] Referring Physician Gastroenterology 06/16/19 Dylan Christine, DPM [address] [facility] [address] [facility] [address] Consulting Physician Podiatry 07/19/24
--- OUTSIDE RECORDS SUMMARY | 2025-03-19 06:31 | XMS_ITS | Continuity of Care Document ---
Author Organization [facility] Address [address] [place] [address] Phone Care Team Providers Care Color Drum Worker Name Role Phone Janene Ortiz DO Unavailable [...] Date Provider Providers Copied on Encounter [facility] [address], [id number], [place] tel:[phone] [place] No Information Diana Watters. [address] [facility], [address], [place], [place], [id number] , [place]. tel: [phone] Office/outpat ient visit,est, mod [facility] [address] [place] [address], [place], [place], [id number], [place] tel:[phone] [place] cervical thoracic lumbar abdomen (chief complaint) Sprain of ligaments of cervical spine, subsequent encounterSprain of ligaments of thoracic spine, subsequent encounterSprain of ligaments of lumbar spine, subsequent encounter 6 Diana Watters. [address] [facility], [address] [place] [address], [id number] , [place]. tel: [phone] Office/outpat ient visit,est, [facility] [place] [facility], [address] [place] [address], [id number], [place] [phone] [facility] Follow Up of Cervical, thoracic, lumbar & chest (chief complaint) Sprain of ligaments of cervical spine, subsequent encounterSprain of ligaments of lumbar spine, subsequent encounterSprain of ligaments of thoracic spine, subsequent encounterStrain of fascia of abdomen, subsequent encounter 6 Diana Watters. [address] [facility], [place] [address], [place], [place], [id number] , [place]. tel: [phone] Office/outpat ient visit,est, [facility] [place] [facility], [address] [place] [address], [id number], [place] [phone] [facility] Follow Up of Cervical, thoracic, lumbar, chest and left (chief complaint) Sprain of ligaments of cervical spine, subsequent encounterSprain of ligaments of lumbar spine, subsequent encounterSprain of ligaments of thoracic spine, subsequent encounterStrain of fascia of abdomen, subsequent encounter 6 Diana Watters. [address] [facility], [address], [id number] , [place]. tel: [phone] Office/outpat ient visit,est, [facility] [place] [facility], [address] [place] [address], [id number], [place] [phone] [facility] Follow Up of Cervical, Thoracic, Lumbar, chest & left a (chief complaint) Sprain of ligaments of cervical spine, subsequent encounterSprain of ligaments of lumbar spine, subsequent encounterSprain of ligaments of thoracic spine, subsequent encounterStrain of fascia of abdomen, subsequent encounter 6 Diana Watters. [address] [facility], [address], [id number] , [place]. tel: [phone] Office/outpat ient visit,new, mod [facility], [address] [facility] [address] [address], [place], [place], [id number], [place] tel:[phone] [facility] Cervical (chief complaint) Sprain of ligaments of cervical spine, initial encounterSprain of ligaments of lumbar spine, initial encounterSprain of ligaments of thoracic spine, initial encounterStrain of muscle of abdomen, initial encounter Jul- 6 Diana Watters. [address] [facility], [address], [place], [place], [id number] , [place]. tel: [phone] Family History Family Member Type Diagnosis Age At Onset Maternal aunt Problem (finding) Cancer, unknown Maternal grandmother Problem (finding) Diabetes mellit Payers Payer name Insurance type Covered constitution party ID Nilson hamilton(s) Corporate Claims Management [id number] Social History Type Description Quantity Date Captured [...]
--- OUTSIDE RECORDS SUMMARY | 2025-03-19 06:31 | XMS_ITS | Encounter Summary ---
Author Organization [facility] Facility Care Team Providers Care Active Directory Specialist Name Role Phone Desiree Moody MD Primary Care Provider + [phone] Sushil Ching MD Unavailable [phone] Romel Marrero MD Unavailable [phone] Vladislav Nieves MD Unavailable [phone] Nakul Fisher MD Unavailable [phone] Juan Noyola MD Unavailable [phone] Dylan Christine DPM Unavailable [phone] Encounter Details Date Type Department Care Team (Latest Contact Info) Description 02/11/2017 Orders Only [facility] Provider, MD Letitia [address] [place] [address] Social History Tobacco Use Types Packs/Day Years Used Date Smoking Tobacco: Never Assessed Comments Unknown Sex and Gender Information Value Date Recorded Sex Assigned at Not on file Legal Sex Female 10:22 PM ACCOUNT ASSOCIATE Gender Identity Not on file Sexual [...] COVID: Suspected 10/22/2022 10/22/2022 10/22/2022 1:29 PM ACCOUNT ASSOCIATE COVID: Suspected 10/22/2022 10/22/2022 10/22/2022 7:35 PM ACCOUNT ASSOCIATE COVID: Suspected 03/11/2023 03/11/2023 03/11/2023 2:26 PM CDT COVID: Suspected 03/11/2023 03/11/2023 03/11/2023 8:42 PM CDT COVID: Suspected 11/05/2023 11/05/2023 11/05/2023 2:38 PM ACCOUNT ASSOCIATE COVID: Suspected 01/28/2024 01/28/2024 01/28/2024 9:32 AM CDT COVID: Suspected 01/30/2024 01/30/2024 01/30/2024 9:12 AM CDT documented as of this encounter Care Teams Active Directory Specialist Relationship Specialty Start Date End Date Desiree Moody MD [address] [place] [address] PCP - General Internal Medicine 01/30/19 Sushil Ching MD [address] [place] [address] Consulting Physician Otolaryngology 06/16/19 07/08/22 Romel Marrero MD [address] [place] [address] Consulting Physician Pulmonary Disease 06/16/19 Vladislav Nieves MD [address] [facility] [address] [place] [address] Consulting Physician Sleep Medicine 06/16/19 Nakul Fisher MD [address] [facility] [address] [place] [address] Referring Physician Obstetrics and Gynecology 06/16/19 Juan Noyola MD [address] [place] [address] Referring Physician Gastroenterology 06/16/19 Dylan Christine, DPM [address] [facility] [place] [address] Consulting Physician Podiatry 07/19/24 documented as of this encounter
--- OUTSIDE RECORDS SUMMARY | 2025-03-19 06:31 | XMS_ITS | Encounter Summary ---
Author Organization [facility] Facility Care Team Providers Care Shelf Drier Operator Name Role Phone Desiree Moody MD Primary Care Provider + [phone] Sushil Ching MD Unavailable [phone] Romel Marrero MD Unavailable [phone] Vladislav Nieves MD Unavailable [phone] Nakul Fisher MD Unavailable [phone] Juan Noyola MD Unavailable [phone] Dylan Christine DPM Unavailable [phone] Encounter Details Date Type Department Care Team (Latest Contact Info) Description 04/27/2018 Orders Only [facility] CLINCONV Provider, MD Letitia [address] [place] [address] Social History Tobacco Use Types Packs/Day Years Used Date Smoking Tobacco: Never Assessed Comments Unknown Sex and Gender Information Value Date Recorded Sex Assigned at Not on file Legal Sex Female 10:22 PM ENTRY SPECIALIST Gender Identity Not on file Sexual Orientation [...] COVID: Suspected 10/22/2022 10/22/2022 10/22/2022 1:29 PM ENTRY SPECIALIST COVID: Suspected 10/22/2022 10/22/2022 10/22/2022 7:35 PM ENTRY SPECIALIST COVID: Suspected 03/11/2023 03/11/2023 03/11/2023 2:26 PM CDT COVID: Suspected 03/11/2023 03/11/2023 03/11/2023 8:42 PM CDT COVID: Suspected 11/05/2023 11/05/2023 11/05/2023 2:38 PM ENTRY SPECIALIST COVID: Suspected 01/28/2024 01/28/2024 01/28/2024 9:32 AM CDT COVID: Suspected 01/30/2024 01/30/2024 01/30/2024 9:12 AM CDT documented as of this encounter Care Teams Shelf Drier Operator Relationship Specialty Start Date End Date Desiree Moody MD [address] [place] [address] PCP - General Internal Medicine 01/30/19 Sushil Ching MD [address] [place] [address] Consulting Physician Otolaryngology 06/16/19 07/08/22 Romel Marrero MD [address] [place] [address] Consulting Physician Pulmonary Disease 06/16/19 Vladislav Nieves MD [address] [facility] [address] [place] [address] Consulting Physician Sleep Medicine 06/16/19 Nakul Fisher MD [address] [facility] 301 [place] [address] Referring Physician Obstetrics and Gynecology 06/16/19 Juan Noyola MD [address] [place] [address] Referring Physician Gastroenterology 06/16/19 Dylan Christine, DPM [address] [facility] [place] [address] Consulting Physician Podiatry 07/19/24 documented as of this encounter
--- OUTSIDE RECORDS SUMMARY | 2025-03-19 06:31 | XMS_ITS | Clinical Summary ---
Author Organization [facility] Address [address] [place] [address] Care Team Providers Care Dental Hygienist Name Role Phone Desiree Moody MD Primary Care Provider [phone] Romel Marrero MD Unavailable [phone] Vladislav Nieves MD Unavailable [phone] Nakul Fisher MD Unavailable [phone] Juan Noyola MD Unavailable [phone] Dylan Christine DPM Unavailable [phone] Allergies Active Allergy Reactions Criticality Noted Date [...] cancer Cont annual mammogram screenings Cont under OPTION TRADER Work on wt loss Assessment & Plan [...] 13, started lexapro 10mg and counseling with uYmiko Pelayo 01/29/23 PHQ 9 - 9, GAD7 [...] better Assessment & Plan (12/31/2022 10:47 AM BIOSOLIDS MANAGEMENT TECHNICIAN): Moderate depression Refer to a counselor Check [...] counseling Assessment & Plan (12/31/2022 10:43 AM BIOSOLIDS MANAGEMENT TECHNICIAN): Check TSH and free T4 Start lexapro [...] illnesses Assessment & Plan (11/05/2023 2:23 PM BIOSOLIDS MANAGEMENT TECHNICIAN): Work on wt loss Due to wait [...] and establishing or updating healthcare power of civil rights attorney document and providing our office with [...] H2O Assessment & Plan (12/31/2022 10:46 AM BIOSOLIDS MANAGEMENT TECHNICIAN): Compliance poor Start using CPAP more regularlyl [...] ff up with Dr Noyola Trigger: ? Olema, nuts Ovarian cyst 03/26/2016 Resolved Problems Problem [...] hydration. Assessment & Plan (11/05/2023 2:36 PM BIOSOLIDS MANAGEMENT TECHNICIAN): Prob covid as well since son is [...] IMMEDIATELY. Assessment & Plan (10/22/2022 2:00 PM BIOSOLIDS MANAGEMENT TECHNICIAN): Rapid covid and flu negative PCR pending [...] 07/09/2022 Assessment & Plan (01/07/2022 2:07 PM BIOSOLIDS MANAGEMENT TECHNICIAN): Cont doxycline, refill if needed Add flonase ns Add prednisone Cont Inhaler Cont tessalon perles Nasal saline every four hours over the counter, prescriptions sent to pharmacy, may use over the counter allergy or sinus medication, Maintain adequate fluid intake. May use [id number] acetaminophen or ibuprofen. Medication instructions were provided to the patient. The risks and benefits of the treatment plan were discussed with the patient. Signs and symptoms of emergency were discussed with the patient. Minimize close contact with other individuals. Nasal mass 12/18/2020 07/09/2022 Acute pancreatitis 03/26/2016 9 Encounters Date Type Department Care Team Description 03/16/2025 8:00 AM CDT Office Visit [facility] Pulmonary [address] [place] [address] Vladislav Nieves MD MONIQUE on CPAP (Primary Dx); Cough variant asthma; Non-seasonal allergic rhinitis due to pollen; Psychophysiological insomnia; Primary narcolepsy without cataplexy; Nonsmoker; Teeth grinding; BMI 36.0-36.9,adult 01/14/2025 Orders Only [facility] Information Management [address] [place] [address] Scanning, Provider from Last 3 Months Immunizations Immunization Administration Dates Next Due DTP [...] virus) anogenital infection Obesity Sickle cell trait Anal sphincter incompetence MONIQUE (obstructive sleep apnea) Nasal mass 12/18/2020 Anxiety Infection 08-19-23 Lumbar facet arthropathy Retrolisthesis of lumbar vertebrae Family History Medical History Relation Name Comments Breast cancer [facility] Cancer [facility] GI tract and pelvc cancer Colon cancer Other 1 Malignant Neopl asm, Colon - (Added by TW Conv) Rectal cancer Other 2 Rectal Cancer - (Added by TW Conv) Anesthesia problems Neg Hx Relation Name Status Comments Father Mother Dora Maki Alive Other 1 Other 2 Social History [...] on file Legal Sex Female 10:22 PM BIOSOLIDS MANAGEMENT TECHNICIAN Gender Identity Not on file Sexual Orientation Not on file 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 COMPARISON: Mammograms from [facility] ([place], [place]) dated 02/21/2024, 10/23/2022, 09/10/2021, and 09/08/2020 [...] by Clay Castro M.D., MD: Report ID: [id number] [facility] Desiree Moody MD IMG MAMMO PROCEDURES [...] with a HCV Nucleic Acid Amplification test ([id number]). Blood specimen (specimen) 07/13/2021 12:28 PM CDT 07/13/2021 Narrative [facility] - 07/14/2021 9:36 AM CDT Performed at: - [facility] [id number] Weaving Inspector: Dilshad Nunez PhD, Phone: [phone] Desiree Moody MD LAB MICROBIOLOGY - GENERAL O RDERABLES Final Result [facility] - 01 * PAP SMEAR WITH HPV (12/29/2018) HM Pap smear Unknown Historical Provider HEALTH MAINTENANCE Final Result from Last 3 Months or Most Recently Relevant to Health Maintenance Insurance [facility] CHO[facility] PLUS [facility] PL[facility] Care Teams Dental Hygienist Relationship Specialty Start Date End Date Desiree Moody MD [address] [place] [address] PCP - General Internal Medicine 01/30/19 Romel Marrero MD [address] [facility] [address] [place] [address] Consulting Physician Pulmonary Disease 06/16/19 Vladislav Nieves MD [address] [facility] [address] [place] [address] Consulting Physician Sleep Medicine 06/16/19 Nakul Fisher MD [address] [id number] Referring Physician Obstetrics and Gynecology 06/16/19 Juan Noyola MD [address] [place] [address] Referring Physician Gastroenterology 06/16/19 Dylan Christine, DPM [address] [place] [facility] [address] [facility] [place] [address] Consulting Physician Podiatry 07/19/24
--- OUTSIDE RECORDS SUMMARY | 2025-03-19 06:31 | XMS_ITS | Encounter Summary ---
Author Organization [facility] Facility Care Team Providers Care Motion Picture Operator Name Role Phone Desiree Moody MD Primary Care Provider + [phone] Sushil Ching MD Unavailable [phone] Romel Marrero MD Unavailable [phone] Vladislav Nieves MD Unavailable [phone] Nakul Fisher MD Unavailable [phone] Juan Noyola MD Unavailable [phone] Dylan Christine DPM Unavailable [phone] Encounter Details Date Type Department Care Team (Latest Contact Info) Description 12/25/2016 Orders Only [facility] CLINCONV Provider, MD Letitia [address] [place] [address] Social History Tobacco Use Types Packs/Day Years Used Date Smoking Tobacco: Never Assessed Comments Unknown Sex and Gender Information Value Date Recorded Sex Assigned at Not on file Legal Sex Female 10:22 PM AMPHIBIOUS OPERATIONS OFFICER Gender Identity Not on file Sexual Orientation Not on file documented as of this encounter Plan of Treatment Not on file documented as of this encounter Procedures Procedure Name Priority Date/Time Associated Diagnosis Comments COLONOSCOPY - SCAN 12/25/2016 12 :00 AM AMPHIBIOUS OPERATIONS OFFICER documented in this encounter Results * COLONOSCOPY - SCAN (12/25/2016 12:00 AM AMPHIBIOUS OPERATIONS OFFICER) Narrative 12/25/2016 12:00 AM AMPHIBIOUS OPERATIONS OFFICER Ordered by an unspecified provider. us Historical Provider Final Res ult documented in this encounter Visit Diagnoses Not on filedocumented in this encounter Additional Health Concerns Infection Onset Date Last Indicated Resolved Time COVID: Suspected 05/01/2021 05/01/2021 05/02/2021 6:18 AM CDT COVID: Suspected 10/22/2022 10/22/2022 10/22/2022 1:29 PM AMPHIBIOUS OPERATIONS OFFICER COVID: Suspected 10/22/2022 10/22/2022 10/22/2022 7:35 PM AMPHIBIOUS OPERATIONS OFFICER COVID: Suspected 03/11/2023 03/11/2023 03/11/2023 2:26 PM CDT COVID: Suspected 03/11/2023 03/11/2023 03/11/2023 8:42 PM CDT COVID: Suspected 11/05/2023 11/05/2023 11/05/2023 2:38 PM AMPHIBIOUS OPERATIONS OFFICER COVID: Suspected 01/28/2024 01/28/2024 01/28/2024 9:32 AM CDT COVID: Suspected 01/30/2024 01/30/2024 01/30/2024 9:12 AM CDT documented as of this encounter Care Teams Motion Picture Operator Relationship Specialty Start Date End Date Desiree Moody MD [address] [place] [address] PCP - General Internal Medicine 01/30/19 Sushil Ching MD [address] [place] [address] Consulting Physician Otolaryngology 06/16/19 07/08/22 Romel Marrero MD [address] [place] [address] Consulting Physician Pulmonary Disease 06/16/19 Vladislav Nieves MD [address] [facility] [address] [place] [address] Consulting Physician Sleep Medicine 06/16/19 Nakul Fisher MD [address] [facility] [address] [place] [address] Referring Physician Obstetrics and Gynecology 06/16/19 Juan Noyola MD 50[address] [place] [address] Referring Physician Gastroenterology 06/16/19 Dylan Christine, DPM [address] [facility] [place] [address] Consulting Physician Podiatry 07/19/24 documented as of this encounter
--- OUTSIDE RECORDS SUMMARY | 2025-03-19 06:31 | XMS_ITS | Clinical Summary ---
Author Organization [facility] Address [address] [facility] [place] [address] Care Team Providers Care Manager Primary Care Name Role Phone Unavailable Primary Care Provider Unavailabl e Source Comments [facility],non-owned Affiliates and Associated Physician Practices is amultiple site organization consisting of ambulatory clinics and hospital sitesin [place], [place], [place] and [place]. This disclosure is being madepursuant to the Care Everywhere program and may not contain all information available regarding this patient. Last updated 18.[facility] Social History Tobacco Use Types Packs/Day Years Used Date Smoking Tobacco: Never Assessed Comments Unknown Sex and Gender Information Value Date Recorded Sex Assigned at Not on file Legal Sex Female 6:28 AM PUG MACHINE OPERATOR Gender Identity Not on file Sexual Orientation [...] SCREENING 1973 LIPID TESTING 1973 MAMMOGRAM 1973 HIV SCREENING 1988 HEPATITIS C SCREENING 12/19/1991 DTAP/TDAP/TD VACCINES (1 - Tdap) 1992 HEPATITIS B VACCINE (1 of 3 - 19+ 3-dose series) 1992 PNEUMOCOCCAL VACCINE 50+ (1 of 1 - PCV) 2023 ZOSTER VACCINE (1 of 2) 2023 COVID-19 VACCINE (2023-2 5 season) 2024 DEPRESSION SCREENING 11/10/2024 INFLUENZA VACCINE (Season Ended) 2025 HIB VACCINE Aged Out No longer eligi ble based on patient's age to complete this topic HPV VACCINE Aged Out No longer eligi ble based on patient's age to complete this topic MENINGOCOCCAL (Group B) VACC INE SHARED DECISION-MAKING Aged Out No longer eligibl e based on patient's age to complete this topic MENINGOCOCCAL GROUPS A/C/Y/W VACCINE Aged Out No longer eligible b ased on patient's age to complete this topic
--- OUTSIDE RECORDS SUMMARY | 2025-03-19 06:31 | XMS_ITS | Encounter Summary ---
Author Organization [facility] Facility Care Team Providers Care Information Tech Name Role Phone Desiree Moody MD Primary Care Provider + [phone] Sushil Ching MD Unavailable [phone] Romel Marrero MD Unavailable [phone] Vladislav Nieves MD Unavailable [phone] Nakul Fisher MD Unavailable [phone] Juan Noyola MD Unavailable [phone] Dylan Christine DPM Unavailable [phone] Encounter Details Date Type Department Care Team (Latest Contact Info) Description 03/18/2018 Orders Only [facility]IN[facility] Provider, MD Letitia [address] [place] [address] Social History Tobacco Use Types Packs/Day Years Used Date Smoking Tobacco: Never Assessed Comments Unknown Sex and Gender Information Value Date Recorded Sex Assigned at Not on file Legal Sex Female 10:22 PM HOTEL ASSISTANT GENERAL MANAGER Gender Identity Not on file Sexual Orientation [...] COVID: Suspected 10/22/2022 10/22/2022 10/22/2022 1:29 PM HOTEL ASSISTANT GENERAL MANAGER COVID: Suspected 10/22/2022 10/22/2022 10/22/2022 7:35 PM HOTEL ASSISTANT GENERAL MANAGER COVID: Suspected 03/11/2023 03/11/2023 03/11/2023 2:26 PM CDT COVID: Suspected 03/11/2023 03/11/2023 03/11/2023 8:42 PM CDT COVID: Suspected 11/05/2023 11/05/2023 11/05/2023 2:38 PM HOTEL ASSISTANT GENERAL MANAGER COVID: Suspected 01/28/2024 01/28/2024 01/28/2024 9:32 AM CDT COVID: Suspected 01/30/2024 01/30/2024 01/30/2024 9:12 AM CDT documented as of this encounter Care Teams Information Tech Relationship Specialty Start Date End Date Desiree Moody MD [address] [place] [address] PCP - General Internal Medicine 01/30/19 Sushil Ching MD [address] [place] [address] Consulting Physician Otolaryngology 06/16/19 07/08/22 Romel Marrero MD [address] [place] [address] Consulting Physician Pulmonary Disease 06/16/19 Vladislav Nieves MD [address] [facility] [address] [place] [address] Consulting Physician Sleep Medicine 06/16/19 Nakul Fisher MD [address] [facility] [address] [place] [address] Referring Physician Obstetrics and Gynecology 06/16/19 Juan Noyola MD [address] [place] [address] Referring Physician Gastroenterology 06/16/19 Dylan Christine, DPM [address] [facility] [place] [address] Consulting Physician Podiatry 07/19/24 documented as of this encounter
--- OUTSIDE RECORDS SUMMARY | 2025-03-19 06:31 | XMS_ITS | Clinical Summary ---
Author Organization [facility] Address [facility] [place] [address] Care Team Providers Care Chief Orthoptist Name Role Phone Unavailable Primary Care Provider [...] Screening with HPV 2003 Mammogram Screening 2013 Pneumococcal Vaccine: 50+ Ye ars (1 of 1 - PCV) 2023 Zoster Vaccines (1 of 2) 2023 COVID-19 Vaccine (2023-2 5 season) 2024 Meningococcal B Vaccine Aged Out No l onger eligible based on patient's age to complete this topic Meningococcal Vaccine Aged Out No isaías alea eligible based on patient's age to complete this topic RSV Immunizations Under 20 Months Aged Out No longer eligible based on patient's age to complete this topic
--- OUTSIDE RECORDS SUMMARY | 2025-03-19 06:32 | XMS_ITS | Encounter Summary ---
Author Organization [facility] Facility Care Team Providers Care Technical Information Specialist Name Role Phone Desiree Moody MD Primary Care Provider + [phone] Sushil Ching MD Unavailable +[phone] Romel Marrero MD Unavailable [phone] Vladislav Nieves MD Unavailable +[phone] Nakul Fisher MD Unavailable +[phone] Juan Noyola MD Unavailable [phone] Dylan Christine DPM Unavailable +[phone] Encounter Details Date Type Department Care Team (Latest Contact Info) Description 08/05/2015 Orders Only [facility]IN[facility] Provider, MD Letitia [address] [place] [address] Social History Tobacco Use Types Packs/Day Years Used Date Smoking Tobacco: Never Assessed Comments Unknown Sex and Gender Information Value Date Recorded Sex Assigned at Not on file Legal Sex Female 10:22 PM FACSIMILE MACHINE OPERATOR Gender Identity Not on file [...] COVID: Suspected 10/22/2022 10/22/2022 10/22/2022 1:29 PM FACSIMILE MACHINE OPERATOR COVID: Suspected 10/22/2022 10/22/2022 10/22/2022 7:35 PM FACSIMILE MACHINE OPERATOR COVID: Suspected 03/11/2023 03/11/2023 03/11/2023 2:26 PM CDT COVID: Suspected 03/11/2023 03/11/2023 03/11/2023 8:42 PM CDT COVID: Suspected 11/05/2023 11/05/2023 11/05/2023 2:38 PM FACSIMILE MACHINE OPERATOR COVID: Suspected 01/28/2024 01/28/2024 01/28/2024 9:32 AM CDT COVID: Suspected 01/30/2024 01/30/2024 01/30/2024 9:12 AM CDT documented as of this encounter Care Teams Technical Information Specialist Relationship Specialty Start Date End Date Desiree Moody MD [address] [place] [address] PCP - General Internal Medicine 01/30/19 Sushil Ching MD [address] [place] [address] Consulting Physician Otolaryngology 06/16/19 07/08/22 Romel Marrero MD [address] [place] [address] Consulting Physician Pulmonary Disease 06/16/19 Vladislav Nieves MD [address] [facility] [address] [place] [address] [place] [address] Consulting Physician Sleep Medicine 06/16/19 Nakul Fisher MD [address] [facility] 301 [place] [address] Referring Physician Obstetrics and Gynecology 06/16/19 Juan Noyola MD 5023 [place] [address] Referring Physician Gastroenterology 06/16/19 Dylan Christine, DPM [address] [facility] [place] [address] Consulting Physician Podiatry 07/19/24 documented as of this encounter
--- OUTSIDE RECORDS SUMMARY | 2025-03-19 06:32 | XMS_ITS | Encounter Summary ---
Author Organization [facility] Facility Care Team Providers Care I&C Technician Name Role Phone Desiree Moody MD Primary Care Provider + [phone] Sushil Ching MD Unavailable +[phone] Romel Marrero MD Unavailable [phone] Vladislav Nieves MD Unavailable [phone] Nakul Fisher MD Unavailable +[phone] Juan Noyola MD Unavailable [phone] Dylan Christine DPM Unavailable +[phone] Encounter Details Date Type Department Care Team (Latest Contact Info) Description 10/28/2013 Orders Only [facility] CLINCONV Provider, MD Letitia [address] [place] [address] Social History Tobacco Use Types Packs/Day Years Used Date Smoking Tobacco: Never Assessed Comments Unknown Sex and Gender Information Value Date Recorded Sex Assigned at Not on file Legal Sex Female 10:22 PM FIXER BOARDING ROOM Gender Identity Not on file Sexual Orientation [...] COVID: Suspected 10/22/2022 10/22/2022 10/22/2022 1:29 PM FIXER BOARDING ROOM COVID: Suspected 10/22/2022 10/22/2022 10/22/2022 7:35 PM FIXER BOARDING ROOM COVID: Suspected 03/11/2023 03/11/2023 03/11/2023 2:26 PM CDT COVID: Suspected 03/11/2023 03/11/2023 03/11/2023 8:42 PM CDT COVID: Suspected 11/05/2023 11/05/2023 11/05/2023 2:38 PM FIXER BOARDING ROOM COVID: Suspected 01/28/2024 01/28/2024 01/28/2024 9:32 AM CDT COVID: Suspected 01/30/2024 01/30/2024 01/30/2024 9:12 AM CDT documented as of this encounter Care Teams I&C Technician Relationship Specialty Start Date End Date Desiree Moody MD [address] [place] [address] PCP - General Internal Medicine 01/30/19 Sushil Ching MD [address] [place] [address] Consulting Physician Otolaryngology 06/16/19 07/08/22 Romel Marrero MD [address] [place] [address] Consulting Physician Pulmonary Disease 06/16/19 Vladislav Nieves MD [address] [facility] [address] [place] [address] [place] [address] Consulting Physician Sleep Medicine 06/16/19 Nakul Fisher MD [address] [facility] 301 [place] [address] Referring Physician Obstetrics and Gynecology 06/16/19 Juan Noyola MD 5023 [place] [address] Referring Physician Gastroenterology 06/16/19 Dylan Christine, DPM [address] [facility] [place] [address] Consulting Physician Podiatry 07/19/24 documented as of this encounter
--- OUTSIDE RECORDS SUMMARY | 2025-03-19 06:32 | XMS_ITS | Encounter Summary ---
Author Organization [facility] Facility Care Team Providers Care Soda Fountain Clerk Name Role Phone Desiree Moody MD Primary Care Provider + [phone] Sushil Ching MD Unavailable +[phone] Romel Marrero MD Unavailable [phone] Vladislav Nieves MD Unavailable [phone] Nakul Fisher MD Unavailable [phone] Juan Noyola MD Unavailable [phone] Dylan Christine DPM Unavailable [phone] Encounter Details Date Type Department Care Team (Latest Contact Info) Description 06/27/2016 Orders Only [facility] CLINCONV Provider, MD Letitia [address] [place] [address] Social History Tobacco Use Types Packs/Day Years Used Date Smoking Tobacco: Never Assessed Comments Unknown Sex and Gender Information Value Date Recorded Sex Assigned at Not on file Legal Sex Female 10:22 PM CASH APPLICATIONS REPRESENTATIVE Gender Identity Not on file Sexual Orientation [...] COVID: Suspected 10/22/2022 10/22/2022 10/22/2022 1:29 PM CASH APPLICATIONS REPRESENTATIVE COVID: Suspected 10/22/2022 10/22/2022 10/22/2022 7:35 PM CASH APPLICATIONS REPRESENTATIVE COVID: Suspected 03/11/2023 03/11/2023 03/11/2023 2:26 PM CDT COVID: Suspected 03/11/2023 03/11/2023 03/11/2023 8:42 PM CDT COVID: Suspected 11/05/2023 11/05/2023 11/05/2023 2:38 PM CASH APPLICATIONS REPRESENTATIVE COVID: Suspected 01/28/2024 01/28/2024 01/28/2024 9:32 AM CDT COVID: Suspected 01/30/2024 01/30/2024 01/30/2024 9:12 AM CDT documented as of this encounter Care Teams Soda Fountain Clerk Relationship Specialty Start Date End Date Desiree Moody MD [address] [place] [address] PCP - General Internal Medicine 01/30/19 Sushil Ching MD [address] [place] [address] Consulting Physician Otolaryngology 06/16/19 07/08/22 Romel Marrero MD [address] [place] [address] Consulting Physician Pulmonary Disease 06/16/19 Vladislav Nieves MD [address] [facility] [address] [place] [address] [place] [address] Consulting Physician Sleep Medicine 06/16/19 Nakul Fisher MD [address] [facility] 301 [place] [address] Referring Physician Obstetrics and Gynecology 06/16/19 Juan Noyola MD 5023 [place] [address] Referring Physician Gastroenterology 06/16/19 Dylan Christine, DPM [address] [facility] [place] [address] Consulting Physician Podiatry 07/19/24 documented as of this encounter
--- OUTSIDE RECORDS SUMMARY | 2025-03-19 06:32 | XMS_ITS | Encounter Summary ---
Author Organization [facility] Healthcare Address [address] [place] [address] Care Team Providers Care Photograph Tinter Name Role Phone Desiree Moody MD Primary Care Provider [phone] Romel Marrero MD Unavailable [phone] Vladislav Nieves MD Unavailable [phone] Nakul Fisher MD Unavailable [phone] Juan Noyola MD Unavailable [phone] Dylan Christine DPM Unavailable [phone] Encounter Details Date Type Department Care Team (Late st Contact Info) Description 01/14/2025 Orders Only [facility] Health Information Management [address] [place] [address] Scanning, Provider Social History Tobacco Use [...] on file Legal 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 Gender Identity Not on file Sexual Orientation Not on file 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 Not on file Not on file N ot on file documented as of this encounter Plan of Treatment Not on file documented as of this encounter Procedures Procedure Name Priority Date/Time Associated Diagnosis Comments GI - RESULT 01/14/2025 documented in this encounter Results * GI - RESULT (01/14/2025) Anatomical Region Laterality Modality Other us Provider Scanning Final Result documented in this encounter Visit Diagnoses Not on filedocumented in this encounter Care Teams Photograph Tinter Relationship Specialty Start Date End Date Desiree Moody MD [address] [place] [address] PCP - General Internal Medicine 01/30/19 Romel Marrero MD [address] [facility] [address] [place] [address] [place] [address] Consulting Physician Pulmonary Disease 06/16/19 Vladislav Nieves MD [address] [facility] [address] [place] [address] [place] [address] Consulting Physician Sleep Medicine 06/16/19 Nakul Fisher MD [address] [address] Referring Physician Obstetrics and Gynecology 06/16/19 Juan Noyola MD 5023 [place] [address] Referring Physician Gastroenterology 06/16/19 Dylan Christine, YOU [address] [facility] [place] [address] Consulting Physician Podiatry 07/19/24 documented as of this encounter
--- OUTSIDE RECORDS SUMMARY | 2025-03-19 06:32 | XMS_ITS | Encounter Summary ---
Author Organization [facility] Facility Care Team Providers Care Table Games Dealer Name Role Phone Desiree Moody MD Primary Care Provider + [phone] Sushil Ching MD Unavailable [phone] Romel Marrero MD Unavailable [phone] Vladislav Nieves MD Unavailable [phone] Nakul Fisher MD Unavailable [phone] Juan Noyola MD Unavailable [phone] Dylan Christine DPM Unavailable [phone] Encounter Details Date Type Department Care Team (Latest Contact Info) Description 06/20/2016 Orders Only [facility] CLINCONV Provider, MD Letitia [address] [place] [address] Social History Tobacco Use Types Packs/Day Years Used Date Smoking Tobacco: Never Assessed Comments Unknown Sex and Gender Information Value Date Recorded Sex Assigned at Not on file Legal Sex Female 10:22 PM SCREEN ROOM OPERATOR Gender Identity Not on file Sexual [...] COVID: Suspected 10/22/2022 10/22/2022 10/22/2022 1:29 PM SCREEN ROOM OPERATOR COVID: Suspected 10/22/2022 10/22/2022 10/22/2022 7:35 PM SCREEN ROOM OPERATOR COVID: Suspected 03/11/2023 03/11/2023 03/11/2023 2:26 PM CDT COVID: Suspected 03/11/2023 03/11/2023 03/11/2023 8:42 PM CDT COVID: Suspected 11/05/2023 11/05/2023 11/05/2023 2:38 PM SCREEN ROOM OPERATOR COVID: Suspected 01/28/2024 01/28/2024 01/28/2024 9:32 AM CDT COVID: Suspected 01/30/2024 01/30/2024 01/30/2024 9:12 AM CDT documented as of this encounter Care Teams Table Games Dealer Relationship Specialty Start Date End Date Desiree Moody MD [address] [place] [address] PCP - General Internal Medicine 01/30/19 Sushil Ching MD [address] [place] [address] Consulting Physician Otolaryngology 06/16/19 07/08/22 Romel Marrero MD [address] [place] [address] Consulting Physician Pulmonary Disease 06/16/19 Vladislav Nieves MD [address] [facility] [address] [address] [place] [address] Consulting Physician Sleep Medicine 06/16/19 Nakul Fisher MD [address] [facility] 301 [place] [address] Referring Physician Obstetrics and Gynecology 06/16/19 Juan Noyola MD 5023 [place] [address] Referring Physician Gastroenterology 06/16/19 Dylan Christine, DPM [address] [facility] [place] [address] Consulting Physician Podiatry 07/19/24 documented as of this encounter
--- OUTSIDE RECORDS SUMMARY | 2025-03-19 06:32 | XMS_ITS | Encounter Summary ---
Author Organization [facility] Facility Care Team Providers Care Dynamics Ax Technical Architect Name Role Phone Desiree Moody MD Primary Care Provider + [phone] Sushil Chnig MD Unavailable [phone] Romel Marrero MD Unavailable [phone] Vladislav Nieves MD Unavailable [phone] Nakul Fisher MD Unavailable [phone] Juan Noyola MD Unavailable [phone] Dylan Christine DPM Unavailable [phone] Encounter Details Date Type Department Care Team (Latest Contact Info) Description 05/27/2018 Orders Only [facility] CLINCONV Provider, MD Letitia [address] [place] [address] Social History Tobacco Use Types Packs/Day Years Used Date Smoking Tobacco: Never Assessed Comments Unknown Sex and Gender Information Value Date Recorded Sex Assigned at Not on file Legal Sex Female 10:22 PM 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 Gender Identity Not on file Sexual Orientation [...] COVID: Suspected 10/22/2022 10/22/2022 10/22/2022 1:29 PM 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 COVID: Suspected 10/22/2022 10/22/2022 10/22/2022 7:35 PM 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 COVID: Suspected 03/11/2023 03/11/2023 03/11/2023 2:26 PM CDT COVID: Suspected 03/11/2023 03/11/2023 03/11/2023 8:42 PM CDT COVID: Suspected 11/05/2023 11/05/2023 11/05/2023 2:38 PM 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 COVID: Suspected 01/28/2024 01/28/2024 01/28/2024 9:32 AM CDT COVID: Suspected 01/30/2024 01/30/2024 01/30/2024 9:12 AM CDT documented as of this encounter Care Teams Dynamics Ax Technical Architect Relationship Specialty Start Date End Date Desiree Moody MD [address] [place] [address] PCP - General Internal Medicine 01/30/19 Sushil Ching MD [address] [place] [address] Consulting Physician Otolaryngology 06/16/19 07/08/22 Romel Marrero MD [address] [place] [address] Consulting Physician Pulmonary Disease 06/16/19 Vladislav Nieves MD [address] [facility] [address] [place] [address] [place] [address] Consulting Physician Sleep Medicine 06/16/19 Nakul Fisher MD [address] [facility] 301 [place] [address] Referring Physician Obstetrics and Gynecology 06/16/19 Juan Noyola MD 50[address] [place] [address] Referring Physician Gastroenterology 06/16/19 Dylan Christine, DPM [address] [facility] [place] [address] Consulting Physician Podiatry 07/19/24 documented as of this encounter
--- OUTSIDE RECORDS SUMMARY | 2025-03-19 06:32 | XMS_ITS | Encounter Summary ---
Author Organization [facility] Facility Care Team Providers Care Belt Operator Name Role Phone Desiree Moody MD Primary Care Provider + [phone] Sushil Ching MD Unavailable [phone] Romel Marrero MD Unavailable [phone] Vladislav Nieves MD Unavailable [phone] Nakul Fisher MD Unavailable [phone] Juan Noyola MD Unavailable [phone] Dylan Christine DPM Unavailable [phone] Encounter Details Date Type Department Care Team (Latest Contact Info) Description 06/25/2018 Orders Only [facility] CLINCONV Provider, MD Letitia [address] [place] [address] Social History Tobacco Use Types Packs/Day Years Used Date Smoking Tobacco: Never Assessed Comments Unknown Sex and Gender Information Value Date Recorded Sex Assigned at Not on file Legal Sex Female 10:22 PM SMART 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 SPECIALIST Gender Identity Not on file Sexual [...] COVID: Suspected 10/22/2022 10/22/2022 10/22/2022 1:29 PM SMART ENERGY SPECIALIST COVID: Suspected 10/22/2022 10/22/2022 10/22/2022 7:35 PM SMART ENERGY SPECIALIST COVID: Suspected 03/11/2023 03/11/2023 03/11/2023 2:26 PM CDT COVID: Suspected 03/11/2023 03/11/2023 03/11/2023 8:42 PM CDT COVID: Suspected 11/05/2023 11/05/2023 11/05/2023 2:38 PM SMART ENERGY SPECIALIST COVID: Suspected 01/28/2024 01/28/2024 01/28/2024 9:32 AM CDT COVID: Suspected 01/30/2024 01/30/2024 01/30/2024 9:12 AM CDT documented as of this encounter Care Teams Belt Operator Relationship Specialty Start Date End Date Desiree Moody MD [address] [place] [address] PCP - General Internal Medicine 01/30/19 Sushil Ching MD [address] [place] [address] Consulting Physician Otolaryngology 06/16/19 07/08/22 Romel Marrero MD [address] [place] [address] Consulting Physician Pulmonary Disease 06/16/19 Vladislav Nieves MD [address] [facility] [address] [place] [address] [place] [address] Consulting Physician Sleep Medicine 06/16/19 Nakul Fisher MD [address] [facility] 301 [place] [address] Referring Physician Obstetrics and Gynecology 06/16/19 Juan Noyola MD [address] [place] [address] Referring Physician Gastroenterology 06/16/19 Dylan Christine, DPM [address] [facility] [place] [address] Consulting Physician Podiatry 07/19/24 documented as of this encounter
--- OUTSIDE RECORDS SUMMARY | 2025-03-19 07:31 | XMS_ITS | Clinical Summary ---
Author Organization [facility] Address [address] [place] [address] Care Team Providers Care Bridge Maintenance Worker Name Role Phone Desiree Moody MD Primary Care Provider [phone] Romel Marrero MD Unavailable [phone] Vladislav Nieves MD Unavailable [phone] Nakul Fisher MD Unavailable [phone] Juan Noyola MD Unavailable [phone] Dylan Christine DPM Unavailable [phone] Allergies Active Allergy Reactions Criticality Noted Date [...] cancer Cont annual mammogram screenings Cont under ENGINEERING PROJECT DESIGNER Work on wt loss Assessment & Plan [...] better Assessment & Plan (12/31/2022 10:47 AM TEACHER PHYSICALLY IMPAIRED): Moderate depression Refer to a counselor Check [...] counseling Assessment & Plan (12/31/2022 10:43 AM TEACHER PHYSICALLY IMPAIRED): Check TSH and free T4 Start lexapro [...] illnesses Assessment & Plan (11/05/2023 2:23 PM TEACHER PHYSICALLY IMPAIRED): Work on wt loss Due to wait [...] and establishing or updating healthcare power of real estate attorney document and providing our office [...] H2O Assessment & Plan (12/31/2022 10:46 AM TEACHER PHYSICALLY IMPAIRED): Compliance poor Start using CPAP more regularlyl [...] ff up with Dr Noyola Trigger: ? [place], nuts Ovarian cyst 03/26/2016 Resolved Problems Problem [...] hydration. Assessment & Plan (11/05/2023 2:36 PM TEACHER PHYSICALLY IMPAIRED): Prob covid as well since son is [...] IMMEDIATELY. Assessment & Plan (10/22/2022 2:00 PM TEACHER PHYSICALLY IMPAIRED): Rapid covid and flu negative PCR pending [...] 07/09/2022 Assessment & Plan (01/07/2022 2:07 PM TEACHER PHYSICALLY IMPAIRED): Cont doxycline, refill if needed Add flonase ns Add prednisone Cont Inhaler Cont tessalon perles Nasal saline every four hours over the counter, prescriptions sent to pharmacy, may use over the counter allergy or sinus medication, Maintain adequate fluid intake. May use enir-[id number] acetaminophen or ibuprofen. Medication instructions were provided to the patient. The risks and benefits of the treatment plan were discussed with the patient. Signs and symptoms of emergency were discussed with the patient. Minimize close contact with other individuals. Nasal mass 12/18/2020 07/09/2022 Acute pancreatitis 03/26/2016 9 Encounters Date Type Department Care Team Description 03/16/2025 8:00 AM CDT Office Visit [facility] Pulmonary [address] [place] [phone] Vladislav Nieves MD MONIQUE on CPAP (Primary Dx); Cough variant asthma; Non-seasonal allergic rhinitis due to pollen; Psychophysiological insomnia; Primary narcolepsy without cataplexy; Nonsmoker; Teeth grinding; BMI 36.0-36.9,adult 01/14/2025 Orders Only [facility] Health Information Management [address] [place] [address] Scanning, Provider from Last 3 Months Immunizations [...] History Relation Name Comments Breast cancer Mother [facility] Cancer Mother [facility] GI tract and pelvc cancer Colon [...] on file Legal Sex Female 10:22 PM TEACHER PHYSICALLY IMPAIRED Gender Identity Not on file Sexual Orientation Not on file 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 COMPARISON: Mammograms from [employer] ([place], [place]) dated 02/21/2024, 10/23/2022, 09/10/2021, and 09/08/2020 [...] by Clay Castro M.D., MD: Report ID: [id number] [facility] Desiree Moody MD IMG MAMMO PROCEDURES [...] with a HCV Nucleic Acid Amplification test (570020). Blood specimen (specimen) 07/13/2021 12:28 PM CDT 07/13/2021 Narrative [facility] - 07/14/2021 9:36 AM CDT Performed at: - [facility] [id number] Government Clerk: Dilshad Nunez PhD, Phone: [phone] Desiree Moody MD LAB MICROBIOLOGY - GENERAL O RDERABLES Final Result [facility] - 01 * PAP SMEAR WITH HPV (12/29/2018) HM Pap smear Unknown Historical Provider HEALTH MAINTENANCE Final Result from Last 3 Months or Most Recently Relevant to Health Maintenance Insurance [facility] CHOICE PLUS [facility] HMO/PPO Address: [facility] [address] [place] [address] [facility] CHOICE PLUS [facility] HMO/PPO Address: [place] [address] Care Teams Bridge Maintenance Worker Relationship Specialty Start Date End Date Desiree Moody MD [address] [place] [address] PCP - General Internal Medicine 01/30/19 Romel Marrero MD [address] [facility] [address] [place] [address] [place] [address] Consulting Physician Pulmonary Disease 06/16/19 Vladislav Nieves MD [address] [facility] [address] [place] [address] [place] [address] Consulting Physician Sleep Medicine 06/16/19 Nakul Fisher MD [address] [id number] Referring Physician Obstetrics and Gynecology 06/16/19 Juan Noyola MD [address] [place] [address] Referring Physician Gastroenterology 06/16/19 Dylan Christine, DPM [address] [place] [facility] [address] [place] [address] Consulting Physician Podiatry 07/19/24
--- OUTSIDE RECORDS SUMMARY | 2025-03-19 07:31 | XMS_ITS | Encounter Summary ---
Author Organization [facility] Facility Care Team Providers Care Podiatrist Assistant Name Role Phone Desiree Moody MD Primary Care Provider + [phone] Sushil Ching MD Unavailable +[phone] Romel Marrero MD Unavailable +[phone] Vladislav Nieves MD Unavailable +[phone] Nakul Fisher MD Unavailable +[phone] Juan Noyola MD Unavailable [phone] Dylan Christine DPM Unavailable +[phone] Encounter Details Date Type Department Care Team (Latest Contact Info) Description 02/11/2017 Orders Only [facility] CLINCONV Provider, MD Letitia [address] [place] [address] Social History Tobacco Use Types Packs/Day Years Used Date Smoking Tobacco: Never Assessed Comments Unknown Sex and Gender Information Value Date Recorded Sex Assigned at Not on file Legal Sex Female 10:22 PM 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 LAW JUDGE Gender Identity Not on file Sexual Orientation [...] COVID: Suspected 10/22/2022 10/22/2022 10/22/2022 1:29 PM 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 LAW JUDGE COVID: Suspected 10/22/2022 10/22/2022 10/22/2022 7:35 PM 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 LAW JUDGE COVID: Suspected 03/11/2023 03/11/2023 03/11/2023 2:26 PM CDT COVID: Suspected 03/11/2023 03/11/2023 03/11/2023 8:42 PM CDT COVID: Suspected 11/05/2023 11/05/2023 11/05/2023 2:38 PM 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 LAW JUDGE COVID: Suspected 01/28/2024 01/28/2024 01/28/2024 9:32 AM CDT COVID: Suspected 01/30/2024 01/30/2024 01/30/2024 9:12 AM CDT documented as of this encounter Care Teams Podiatrist Assistant Relationship Specialty Start Date End Date Desiree Moody MD [address] [place] [address] PCP - General Internal Medicine 01/30/19 Sushil Ching MD [address] [place] [address] Consulting Physician Otolaryngology 06/16/19 07/08/22 Romel Marrero MD [address] [place] [address] Consulting Physician Pulmonary Disease 06/16/19 Vladislav Nieves MD [address] [facility] [address] [place] [address] Consulting Physician Sleep Medicine 06/16/19 Nakul Fisher MD [address] [facility] 301 [place] [address] Referring Physician Obstetrics and Gynecology 06/16/19 Juan Noyola MD 5023 [place] [address] Referring Physician Gastroenterology 06/16/19 Dylan Christine, DPM [address] [facility] [place] [place] [address] Consulting Physician Podiatry 07/19/24 documented as of this encounter
--- OUTSIDE RECORDS SUMMARY | 2025-03-19 07:31 | XMS_ITS | Clinical Summary ---
Author Organization [facility] Address [address] [place] [address] Care Team Providers Care Director Of Residence Life Name Role Phone Unavailable Primary Care Provider Unavailabl e Source Comments [facility],non-owned Affiliates and Associated Physician Practices is amultiple site organization consisting of ambulatory clinics and hospital sitesin [place], [place], [place] and [place]. This disclosure is being madepursuant to the Care Everywhere program and may not contain all information available regarding this patient. Last updated 18.[facility] Social History Tobacco Use Types Packs/Day Years Used Date Smoking Tobacco: Never Assessed Comments Unknown Sex and Gender Information Value Date Recorded Sex Assigned at Not on file Legal Sex Female 6:28 AM MECHANICAL RESEARCH ENGINEER Gender Identity Not on file Sexual [...]
--- OUTSIDE RECORDS SUMMARY | 2025-03-19 07:31 | XMS_ITS | Encounter Summary ---
Author Organization [facility] Facility Care Team Providers Care Brim Edge Trimmer Name Role Phone Desiree Moody MD Primary Care Provider + [phone] Sushil Ching MD Unavailable +[phone] Romel Marrero MD Unavailable +[phone] Vladislav Nieves MD Unavailable [phone] Nakul Fisher MD Unavailable +[phone] Juan Noyola MD Unavailable [phone] Dylan Christine DPM Unavailable +[phone] Encounter Details Date Type Department Care Team (Latest Contact Info) Description 03/18/2018 Orders Only [facility] CLINCONV Provider, MD Letitia [address] [place] [address] Social History Tobacco Use Types Packs/Day Years Used Date Smoking Tobacco: Never Assessed Comments Unknown Sex and Gender Information Value Date Recorded Sex Assigned at Not on file Legal Sex Female 10:22 PM SAP SECURITY ARCHITECT Gender Identity Not on file Sexual Orientation [...] COVID: Suspected 10/22/2022 10/22/2022 10/22/2022 1:29 PM SAP SECURITY ARCHITECT COVID: Suspected 10/22/2022 10/22/2022 10/22/2022 7:35 PM SAP SECURITY ARCHITECT COVID: Suspected 03/11/2023 03/11/2023 03/11/2023 2:26 PM CDT COVID: Suspected 03/11/2023 03/11/2023 03/11/2023 8:42 PM CDT COVID: Suspected 11/05/2023 11/05/2023 11/05/2023 2:38 PM SAP SECURITY ARCHITECT COVID: Suspected 01/28/2024 01/28/2024 01/28/2024 9:32 AM CDT COVID: Suspected 01/30/2024 01/30/2024 01/30/2024 9:12 AM CDT documented as of this encounter Care Teams Brim Edge Trimmer Relationship Specialty Start Date End Date Desiree Moody MD [address] [place] [address] PCP - General Internal Medicine 01/30/19 Sushil Ching MD [address] [place] [address] Consulting Physician Otolaryngology 06/16/19 07/08/22 Romel Marrero MD [address] [place] [address] Consulting Physician Pulmonary Disease 06/16/19 Vladislav Nieves MD [address] [facility] [address] [place] [address] Consulting Physician Sleep Medicine 06/16/19 Nakul Fisher MD [address] [facility] 301 [place] [address] Referring Physician Obstetrics and Gynecology 06/16/19 Juan Noyola MD 5023 [place] [address] Referring Physician Gastroenterology 06/16/19 Dylan Christine, DPM [address] [facility] [place] [address] Consulting Physician Podiatry 07/19/24 documented as of this encounter
--- OUTSIDE RECORDS SUMMARY | 2025-03-19 07:31 | XMS_ITS | Encounter Summary ---
Author Organization [facility] Facility Care Team Providers Care Automatic Pilot Mechanic Name Role Phone Desiree Moody MD Primary Care Provider + [phone] Sushil Ching MD Unavailable [phone] Romel Marrero MD Unavailable [phone] Vladislav Nieves MD Unavailable [phone] Nakul Fisher MD Unavailable [phone] Juan Noyola MD Unavailable [phone] Dylan Christine DPM Unavailable [phone] Encounter Details Date Type Department Care Team (Latest Contact Info) Description 04/27/2018 Orders Only [facility] CLINCONV Provider, MD Letitia [address] [place] [address] Social History Tobacco Use Types Packs/Day Years Used Date Smoking Tobacco: Never Assessed Comments Unknown Sex and Gender Information Value Date Recorded Sex Assigned at Not on file Legal Sex Female 10:22 PM BRUSH SANDER Gender Identity Not on file Sexual Orientation [...] COVID: Suspected 10/22/2022 10/22/2022 10/22/2022 1:29 PM BRUSH SANDER COVID: Suspected 10/22/2022 10/22/2022 10/22/2022 7:35 PM BRUSH SANDER COVID: Suspected 03/11/2023 03/11/2023 03/11/2023 2:26 PM CDT COVID: Suspected 03/11/2023 03/11/2023 03/11/2023 8:42 PM CDT COVID: Suspected 11/05/2023 11/05/2023 11/05/2023 2:38 PM BRUSH SANDER COVID: Suspected 01/28/2024 01/28/2024 01/28/2024 9:32 AM CDT COVID: Suspected 01/30/2024 01/30/2024 01/30/2024 9:12 AM CDT documented as of this encounter Care Teams Automatic Pilot Mechanic Relationship Specialty Start Date End Date Desiree Moody MD [address] [place] [address] PCP - General Internal Medicine 01/30/19 Sushil Ching MD [address] [place] [address] Consulting Physician Otolaryngology 06/16/19 07/08/22 Romel Marrero MD [address] [place] [address] Consulting Physician Pulmonary Disease 06/16/19 Vladislav Nieves MD [address] [facility] [address] [place] [address] Consulting Physician Sleep Medicine 06/16/19 Nakul Fisher MD [address] [facility] 301 [place] [address] Referring Physician Obstetrics and Gynecology 06/16/19 Juan Noyola MD 5023 [place] [address] Referring Physician Gastroenterology 06/16/19 Dylan Christine, DPM [address] [facility] [place] [address] Consulting Physician Podiatry 07/19/24 documented as of this encounter
--- OUTSIDE RECORDS SUMMARY | 2025-03-19 07:31 | XMS_ITS | Encounter Summary ---
Author Organization [facility] Facility Care Team Providers Care Commercial Lines Insurance Agent Name Role Phone Desiree Moody MD Primary Care Provider + [phone] Sushil Ching MD Unavailable [phone] Romel Marrero MD Unavailable [phone] Vladislav Nieves MD Unavailable [phone] Nakul Fisher MD Unavailable [phone] Juan Noyola MD Unavailable [phone] Dylan Christine DPM Unavailable [phone] Encounter Details Date Type Department Care Team (Latest Contact Info) Description 06/25/2018 Orders Only [facility] CLINCONV Provider, MD Letitia [address] [place] [address] Social History Tobacco Use Types Packs/Day Years Used Date Smoking Tobacco: Never Assessed Comments Unknown Sex and Gender Information Value Date Recorded Sex Assigned at Not on file Legal Sex Female 10:22 PM TARGET SETTER Gender Identity Not on file Sexual Orientation [...] COVID: Suspected 10/22/2022 10/22/2022 10/22/2022 1:29 PM TARGET SETTER COVID: Suspected 10/22/2022 10/22/2022 10/22/2022 7:35 PM TARGET SETTER COVID: Suspected 03/11/2023 03/11/2023 03/11/2023 2:26 PM CDT COVID: Suspected 03/11/2023 03/11/2023 03/11/2023 8:42 PM CDT COVID: Suspected 11/05/2023 11/05/2023 11/05/2023 2:38 PM TARGET SETTER COVID: Suspected 01/28/2024 01/28/2024 01/28/2024 9:32 AM CDT COVID: Suspected 01/30/2024 01/30/2024 01/30/2024 9:12 AM CDT documented as of this encounter Care Teams Commercial Lines Insurance Agent Relationship Specialty Start Date End Date Desiree Moody MD [address] [place] [address] PCP - General Internal Medicine 01/30/19 Sushil Ching MD [address] [place] [address] Consulting Physician Otolaryngology 06/16/19 07/08/22 Romel Marrero MD [address] [place] [address] Consulting Physician Pulmonary Disease 06/16/19 Vladislav Nieves MD [address] [facility] [address] [place] [address] Consulting Physician Sleep Medicine 06/16/19 Nakul Fisher MD [address] [facility] 301 [place] [address] Referring Physician Obstetrics and Gynecology 06/16/19 Juan Noyola MD 5023 [place] [address] Referring Physician Gastroenterology 06/16/19 Dylan Christine, DPM [address] [facility] [place] [address] Consulting Physician Podiatry 07/19/24 documented as of this encounter
--- OUTSIDE RECORDS SUMMARY | 2025-03-19 07:31 | XMS_ITS | Clinical Summary ---
Author Organization [facility] Address [facility] [place] [address] Care Team Providers Care Wire Coater Name Role Phone Unavailable Primary Care Provider [...]
--- OUTSIDE RECORDS SUMMARY | 2025-03-19 07:31 | XMS_ITS | Encounter Summary ---
Author Organization [facility] Facility Care Team Providers Care Border Inspector Name Role Phone Desiree Moody MD Primary Care Provider + [phone] Sushil Ching MD Unavailable [phone] Romel Marrero MD Unavailable [phone] Vladislav Nieves MD Unavailable [phone] Nakul Fisher MD Unavailable [phone] Juan Noyola MD Unavailable [phone] Dylan Christine DPM Unavailable [phone] Encounter Details Date Type Department Care Team (Latest Contact Info) Description 10/28/2013 Orders Only [facility]G CLINCONV Provider, MD Letitia [address] [place] [address] Social History Tobacco Use Types Packs/Day Years Used Date Smoking Tobacco: Never Assessed Comments Unknown Sex and Gender Information Value Date Recorded Sex Assigned at Not on file Legal Sex Female 10:22 PM SCHEME TECHNICIAN Gender Identity Not on file Sexual [...] COVID: Suspected 10/22/2022 10/22/2022 10/22/2022 1:29 PM SCHEME TECHNICIAN COVID: Suspected 10/22/2022 10/22/2022 10/22/2022 7:35 PM SCHEME TECHNICIAN COVID: Suspected 03/11/2023 03/11/2023 03/11/2023 2:26 PM CDT COVID: Suspected 03/11/2023 03/11/2023 03/11/2023 8:42 PM CDT COVID: Suspected 11/05/2023 11/05/2023 11/05/2023 2:38 PM SCHEME TECHNICIAN COVID: Suspected 01/28/2024 01/28/2024 01/28/2024 9:32 AM CDT COVID: Suspected 01/30/2024 01/30/2024 01/30/2024 9:12 AM CDT documented as of this encounter Care Teams Border Inspector Relationship Specialty Start Date End Date Desiree Moody MD [address] [place] [address] PCP - General Internal Medicine 01/30/19 Sushil Ching MD [address] [place] [address] Consulting Physician Otolaryngology 06/16/19 07/08/22 Romel Marrero MD [address] [place] [address] Consulting Physician Pulmonary Disease 06/16/19 Vladislav Nieves MD [address] [facility] [address] [place] [address] Consulting Physician Sleep Medicine 06/16/19 Nakul Fisher MD [address] [facility] 301 [place] [address] Referring Physician Obstetrics and Gynecology 06/16/19 Juan Noyola MD 5023 [place] [address] Referring Physician Gastroenterology 06/16/19 Dylan Christine, DPM [address] [facility] [place] [address] Consulting Physician Podiatry 07/19/24 documented as of this encounter
--- OUTSIDE RECORDS SUMMARY | 2025-03-19 07:31 | XMS_ITS | Encounter Summary ---
Author Organization [facility] Facility Care Team Providers Care Heel Dipper Name Role Phone Desiree Moody MD Primary Care Provider + [phone] Sushli Ching MD Unavailable [phone] Romel Marrero MD Unavailable [phone] Vladislav Nieves MD Unavailable [phone] Nakul Fisher MD Unavailable [phone] Juan Noyola MD Unavailable [phone] Dylan Christine DPM Unavailable [phone] Encounter Details Date Type Department Care Team (Latest Contact Info) Description 05/27/2018 Orders Only MMG CLINCONV Provider, MD Letitia [address] [place] [address] Social History Tobacco Use Types Packs/Day Years Used Date Smoking Tobacco: Never Assessed Comments Unknown Sex and Gender Information Value Date Recorded Sex Assigned at Not on file Legal Sex Female 10:22 PM HAND TOOL LAPPER Gender Identity Not on file Sexual Orientation [...] COVID: Suspected 10/22/2022 10/22/2022 10/22/2022 1:29 PM HAND TOOL LAPPER COVID: Suspected 10/22/2022 10/22/2022 10/22/2022 7:35 PM HAND TOOL LAPPER COVID: Suspected 03/11/2023 03/11/2023 03/11/2023 2:26 PM CDT COVID: Suspected 03/11/2023 03/11/2023 03/11/2023 8:42 PM CDT COVID: Suspected 11/05/2023 11/05/2023 11/05/2023 2:38 PM HAND TOOL LAPPER COVID: Suspected 01/28/2024 01/28/2024 01/28/2024 9:32 AM CDT COVID: Suspected 01/30/2024 01/30/2024 01/30/2024 9:12 AM CDT documented as of this encounter Care Teams Heel Dipper Relationship Specialty Start Date End Date Desiree Moody MD [address] [place] [address] PCP - General Internal Medicine 01/30/19 Sushil Ching MD [address] [place] [address] Consulting Physician Otolaryngology 06/16/19 07/08/22 Romel Marrero MD [address] [place] [address] Consulting Physician Pulmonary Disease 06/16/19 Vladislav Nieves MD [address] [facility] [address] [place] [address] Consulting Physician Sleep Medicine 06/16/19 Nakul Fisher MD [address] [facility] 301 [place] [address] Referring Physician Obstetrics and Gynecology 06/16/19 Juan Noyola MD 5023 [place] [address] Referring Physician Gastroenterology 06/16/19 Dylan Christine, DPM [address] [facility] [place] [address] Consulting Physician Podiatry 07/19/24 documented as of this encounter
--- OUTSIDE RECORDS SUMMARY | 2025-03-19 07:31 | XMS_ITS | Referral Summary ---
Author Organization [facility] Address [address] [place] [address] Care Team Providers Care Customer Resolution Specialist Name Role Phone Desiree Moody MD Primary Care Provider [phone] Romel Marrero MD Unavailable [phone] Vladislav Nieves MD Unavailable [phone] Nakul Fisher MD Unavailable [phone] Juan Noyola MD Unavailable [phone] Dylan Christine DPM Unavailable [phone] Encounters Date Type Department Care Team Description 03/16/2025 8:00 AM CDT Office Visit [facility] Pulmonary [facility] [facility] [address] [place] [address] Vladislav Nieves MD MONIQUE on CPAP (Primary Dx); Cough variant asthma; Non-seasonal allergic rhinitis due to pollen; Psychophysiological insomnia; Primary narcolepsy without cataplexy; Nonsmoker; Teeth grinding; BMI 36.0-36.9,adult 01/14/2025 Orders Only [facility] Health Information Management [address] [place] [address] Scanning, Provider from Last 3 Months Allergies [...] cancer Cont annual mammogram screenings 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 I strongly encourage [employer] sign ups. It can facilitate communication flow. [...] and establishing or updating healthcare power of criminal defense attorney document and providing our office with [...] H2O Assessment & Plan (12/31/2022 10:46 AM STITCH CLEANER): Compliance poor Start using CPAP more regularlyl [...] ff up with Dr Noyola Trigger: ? Trail, nuts Ovarian cyst 03/26/2016 Resolved Problems Problem [...] hydration. Assessment & Plan (11/05/2023 2:36 PM STITCH CLEANER): Prob covid as well since son is [...] IMMEDIATELY. Assessment & Plan (10/22/2022 2:00 PM STITCH CLEANER): Rapid covid and flu negative PCR pending [...] 07/09/2022 Assessment & Plan (01/07/2022 2:07 PM STITCH CLEANER): Cont doxycline, refill if needed Add flonase ns Add prednisone Cont Inhaler Cont tessalon perles Nasal saline every four hours over the counter, prescriptions sent to pharmacy, may use over the counter allergy or sinus medication, Maintain adequate fluid intake. May use mqty-ecn-oxssnro acetaminophen or ibuprofen. 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 COMPARISON: Mammograms from [facility] [employer] ([place], [place]) dated 02/21/2024, 10/23/2022, 09/10/2021, and 09/08/2020 [...] by Clay Castro M.D., MD: Report ID: [id number] Reading Location: [facility] us Desiree Moody MD IMG MAMMO [...] with a HCV Nucleic Acid Amplification test ([id number]). Blood specimen (specimen) 07/13/2021 12:28 PM CDT 07/13/2021 Narrative [facility] - 07/14/2021 9:36 AM CDT Performed at: - [facility] [address] [id number] Magnetic Doctor: Dilshad Nunez PhD, Phone: [phone] Desiree Moody MD LAB MICROBIOLOGY - GENERAL O RDERABLES Final Result [facility] - 01 * PAP SMEAR WITH HPV (12/29/2018) HM Pap smear Unknown Historical Provider HEALTH MAINTENANCE Final Result from Last 3 Months or Most Recently Relevant to Health Maintenance Insurance [facility] Care Teams Customer Resolution Specialist Relationship Specialty Start Date End Date Desiree Moody MD [address] [place] [address] PCP - General Internal Medicine 01/30/19 Romel Marrero MD [address] [facility] [address] [place] [address] [place] [address] Consulting Physician Pulmonary Disease 06/16/19 Vladislav Nieves MD [address] [facility] [address] [place] [address] [place] [address] Consulting Physician Sleep Medicine 06/16/19 Nakul Fisher MD [address] [address] Referring Physician Obstetrics and Gynecology 06/16/19 Juan Noyola MD [address]23 [place] [address] Referring Physician Gastroenterology 06/16/19 Dylan Christine, DPM [address] [facility] [address] [place] [facility] [place] [address] Consulting Physician Podiatry 07/19/24
--- OUTSIDE RECORDS SUMMARY | 2025-03-19 07:31 | XMS_ITS | Encounter Summary ---
Author Organization [facility] Facility Care Team Providers Care Acute Care Clinical Nurse Specialist Name Role Phone Desiree Moody MD Primary Care Provider + [phone] Sushil Ching MD Unavailable [phone] Romel Marrero MD Unavailable [phone] Vladislav Nieves MD Unavailable [phone] Nakul Fisher MD Unavailable [phone] Juan Noyola MD Unavailable [phone] Dylan Christine DPM Unavailable [phone] Encounter Details Date Type Department Care Team (Latest Contact Info) Description 12/25/2016 Orders Only [facility] CLINCONV Provider, MD Letitia [address] [place] [address] Social History Tobacco Use Types Packs/Day Years Used Date Smoking Tobacco: Never Assessed Comments Unknown Sex and Gender Information Value Date Recorded Sex Assigned at Not on file Legal Sex Female 10:22 PM AUTO CLEANER Gender Identity Not on file Sexual Orientation Not on file documented as of this encounter Plan of Treatment Not on file documented as of this encounter Procedures Procedure Name Priority Date/Time Associated Diagnosis Comments COLONOSCOPY - SCAN 12/25/2016 12 :00 AM AUTO CLEANER documented in this encounter Results * COLONOSCOPY - SCAN (12/25/2016 12:00 AM AUTO CLEANER) Narrative 12/25/2016 12:00 AM AUTO CLEANER Ordered by an unspecified provider. us Historical Provider Final Res ult documented in this encounter Visit Diagnoses Not on filedocumented in this encounter Additional Health Concerns Infection Onset Date Last Indicated Resolved Time COVID: Suspected 05/01/2021 05/01/2021 05/02/2021 6:18 AM CDT COVID: Suspected 10/22/2022 10/22/2022 10/22/2022 1:29 PM AUTO CLEANER COVID: Suspected 10/22/2022 10/22/2022 10/22/2022 7:35 PM AUTO CLEANER COVID: Suspected 03/11/2023 03/11/2023 03/11/2023 2:26 PM CDT COVID: Suspected 03/11/2023 03/11/2023 03/11/2023 8:42 PM CDT COVID: Suspected 11/05/2023 11/05/2023 11/05/2023 2:38 PM AUTO CLEANER COVID: Suspected 01/28/2024 01/28/2024 01/28/2024 9:32 AM CDT COVID: Suspected 01/30/2024 01/30/2024 01/30/2024 9:12 AM CDT documented as of this encounter Care Teams Acute Care Clinical Nurse Specialist Relationship Specialty Start Date End Date Desiree Moody MD [address] [place] [address] PCP - General Internal Medicine 01/30/19 Sushil Ching MD [address] [place] [address] Consulting Physician Otolaryngology 06/16/19 07/08/22 Romel Marrero MD [address] [place] [address] Consulting Physician Pulmonary Disease 06/16/19 Vladislav Nieves MD [address] [facility] [address] [place] [address] Consulting Physician Sleep Medicine 06/16/19 Nakul Fisher MD [address] [facility] [address] [place] [address] Referring Physician Obstetrics and Gynecology 06/16/19 Juan Noyola MD 5023 [place] [address] Referring Physician Gastroenterology 06/16/19 Dylan Christine, DPM [address] [facility] [place] [place] [address] Consulting Physician Podiatry 07/19/24 documented as of this encounter
--- OUTSIDE RECORDS SUMMARY | 2025-03-19 07:31 | XMS_ITS | Continuity of Care Document ---
Author Organization [facility] Address [address] [place] [address] Phone Care Team Providers Care Milk And Cream Grader Name Role Phone Janene Ortiz DO Unavailable [...] Date Provider Providers Copied on Encounter [facility], [address], [id number], [place] tel:[phone] [employer] No Information Diana Watters. [address] [facility], [address], [place], [place], [id number] , [place]. tel: [phone] Office/outpat ient visit,est, mod [facility], [address] [place] [address], [place], [place], [id number], [place] tel:[phone] [employer] cervical thoracic lumbar abdomen (chief complaint) Sprain of ligaments of cervical spine, subsequent encounterSprain of ligaments of thoracic spine, subsequent encounterSprain of ligaments of lumbar spine, subsequent encounter 6 Diana Watters. [address] [facility], [address] [place] [address], [id number] , [place]. tel: [phone] Office/outpat ient visit,est, [facility], [address] [place] [address], [id number], [place] [phone] [facility] Follow Up of Cervical, thoracic, lumbar & chest (chief complaint) Sprain of ligaments of cervical spine, subsequent encounterSprain of ligaments of lumbar spine, subsequent encounterSprain of ligaments of thoracic spine, subsequent encounterStrain of fascia of abdomen, subsequent encounter 6 Diana Watters. [address] [facility], [place] [address], [place], [place], [id number] , [place]. tel: [phone] Office/outpat ient visit,est, [facility] [place] [facility], [address] [place] [address], [id number], [place] [phone] [facility] Follow Up of Cervical, thoracic, lumbar, chest and left (chief complaint) Sprain of ligaments of cervical spine, subsequent encounterSprain of ligaments of lumbar spine, subsequent encounterSprain of ligaments of thoracic spine, subsequent encounterStrain of fascia of abdomen, subsequent encounter 6 Diana Watters. [address] [facility], [address], [id number] , [place]. tel: [phone] Office/outpat ient visit,est, [facility], [address] [place] [address], [id number], [place] [phone] [facility] Follow Up of Cervical, Thoracic, Lumbar, chest & left a (chief complaint) Sprain of ligaments of cervical spine, subsequent encounterSprain of ligaments of lumbar spine, subsequent encounterSprain of ligaments of thoracic spine, subsequent encounterStrain of fascia of abdomen, subsequent encounter 6 Diana Watters. [address] [facility], [address], [id number] , [place]. tel: [phone] Office/outpat ient visit,new, mod [facility], [address], [place], [place], [id number], [place] tel:[phone] [facility] Cervical (chief complaint) Sprain of ligaments of cervical spine, initial encounterSprain of ligaments of lumbar spine, initial encounterSprain of ligaments of thoracic spine, initial encounterStrain of muscle of abdomen, initial encounter Jul- 6 Diana Watters. [address] [facility], [address], [place], [place], [id number] , [place]. tel: [phone] Family History Family Member Type Diagnosis Age At Onset Maternal aunt Problem (finding) Cancer, unknown Maternal grandmother Problem (finding) Diabetes mellit Payers Payer name Insurance type Covered green party ID Nilson hamilton(s) Corporate Claims Management [id number] Social History Type Description Quantity Date Captured [...]
--- OUTSIDE RECORDS SUMMARY | 2025-03-19 07:32 | XMS_ITS | Encounter Summary ---
Author Organization [facility] Facility Care Team Providers Care Earth Science Laboratory Technician Name Role Phone Desiree Moody MD Primary Care Provider + [phone] Sushil Ching MD Unavailable [phone] Romel Marrreo MD Unavailable [phone] Vladislav Nieves MD Unavailable [phone] Nakul Fisher MD Unavailable [phone] Juan Noyola MD Unavailable [phone] Dylan Christine DPM Unavailable [phone] Encounter Details Date Type Department Care Team (Latest Contact Info) Description 06/27/2016 Orders Only [facility] Provider, MD Letitia [address] [place] [address] Social History Tobacco Use Types Packs/Day Years Used Date Smoking Tobacco: Never Assessed Comments Unknown Sex and Gender Information Value Date Recorded Sex Assigned at Not on file Legal Sex Female 10:22 PM DIGITAL PHOTOGRAPHER Gender Identity Not on file Sexual Orientation [...] COVID: Suspected 10/22/2022 10/22/2022 10/22/2022 1:29 PM DIGITAL PHOTOGRAPHER COVID: Suspected 10/22/2022 10/22/2022 10/22/2022 7:35 PM DIGITAL PHOTOGRAPHER COVID: Suspected 03/11/2023 03/11/2023 03/11/2023 2:26 PM CDT COVID: Suspected 03/11/2023 03/11/2023 03/11/2023 8:42 PM CDT COVID: Suspected 11/05/2023 11/05/2023 11/05/2023 2:38 PM DIGITAL PHOTOGRAPHER COVID: Suspected 01/28/2024 01/28/2024 01/28/2024 9:32 AM CDT COVID: Suspected 01/30/2024 01/30/2024 01/30/2024 9:12 AM CDT documented as of this encounter Care Teams Earth Science Laboratory Technician Relationship Specialty Start Date End Date Desiree Moody MD [address] [place] [address] PCP - General Internal Medicine 01/30/19 Sushil Ching MD [address] [place] [address] Consulting Physician Otolaryngology 06/16/19 07/08/22 Romel Marrero MD [address] [place] [address] Consulting Physician Pulmonary Disease 06/16/19 Vladislav Nieves MD [address] [facility] [address] [place] [address] Consulting Physician Sleep Medicine 06/16/19 Nakul Fisher MD [address] [facility] [address] [place] [address] Referring Physician Obstetrics and Gynecology 06/16/19 Juan Noyola MD [address] [place] [address] Referring Physician Gastroenterology 06/16/19 Dylan Christine, DPM [address] [facility] [place] [address] Consulting Physician Podiatry 07/19/24 documented as of this encounter
--- OUTSIDE RECORDS SUMMARY | 2025-03-19 07:32 | XMS_ITS | Encounter Summary ---
Author Organization [facility] Facility Care Team Providers Care Materials Supervisor Name Role Phone Desiree Moody MD Primary Care Provider + [phone] Sushil Ching MD Unavailable [phone] Romel Marrero MD Unavailable [phone] Vladislav Nieves MD Unavailable [phone] Nakul Fisher MD Unavailable [phone] Juan Noyola MD Unavailable [phone] Dylan Christine DPM Unavailable [phone] Encounter Details Date Type Department Care Team (Latest Contact Info) Description 08/05/2015 Orders Only [facility]INCONV Provider, MD Letitia [address] [place] [address] Social History Tobacco Use Types Packs/Day Years Used Date Smoking Tobacco: Never Assessed Comments Unknown Sex and Gender Information Value Date Recorded Sex Assigned at Not on file Legal Sex Female 10:22 PM SKID MACHINE OPERATOR Gender Identity Not on file [...] COVID: Suspected 10/22/2022 10/22/2022 10/22/2022 1:29 PM SKID MACHINE OPERATOR COVID: Suspected 10/22/2022 10/22/2022 10/22/2022 7:35 PM SKID MACHINE OPERATOR COVID: Suspected 03/11/2023 03/11/2023 03/11/2023 2:26 PM CDT COVID: Suspected 03/11/2023 03/11/2023 03/11/2023 8:42 PM CDT COVID: Suspected 11/05/2023 11/05/2023 11/05/2023 2:38 PM SKID MACHINE OPERATOR COVID: Suspected 01/28/2024 01/28/2024 01/28/2024 9:32 AM CDT COVID: Suspected 01/30/2024 01/30/2024 01/30/2024 9:12 AM CDT documented as of this encounter Care Teams Materials Supervisor Relationship Specialty Start Date End Date Desiree Moody MD [address] [place] [address] PCP - General Internal Medicine 01/30/19 Sushil Ching MD [address] [place] [address] Consulting Physician Otolaryngology 06/16/19 07/08/22 Romel Marrero MD [address] [place] [address] Consulting Physician Pulmonary Disease 06/16/19 Vladislav Nieves MD [address] [facility] [address] [place] [address] Consulting Physician Sleep Medicine 06/16/19 Nakul Fisher MD [address] [facility] [address] [place] [address] Referring Physician Obstetrics and Gynecology 06/16/19 Juan Noyola MD [address] [place] [address] Referring Physician Gastroenterology 06/16/19 Dylan Christine, DPM [address] [facility] [place] [address] Consulting Physician Podiatry 07/19/24 documented as of this encounter
--- OUTSIDE RECORDS SUMMARY | 2025-03-19 07:32 | XMS_ITS | Encounter Summary ---
Author Organization [facility] Facility Care Team Providers Care Thermoscrew Operator Name Role Phone Desiree Moody MD Primary Care Provider + [phone] Sushil Ching MD Unavailable [phone] Romel Marrero MD Unavailable [phone] Vladislav Nieves MD Unavailable [phone] Nakul Fisher MD Unavailable [phone] Juna Noyola MD Unavailable [phone] Dylan Chrsitine DPM Unavailable [phone] Encounter Details Date Type Department Care Team (Latest Contact Info) Description 06/20/2016 Orders Only [facility] Provider, MD Letitia [address] [place] [address] Social History Tobacco Use Types Packs/Day Years Used Date Smoking Tobacco: Never Assessed Comments Unknown Sex and Gender Information Value Date Recorded Sex Assigned at Not on file 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 Gender Identity Not on file Sexual [...] COVID: Suspected 10/22/2022 10/22/2022 10/22/2022 1:29 PM MERCHANDISE TEAM MANAGER COVID: Suspected 10/22/2022 10/22/2022 10/22/2022 7:35 PM MERCHANDISE TEAM MANAGER COVID: Suspected 03/11/2023 03/11/2023 03/11/2023 2:26 PM CDT COVID: Suspected 03/11/2023 03/11/2023 03/11/2023 8:42 PM CDT COVID: Suspected 11/05/2023 11/05/2023 11/05/2023 2:38 PM MERCHANDISE TEAM MANAGER COVID: Suspected 01/28/2024 01/28/2024 01/28/2024 9:32 AM CDT COVID: Suspected 01/30/2024 01/30/2024 01/30/2024 9:12 AM CDT documented as of this encounter Care Teams Thermoscrew Operator Relationship Specialty Start Date End Date Desiree Moody MD [address] [place] [address] PCP - General Internal Medicine 01/30/19 Sushil Ching MD [address] [place] [address] Consulting Physician Otolaryngology 06/16/19 07/08/22 Romel Marrero MD [address] [place] [address] Consulting Physician Pulmonary Disease 06/16/19 Vladislav Nieves MD [address] [facility] [address] [place] [address] Consulting Physician Sleep Medicine 06/16/19 Nakul Fisher MD [address] [facility] [address] [place] [address] Referring Physician Obstetrics and Gynecology 06/16/19 Juan Noyola MD [address] [place] [address] Referring Physician Gastroenterology 06/16/19 Dylan Christine, DPM [address] [facility] [place] [place] [address] Consulting Physician Podiatry 07/19/24 documented as of this encounter
--- OUTSIDE RECORDS SUMMARY | 2025-03-19 07:32 | XMS_ITS | Encounter Summary ---
Author Organization [facility] Healthcare Address [address] [place] [address] Care Team Providers Care Material Damage Appraiser Name Role Phone Desiree Moody MD Primary Care Provider [phone] Romel Marrero MD Unavailable [phone] Vladislav Nieves MD Unavailable [phone] Nakul Fisher MD Unavailable [phone] Juan Noyola MD Unavailable [phone] Dylan Christine DPM Unavailable [phone] Encounter Details Date Type Department Care Team (Late st Contact Info) Description 01/14/2025 Orders Only [facility] Health Information Management [address] [place] [address] Scanning, Provider Social History Tobacco Use [...] on file 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 Gender Identity Not on file Sexual Orientation Not on file 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 Not on file Not on file 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[employer] Not on file Not on [...] on filedocumented in this encounter Care Teams Material Damage Appraiser Relationship Specialty Start Date End Date Desiree Moody MD [address] [place] [address] PCP - General Internal Medicine 01/30/19 Romel Marrero MD [address] [facility] [address] [place] [address] Consulting Physician Pulmonary Disease 06/16/19 Vladislav Nieves MD [address] [facility] [address] [place] [address] Consulting Physician Sleep Medicine 06/16/19 Nakul Fisher MD [address] [address] Referring Physician Obstetrics and Gynecology 06/16/19 Juan Noyola MD [address] [place] [address] Referring Physician Gastroenterology 06/16/19 Dylan Christine, YOU [address] [facility] [place] [address] Consulting Physician Podiatry 07/19/24 documented as of this encounter
--- NOTE | 2025-03-19 07:33 | ED.BACK ---
HPI - Back Pain/Injury General Chief Complaint: Back Pain/Injury Stated Complaint: Right flank pain Time Seen by Provider: 03/19/25 07:20 Source: patient Related Data Home Medications Medication Instructions Recorded Confirmed Last Taken Type benzonatate 200 mg capsule mg PO 11/28/24 11/28/24 History Allergies Allergy/AdvReac Type Severity Reaction Status Date / Time metronidazole Allergy Intermediate Rash Verified 03/19/25 06:36 fluconazole Allergy Unknown Rash Verified 03/19/25 06:36 Penicillins Allergy Unknown Unknown Verified 03/19/25 06:36 shellfish derived Allergy Unknown Verified 03/19/25 06:36 [facility] Past Medical History Medical History No active medical problems Social History Social History Smoking status: Never smoker Gender identity (if verbalized by the patient): Female Sexual Orientation (if Verbalized by the Patient): Straight or Heterosexual Course Vital Signs Vital signs: Vital Signs Temperature 36.8 C 03/19/25 06:33 Pulse Rate 98 03/19/25 06:33 Respiratory Rate 20 03/19/25 06:33 Blood Pressure 136/78 03/19/25 06:33 Pulse Oximetry 97 03/19/25 06:33 Oxygen Delivery Room Air 03/19/25 06:33 Temperature 36.8 C 03/19/25 06:33 Pulse Rate 69 03/19/25 11:01 Respiratory Rate 16 03/19/25 11:01 Blood Pressure 117/74 03/19/25 11:01 Pulse Oximetry 98 03/19/25 11:01 Oxygen Delivery Room Air 03/19/25 06:33 MDM - Back Pain/Injury MDM Narrative Medical decision making narrative: PATIENT CAME WITH RIGHT FLANK PAIN STARTED FEW DAYS AGO VITAL SIGNS ARE STABLE PHYSICAL EXAMINATION SHOWING TENDERNESS AT THE RIGHT FLANK AND RIGHT UPPER QUADRANT OTHERWISE INSIGNIFICANT DIFFERENTIAL DIAGNOSIS INCLUDE KIDNEY STONE, URINARY TRACT INFECTION, MUSCULAR PAIN, DIVERTICULITIS, COLITIS, CONSTIPATION, CHOLECYSTITIS. BLOOD WORKUP TODAY INCLUDES CBC, CMP, LIPASE SHOWED INSIGNIFICANT ABNORMALITY URINALYSIS SHOWED NO EVIDENCE OF INFECTION CT ABDOMEN AND PELVIS WITH IV CONTRAST SHOWED NO ACUTE INTRA-ABDOMINAL ABNORMALITY MUSCULAR PAIN IS MY CONCERN. DISCHARGED ON NAPROXEN, CYCLOBENZAPRINE AND FOLLOW-UP WITH HER FAMILY PHYSICIAN NEEDED THE PT WAS DISCHARGED TO HOME.THE PT,S CONDITION UPON DISCHARGE WAS FAIR,EDUCATION WAS PROVIDED TO THE PT IN REFERENCE TO THE FINAL IMPRESSION,DISCHARGE STUDY RESULTS,TREATMENT,PROGNOSIS AND NEED FOR FOLLOW UP . Differential Diagnosis Differential diagnosis: Likely other ( ABOVE) Medical Records Attestation: I reviewed the patient's medical records. Lab Data Attestation: I reviewed the patient's lab results. 03/19/25 08:35 03/19/25 08:35 Labs: Lab Results 03/19/25 03/19/25 Range/Units 08:35 08:40 WBC 5.0 (4.5-10.0) K/mm3 RBC 4.52 (4.2-5.4) M/mm3 Hgb 12.6 (12.0-15.0) g/dL Hct 40.0 (37.0-47.0) % MCV 88.5 (80-100) fl MCH 27.9 (26-34) pg MCHC 31.5 L (32-36) g/dl RDW 13.8 (11.5-14.5) % Plt Count 249 (150-375) k/mm3 MPV 10.0 (7.4-10.4) fl Immature Gran % (Auto) 0.4 (0-0.5) % Neut % (Auto) 64.7 (45.5-73.1) % Lymph % (Auto) 25.5 (18.3-44.2) % [place] % (Auto) 7.0 (2.6-8.5) % Eos % (Auto) 2.0 (0-4.4) % Baso % (Auto) 0.4 (0.2-1.2) % Lymph # (Auto) 1.28 (0.9-3.2) K/mm3 [place]anan # (Auto) 0.4 (0.1-0.6) K/mm3 Eos # (Auto) 0.1 (0-0.3) K/mm3 Baso # (Auto) 0.0 (0.0-0.1) K/mm3 Abs Immat Gran (auto) 0.02 (0.00-0.031) K/mm3 Absolute Neuts (auto) 3.2 (1.3-6.7) K/mm3 Absolute Nucleated RBC 0.000 (0.0-0.012) K/mm3 Nucleated RBC % 0.0 (0.0-0.2) % Sodium 137 (137-145) mmol/L Potassium 4.5 (3.4-5.0) mmol/L Chloride 103 (98-107) mmol/L Carbon Dioxide 26 (22-30) mmol/L Anion Gap 8 (4-12) mmol/L BUN 8 (7-17) mg/dL Creatinine 0.64 L (0.7-1.0) mg/dL Estim Creat Clear Calc 100 ml/min Estimated GFR > 60 (59 - ) Glucose 104 (65-110) mg/dL Calcium 9.0 (8.4-10.2) mg/dL Total Bilirubin 0.7 (0.2-1.3) mg/dL AST 32 (14-36) U/L ALT 19 (6-35) U/L Alkaline Phosphatase 61 (38-126) U/L Total Protein 8.0 (6.3-8.2) g/dL Albumin 4.3 (3.5-5.1) g/dL Lipase 44 (23-300) U/L Urine Color Yellow (Yellow) Urine Appearance Clear (Clear) Urine pH 7.5 (5.0-9.0) Ur Specific [place] 1.008 (1.001-1.035) Urine Protein Negative (Negative) mg/dL Urine Glucose (UA) Negative (Negative) mg/dL Urine Ketones Negative (Negative) mg/dL Ur Blood (Man) Negative (Negative) Urine Nitrate Negative (Negative) Urine Bilirubin Negative (Negative) Urine Urobilinogen 0.2 (<2.0) mg/dL Leukocyte Esterase Rfl Negative (Negative) RUI/UL POC Urine HCG, Qual Negative (Negative) Imaging Data Radiologist's impression: Impressions Abdomen/Pelvis CT 03/19/25 09:47 IMPRESSION: 1. No acute intra-abdominal/pelvic process. Critical Care Time Critical Care Time Critical Care Time: No Discharge Plan Discharge Clinical Impression: Abdominal pain Patient Disposition: Home Condition: Stable Instructions: Abdominal Pain (ED) Additional Instructions: RETURN IF SYMPTOMS ARE WORSENING , CALL YOUR FAMILY PHYSICIAN FOR APPOINTMENT, TAKE TYLENOL NEEDED FOR ACHES AND PAIN, CONTINUE HOME MEDICATIONS. Patient Language: Hong Konger Prescriptions: New naproxen [Naprosyn] 500 mg tablet 500 mg PO BID PRN (Reason: pain) Qty: 14 0RF cyclobenzaprine 10 mg tablet 10 mg PO TID PRN (Reason: muscle spasm) Qty: 20 0RF No Action benzonatate 200 mg capsule PO benzonatate 100 mg capsule 100 mg PO TID PRN (Reason: cough) Qty: 14 0RF albuterol sulfate 90 mcg/actuation HFA aerosol inhaler 1 puff inhalation QID Qty: 6.7 0RF amoxicillin-pot clavulanate 875-125 mg tablet 1 tablet PO Q12H 7 Days Qty: 14 0RF Follow-up/Referrals: Fransisco,Desiree Wiley MD [Primary Care Provider] -
[2025-03-19] MEDS: ONDANSETRON INJ 4 MG/2 ML VIAL IV PUSH (08:29)
[2025-03-19] MEDS: SODIUM CHLORIDE 0.9% IV 1,000 ML 999 ML IV CONT (08:29)
[2025-03-19] MEDS: HYDROmorphone HCL INJ (*CRX) 2 MG/ML VIAL 0.5 MG IV PUSH (08:29)
[2025-03-19 08:42] LABS: BEDSIDEPREGUCG Negative (Negative)
[2025-03-19 08:47] LABS: Basophils Percent Auto 0.4 % (0.2-1.2); Eosinophils Absolute Auto 0.1 K/mm3 (0-0.3); Hemoglobin 12.6 g/dL (12.0-15.0); Immature Granulocyte Absolute 0.02 K/mm3 (0.00-0.031); Immature Granulocyte Percent A 0.4 % (0-0.5); Lymphocytes Absolute Auto 1.28 K/mm3 (0.9-3.2); Lymphocytes Percent Auto 25.5 % (18.3-44.2); Mean Corpuscular HGB Conc 31.5 g/dl (32-36); Mean Corpuscular Hemoglobin 27.9 pg (26-34); Mean Corpuscular Volume 88.5 fl (80-100); Monocytes Absolute Auto 0.4 K/mm3 (0.1-0.6); Neutrophils Absolute Auto 3.2 K/mm3 (1.3-6.7); Neutrophils Percent Auto 64.7 % (45.5-73.1); Platelet Count Result 249 k/mm3 (150-375); Red Blood Count 4.52 M/mm3 (4.2-5.4); Red Cell Distribution Width 13.8 % (11.5-14.5)
[2025-03-19 08:50] LABS: Add Urine Microscopic? NO; Appearance Urine Clear (Clear); Bilirubin Urine Negative (Negative); Blood Urine Negative (Negative); Color Urine Yellow (Yellow); Glucose Urine UA Negative (Negative); Ketones Urine Negative (Negative); Leukocyte Esterase Ur Negative LEU/UL (Negative); Nitrate Urine Negative (Negative); Protein Urine Negative (Negative); Specific Grav Ur 1.008 (1.001-1.035); Urobilinogen Urine 0.2 mg/dL (<2.0); pH Urine 7.5 (5.0-9.0)
[2025-03-19 09:00] LABS: Alanine Aminotransferase 19 U/L (6-35); Albumin Level 4.3 g/dL (3.5-5.1); Alkaline Phosphatase 61 U/L (38-126); Anion Gap 8 mmol/L (4-12); Aspartate Amino Transferase 32 U/L (14-36); Bilirubin,Total 0.7 mg/dL (0.2-1.3); Blood Urea Nitrogen 8 mg/dL (7-17); Carbon Dioxide 26 mmol/L (22-30); Chloride 103 mmol/L (98-107); Estimated CRCL calculation 100 ml/min; Estimated Glomerular Filt Rate > 60; Glucose 104 mg/dL (65-110); Lipase 44 U/L (23-300); Potassium 4.5 mmol/L (3.4-5.0); Sodium 137 mmol/L (137-145)
== END 2025-03-19 11:59 | disposition home or self-care (01) ==
PROVIDERS: Emergency Provider Emergency Medicine; PCP Internal Medicine
DX: R10.9 Unspecified abdominal pain (principal)
CPT/HCPCS: 36415; 74177; 80053; 81003; 81025; 83690; 85025; 96361; 96374; 96375; 99284; J1171; J2405; J7030; Q9967

== ENCOUNTER 2025-09-01 15:24 | Emergency (ER) | payer OTHER, SELFPAY ==
[2025-09-01 15:38] VITALS: BP 132/82; PULSE 82; RESP 16; TEMP 36.4; O2SAT 99
--- NOTE | 2025-09-01 15:50 | ED_ITS ---
HPI - URI/Sore Throat General Chief Complaint: Upper Respiratory Infection Stated Complaint: Cough/Sore Throat/Ears Time Seen by Provider: 09/01/25 15:45 Source: patient, RN notes reviewed and old records reviewed Mode of arrival: ambulatory Limitations: no limitations History of Present Illness HPI Narrative: 49 year old female who presents to [facility] care with complaints of 5 day history of cough which is at times productive of thick white phlegm, nasal congestion with drainage some sore throat and right eat pain. Patient reports that she had hearing test on day 1 of symptoms and has had ear pain and itching since to right ear since.Patient reports that she has had one day of sore throat and some diarrhea, has felt feverish denies any body aches or any shortness of breath or any headaches.. Patient reports that she has been taking DayQuil and Nyquil for her symptoms and using cough drops. MD elicited complaint: cough, sore throat, rhinorrhea and other (ear pain) Onset (ago): day(s) (5) Severity: mild Description of mucous: other (white thick phlegm) Able to tolerate fluids by mouth: Yes Treatments prior to arrival: other (DayQuil NyQuil and cough drops) Related Data Home Medications ?Medication ?Instructions ?Recorded ?Confirmed ?Last Taken ?Type escitalopram oxalate 5 mg tablet mg 09/01/25 Unknown History Allergies Allergy/AdvReac Type Severity Reaction Status Date / Time metronidazole Allergy Intermediate Rash Verified 09/01/25 15:26 fluconazole Allergy Unknown Rash Verified 09/01/25 15:26 Penicillins Allergy Unknown Unknown Verified 09/01/25 15:26 shellfish derived Allergy Unknown Verified 09/01/25 15:26 Review of Systems Review of Systems: CONSTITUTIONAL:Reports malaise,no chills, sweats, has felt feverish. EYES: Denies visual changes, redness, or discharge. ENT: Reports rhinorrhea, congestion, sinus pressure, right otalgia and sore th roat. CARDIOVASCULAR: Denies chest pain, palpitations, or edema. RESPIRATORY: Reports productive cough.? Denies dyspnea. GASTROINTESTINAL: Denies abdominal pain, nausea, vomiting, positive for one day of diarrhea SKIN: Denies rash or itching. MUSCULOSKELETAL: Denies myalgia. NEUROLOGIC: Denies headache. All systems reviewed & are unremarkable except as noted in HPI and below PMFSH Past Medical History Medical History Sleep apnea Anemia GERD (gastroesophageal reflux disease) Anxiety and depression Surgical History Surgical History (Updated 09/02/25 @ 12:04 by Fidelina Julien APRN) Hx of laparoscopy ectopic History of dilatation and curettage Social History Social History Smoking status: Never smoker Gender identity (if verbalized by the patient): Female Sexual Orientation (if Verbalized by the Patient): Straight or Heterosexual Comments At time of signature, agree with nursing past medical, surgical, social and family history. There is no relevant family history pertinent to the presenting complaint Exam Narrative: GENERAL: Well-appearing, well-nourished, and in no acute distress. HEAD: Normocephalic EYES: PERRLA, conjunctivae clear ENT: Nares clear, turbinates edematous and erythematous, clear discharge. Mucous membranes moist.Right TM with redness, Left TM pearly guan with dull light reflex; no tragal tenderness. Oropharynx erythematous without lesions. Tonsils not enlarged and without exudate, no drooling, no hoarseness, no trismus, uvula midline.post nasal drainage NECK: Supple. No lymphadenopathy CHEST: Clear to auscultation, breath sounds equal. No wheezing, rhonchi, rales, or stridor. No respiratory distress, speaks in full sentences.productive cough, SAO2 99% on room air HEART: Regular rate and rhythm. No murmur heard. SKIN: Warm, dry, no rash. NEURO: Alert and oriented x3. PSYCH: Normal mood and affect Course Course Emergency Course: Patient is aware of diagnosis, understands and agrees to treatment plan.? Anticipatory guidance given.? Patient agrees to follow-up as directed and is aware of reasons to seek care at the emergency department. Portions of this record may have been created with voice recognition software Level of Care: Express Care Visit Vital Signs Vital signs: Vital Signs Temperature 36.4 C L 09/01/25 15:38 Pulse Rate 82 09/01/25 15:38 Respiratory Rate 16 09/01/25 15:38 Blood Pressure 132/82 09/01/25 15:38 Pulse Oximetry 99 09/01/25 15:38 Oxygen Delivery Room Air 09/01/25 15:38 Temperature 36.4 C L 09/01/25 15:38 Pulse Rate 82 09/01/25 15:38 Respiratory Rate 16 09/01/25 15:38 Blood Pressure 132/82 09/01/25 15:38 Pulse Oximetry 99 09/01/25 15:38 Oxygen Delivery Room Air 09/01/25 15:38 Reviewed MDM - URI/Sore Throat MDM Narrative Medical decision making narrative: Differential diagnosis considered: Dee virus, strep pharyngitis, allergic rhinitis, upper respiratory tract infection, sinusitis, rhinosinusitis, nasopharyngitis. viral pharyngitis, otitis media, otitis externa, pneumonia, bronchitis, viral cough syndrome, viral syndrome, and influenza.? Exam findings show no acute concerns or changes; patient is non-toxic appearing and is in no distress.? Patient is appropriate for outpatient treatment and follow-up. Differential Diagnosis Differential diagnosis: Likely upper respiratory infection, otitis media, sinus itis, viral infection, pharyngitis and other (cough) Medical Records Attestation: I reviewed the patient's medical records. Lab Data Attestation: I reviewed the patient's lab results. Lab results narrative: strep screen negative, strep culture sent, Influenza A&B negative, COVID antigen negative Labs: Lab Results 09/01/25 Range/Units 15:53 POC Influenza A Ag Negative (Negative) POC Influenza B Ag Negative (Negative) POC SARS CoV-2 Ag Negative (Negative) POC Grp A Strep Screen Negative (Negative) reviewed Critical Care Time Critical Care Time Critical Care Time: No Discharge Plan Discharge Clinical Impression: Cough in adult patient Otitis media, right Qualifiers: Otitis media type: serous Chronicity: acute Recurrence: non-recurrent Qualified Code(s): H65.01 - Acute serous otitis media, right ear Patient Disposition: Home Condition: Stable Instructions: Antibiotic Form, Ear Infection (GEN), Acute Cough (ED) Additional Instructions: Increase fluids especially juices and water [id number] cough and cold medicine of your choice for your symptoms Cough tablets as directed for cough--do not bite, chew or suck on--swallow whole Zyrtec Claritin or Maile daily heat to the face 20-30 minutes 4-6 times a day for pain Salt water gargles, throat lozenges or throat sprays as desired Antibiotic as directed--finished the medication If your symptoms persist, change or worsen significantly before you can contact your personal physician then please, without delay, go to the emergency department for further evaluation. Follow-up with PCP in 7-10 days or sooner if needed Follow up with PCP soon in regards to your blood pressure which is elevated above threshold for referral. Blood pressure above 120/80 may indicate pre- hypertension. Patient was treated in November with Amoxicillin and Clavulanate with no reaction Patient Language: Czech Prescriptions: New amoxicillin-pot clavulanate 875-125 mg tablet 1 tablet PO Q12H Qty: 14 0RF benzonatate 200 mg capsule 200 mg PO TID PRN (Reason: cough) Qty: 20 0RF Rx Instructions: for cough No Action escitalopram oxalate 5 mg tablet triamcinolone acetonide 0.1 % ointment 1 applic topical BID PRN (Reason: irritation) Qty: 30 0RF albuterol sulfate 90 mcg/actuation HFA aerosol inhaler 1 puff inhalation QID Qty: 6.7 0RF Follow-up/Referrals: Fransisco,Desiree Wiley MD [Primary Care Provider, Unknown] Time of Disposition: 16:05 Quality [place] Coma Scale Eyes: Open Verbal: Oriented and Alert Motor: Follows Commands [place] Coma Total Score: 15
[2025-09-01 15:55] LABS: EDCOVIDSCREEN Negative (Negative); EDINFLUASCREEN Negative (Negative); EDINFLUBSCREEN Negative (Negative); EDSTREPNEGPOS1 Negative (Negative)
== END 2025-09-01 16:10 | disposition home or self-care (01) ==
PROVIDERS: Emergency Provider Registered Nurse; PCP Internal Medicine
DX: R05.9 Cough, unspecified (principal); H65.01 Acute serous otitis media, right ear; Z20.822 Contact with and (suspected) exposure to COVID-19; K21.9 Gastro-esophageal reflux disease without esophagitis; F41.9 Anxiety disorder, unspecified; F32.A Depression, unspecified
CPT/HCPCS: 87081; 87426; 87804; 87880; 99213; G0463

== ENCOUNTER 2025-09-11 13:28 | Emergency (ER) | payer OTHER, SELFPAY ==
[2025-09-11 13:45] VITALS: BP 136/77; PULSE 83; RESP 16; TEMP 37.2; O2SAT 99
[2025-09-11 14:15] LABS: BEDSIDEPREGUCG Negative (Negative); EDUAAPPEAR Clear; EDUABILI Negative (Negative); EDUABLOOD Trace (Negative); EDUACOLOR1 Yellow; EDUAGLUCOSE Negative (Negative); EDUAKETONE Negative (Negative); EDUALEUKO Trace (Negative); EDUANITRATE Negative (Negative); EDUAPH 7.0; EDUAPROTEIN Negative (Negative); EDUASPGRAVITY 1.020; EDUAUROBILI 0.2
--- NOTE | 2025-09-11 14:15 | ED.GENADULT ---
HPI - General Adult General Chief complaint: Urogenital-Female Stated complaint: urinary irritation Time Seen by Provider: 09/11/25 14:10 Source: patient Mode of arrival: ambulatory Limitations: no limitations History of Present Illness HPI narrative: 49-year-old female patient presents to [facility] with complaints of vaginal symptoms. Patient states yesterday she states that she was have increase frequency in urination noticed some blood at times when she would go to the bathroom. Patient states that she did have pain with urination. Patient states the vaginal area has been very irritated and noticed that she had vaginal irritation for about 3-4 days prior. Denies fevers body aches or chills. Denies lower back pain or lower abdominal pain. Patient states she is sexually active at times but with only 1 person but they are not necessarily monogamous. Patient states last sexual episode was approximately 2-3 weeks ago. Patient states she may have some clear discharge and specifically has pain not necessarily itching. Last menstrual cycle was approximately 4 months ago Related Data Home Medications ?Medication ?Instructions ?Recorded ?Confirmed ?Last Taken ?Type escitalopram oxalate 5 mg tablet mg 09/01/25 Unknown History Allergies Allergy/AdvReac Type Severity Reaction Status Date / Time metronidazole Allergy Intermediate Rash Verified 09/11/25 13:51 fluconazole Allergy Unknown Rash Verified 09/11/25 13:51 Penicillins Allergy Unknown Unknown Verified 09/11/25 13:51 shellfish derived Allergy Unknown Verified 09/11/25 13:51 Review of Systems Review of Systems: CONSTITUTIONAL: Denies fever, chills, or sweats. EYES: Denies visual changes, redness, or discharge. ENT: Denies rhinorrhea, congestion, sore throat, or otalgia. CARDIOVASCULAR: Denies chest pain, palpitations, or edema. RESPIRATORY: Denies cough or dyspnea. GASTROINTESTINAL: Denies abdominal pain, nausea, vomiting, or diarrhea. GENITOURINARY: Positive dysuria positive hematuria. SKIN: Denies rash or itching. MUSCULOSKELETAL: Denies back pain, joint pain, or myalgia. NEUROLOGIC: Denies headache, numbness, or weakness. PSYCHIATRIC: Denies anxiety or depression. [facility] Past Medical History Medical History Sleep apnea Anemia GERD (gastroesophageal reflux disease) Anxiety and depression Surgical History Surgical History (Updated 09/02/25 @ 12:04 by Fidelina Julien APRN) Hx of laparoscopy ectopic History of dilatation and curettage Social History Social History Smoking status: Never smoker Gender identity (if verbalized by the patient): Female Sexual Orientation (if Verbalized by the Patient): Straight or Heterosexual Exam Narrative: GENERAL: Well-appearing, well-nourished, and in no acute distress. HEAD: Normocephalic, atraumatic. EYES: PERRLA and EOMI. ENT: Nares clear, no rhinorrhea or epistaxis. Mucous membranes moist. NECK: Supple. No lymphadenopathy CHEST: Clear to auscultation. No respiratory distress. HEART: Regular rate and rhythm. No murmur heard. Normal peripheral pulses. ABDOMEN: Soft, flat, nondistended. No guarding, rebound tenderness, or rigid. No pulsatilla masses. Bowel sounds present in all four quadrants. No organomegaly. Negative Bonner?s sign. No periumbicial tenderness. No Supra public tenderness or distension. Good femoral pulses bilaterally. No hernia noted. No scars or surface trauma. Mild CVA tenderness on the right. : Normal external female genitalia. OS is closed. No adnexal fullness or TTP. No CVA tenderness to percussion. Patient does have some white milky discharge noted along with a little bit of blood noted to the cervix. EXTREMITIES: Normal range of motion. No edema. SKIN: Warm, dry, no rash. NEURO: No focal deficits. Alert and oriented x3. Course Course Level of Care: Express Care Visit Vital Signs Vital signs: Vital Signs Temperature 37.2 C 09/11/25 13:45 Pulse Rate 83 09/11/25 13:45 Respiratory Rate 16 09/11/25 13:45 Blood Pressure 136/77 09/11/25 13:45 Pulse Oximetry 99 09/11/25 13:45 Oxygen Delivery Room Air 09/11/25 13:45 Temperature 37.2 C 09/11/25 13:45 Pulse Rate 83 09/11/25 13:45 Respiratory Rate 16 09/11/25 13:45 Blood Pressure 136/77 09/11/25 13:45 Pulse Oximetry 99 09/11/25 13:45 Oxygen Delivery Room Air 09/11/25 13:45 Vital signs reviewed. Medical Decision Making Vital Signs Vital Signs: Vital Signs Temperature 37.2 C 09/11/25 13:45 Pulse Rate 83 09/11/25 13:45 Respiratory Rate 16 09/11/25 13:45 Blood Pressure 136/77 09/11/25 13:45 Pulse Oximetry 99 09/11/25 13:45 Oxygen Delivery Room Air 09/11/25 13:45 Temperature 37.2 C 09/11/25 13:45 Pulse Rate 83 09/11/25 13:45 Respiratory Rate 16 09/11/25 13:45 Blood Pressure 136/77 09/11/25 13:45 Pulse Oximetry 99 09/11/25 13:45 Oxygen Delivery Room Air 09/11/25 13:45 Lab Data Labs: Lab Results 09/11/25 Range/Units 13:52 POC Urine Color Yellow POC Urine Clarity Clear POC Urine pH 7.0 POC Ur Specif [place] 1.020 POC Urine Protein Negative (Negative) POC Ur Glucose (UA) Negative (Negative) POC Urine Ketones Negative (Negative) POC Urine Blood Trace (Negative) POC Urine Nitrite Negative (Negative) POC Urine Bilirubin Negative (Negative) POC Urine Urobilinogen 0.2 POC U Leukocyte Esteras Trace (Negative) POC Urine HCG, Qual Negative (Negative) Critical Care Time Critical Care Time Critical Care Time: No Discharge Plan Discharge Clinical Impression: Urinary tract infection, Candidiasis of vagina Patient Disposition: Home Condition: Stable Instructions: Antibiotic Form, Urinary Tract Infection in Women (ED) Additional Instructions: We will send a urine culture off to the lab; if the culture identifies an organism that the prescribed antibiotic will not treat, you will receive a phone call from an urgent care staff member and an appropriate antibiotic will be prescribed. -Your symptoms should begin to improve within a day of starting antibiotics. But you should finish all the antibiotic pills you get. Otherwise your infection might come back. -Also recommend: drink more fluid. It might help flush out germs, and it does no harm -Tylenol/ibuprofen prn for pain or fever -Follow-up with your primary care provider for urine recheck or seek ER visit if condition worsens with high fever, nausea, vomiting and severe back pain. May get some [id number] or vaginal probiotics to help prevent yeast and UTI infections in the future. Patient Language: Thai Prescriptions: New nitrofurantoin monohyd/m-cryst [Macrobid] 100 mg capsule 100 mg PO Q12H 5 Days Qty: 10 0RF Rx Instructions: must administer with a meal/food clotrimazole 1 % cream 1 appful vaginal HS 7 Days Qty: 45 0RF No Action escitalopram oxalate 5 mg tablet amoxicillin-pot clavulanate 875-125 mg tablet 1 tablet PO Q12H Qty: 14 0RF benzonatate 200 mg capsule 200 mg PO TID PRN (Reason: cough) Qty: 20 0RF Rx Instructions: for cough triamcinolone acetonide 0.1 % ointment 1 applic topical BID PRN (Reason: irritation) Qty: 30 0RF albuterol sulfate 90 mcg/actuation HFA aerosol inhaler 1 puff inhalation QID Qty: 6.7 0RF Follow-up/Referrals: Fransisco,Desiree Wiley MD [Primary Care Provider, Unknown] Time of Disposition: 14:50
[2025-09-11 20:14] LABS: Trichomonas Vag PCR NOT DETECTED (NOT DETECTE)
== END 2025-09-11 14:55 | disposition home or self-care (01) ==
PROVIDERS: Emergency Provider Nurse Practitioner Family; PCP Internal Medicine
DX: N39.0 Urinary tract infection, site not specified (principal); B37.31 Acute candidiasis of vulva and vagina; Z11.3 Encounter for screening for infections with a predominantly sexual mode of transmission; K21.9 Gastro-esophageal reflux disease without esophagitis; F41.9 Anxiety disorder, unspecified; F32.A Depression, unspecified
CPT/HCPCS: 81003; 81025; 87086; 87491; 87591; 87661; 87798; 99214; G0463